=== PATIENT | female | born 1950 | race Caucasian/White ===

== ENCOUNTER 2018-10-15 12:22 | Inpatient (IN) | payer MEDICARE, MEDICAID | END 2018-10-18 15:00 | disposition home or self-care (01) | LOC: ER 12:22 → SUR 3N 15:12 | DX: M86.9 Osteomyelitis, unspecified (principal); E11.69 Type 2 diabetes mellitus with other specified complication; E11.40 Type 2 diabetes mellitus with diabetic neuropathy, unspecified; L03.039 Cellulitis of unspecified toe ==

== ENCOUNTER 2021-02-12 10:47 | Inpatient (IN) | payer BC, MEDICAID ==
[~2021-02-12] VITALS: Ht 157.5 cm; Wt 68.3 kg
[~2021-02-12 10:47] MED LIST: ACET-2119 PO; DIPH-915 PO; GLARGINE INSULIN SQ; IBUP-1984 PO; vancomycin/NS 1 GM ADD-VANTAGE 250 ML IV PRN
[2021-02-12] MEDS ORDERED: acetaminophen 325mg tablet PO STA (12:07)
[2021-02-12] MEDS ORDERED: morphine 4 MG/ML inj SYRINge IV ONE ×2 (12:10→13:05)
[2021-02-12] MEDS ORDERED: ondansetron/PF 4mg/2ml inj IV ONE (12:10)
[2021-02-12] MEDS ORDERED: piperacillin/tazo 3.375gm/50ml 50 ML IV ONE (12:10)
[2021-02-12] MEDS ORDERED: normal saline 1000ML IV soln IV ONE (12:10)
[2021-02-12] MEDS ORDERED: vancomycin/NS 1 GM ADD-VANTAGE 250 ML IV ONE (12:10)
--- NOTE | 2021-02-12 12:31 | NUR ---
PT CAME IN WITH COMPLAINTS OF ARM PAIN. UPON PHYSICAL ASSESSMENT A LARGE DRAINING WOUND WAS DISCOVERED ON LEFT FOOT. PT STATES SHE HAS BEEN DOING HER OWN WOUND CARE AND SHE HAS HAD IT FOR ABOUT 2 WEEKS.
--- NOTE | 2021-02-12 13:06 | NUR ---
VASCULAR AT BEDSIDE. PATIENT REPORTS 10/10 PAIN, PROVIDER NOTIFIED AND VERBAL ORDER OF MORPHINE 4MG IVP NOW.
[2021-02-12] MEDS ORDERED: morphine 4 MG/ML inj SYRINge IM STA (13:07)
[2021-02-12 13:09] LABS: BASOPHILS % (AUTO) 0.1 % (0-1); EOSINOPHILS # (AUTO) 0.5 X10'3 (0-0.9); EOSINOPHILS % (AUTO) 1.5 % (0-6); HEMATOCRIT 30.5 % (35.0-45.0); LYMPHOCYTES % (AUTO) 3.3 % (21-51); MEAN CORPUSCULAR HEMOGLOBIN 26.6 PG (27.0-31.0); MEAN CORPUSCULAR HGB CONC 32.8 g/dL (33.0-36.5); MEAN PLATELET VOLUME 7.1 FL (7.4-10.4); MONOCYTES # (AUTO) 0.3 X10'3 (0-0.9); MONOCYTES % (AUTO) 0.9 % (2-12); NEUTROPHILS # (AUTO) 29.3 X10'3 (1.8-7.7); NEUTROPHILS % (AUTO) 94.2 % (42-75); PLATELET COUNT 458 X10'3 (140-440); RED BLOOD COUNT 3.77 X10'6 (4.20-5.60)
[2021-02-12 13:17] LABS: ALANINE AMINOTRANSFERASE 35 U/L (12-78); ALBUMIN 1.6 G/DL (3.4-5.0); ALBUMIN/GLOBULIN RATIO 0.3 (1.1-1.5); ALKALINE PHOSPHATASE 193 IU/L (46-116); ANION GAP 21 (8-16); ASPARTATE AMINO TRANSFERASE 50 U/L (10-37); BILIRUBIN,TOTAL 1.3 MG/DL (0.1-1.0); BLOOD UREA NITROGEN 86 MG/DL (7-18); BUN/CREATININE RATIO 30.9 (6.6-38.0); CALCIUM 7.2 MG/DL (8.5-10.1); CHLORIDE 103 MMOL/L (99-107); CREATININE 2.78 MG/DL (0.40-0.90); GLUCOSE 89 MG/DL (70-104); POTASSIUM 4.7 MMOL/L (3.5-5.1); SODIUM 139 MMOL/L (135-145); TOTAL PROTEIN 7.3 G/DL (6.4-8.2); eGFR 17 ML/MIN
[2021-02-12 13:18] LABS: ETHANOL < 0.010 GM/DL (0.0-0.010)
[2021-02-12 13:19] LABS: TOTAL CARBON DIOXIDE 14.8 MMOL/L (24-32)
[2021-02-12 13:32] LABS: TOTAL CELLS COUNTED 100
[2021-02-12 13:34] LABS: ANISOCYTOSIS 2+; PLATELET ESTIMATE INCREASED; TARGET CELLS FEW
[2021-02-12 13:43] LABS: CLARITY,URINE CLEAR (Clear); GLUCOSE, URINE NEGATIVE (Neg); KETONES,URINE NEGATIVE (Neg); LEUKOCYTE ESTERASE ,URINE NEGATIVE (Neg); NITRITES, URINE NEGATIVE (Neg); OCCULT BLOOD,URINE NEGATIVE (Neg); PROTEIN,URINE TRACE mg/dl (Neg)
[2021-02-12 13:44] LABS: COLOR,URINE DARK YELLOW (Yellow); UA COLLECTION TYPE FOLEY CATH
[2021-02-12 13:51] LABS: BACTERIA,URINE NONE SEEN /HPF (Neg); MUCUS STRANDS FEW /LPF (Neg); RBC,URINE 0-2 /HPF (0-2); SQUAMOUS EPITHELIAL CELL,UR FEW /LPF (FEW); WBC,URINE 0-4 /HPF (0-4)
[2021-02-12 13:53] LABS: FINE GRANULAR CAST 0-3 /LPF (NEGATIVE); RENAL CELLS, URINE FEW /HPF
[2021-02-12 13:54] LABS: WBC CASTS 0-3 /LPF (NEGATIVE)
[2021-02-12] MEDS ORDERED: HYDR12.55 PO (14:06)
[2021-02-12] MEDS ORDERED: AMLO5TAB16 PO (14:06)
[2021-02-12] MEDS ORDERED: LISI10TA27 PO (14:06)
[2021-02-12] MEDS ORDERED: LANTUS SQ (14:06)
[2021-02-12] MEDS ORDERED: AMIT10TA6 PO (14:06)
[2021-02-12] MEDS ORDERED: METF-950 PO (14:06)
[2021-02-12] MEDS ORDERED: GABA300C PO (14:06)
[2021-02-12] MEDS ORDERED: ATOR10TA70 PO (14:06)
[2021-02-12] MEDS ORDERED: OMEP40CA21 PO (14:06)
[2021-02-12] MEDS ORDERED: mag hydrox/Alum hydrox/simeth 30ml oral suspension PO PRN (14:10)
[2021-02-12] MEDS ORDERED: HYDROcodone/acetaminophen 5mg/325mg tablet PO PRN (14:10)
[2021-02-12] MEDS ORDERED: acetaminophen 325mg tablet PO PRN ×2 (14:10)
[2021-02-12] MEDS ORDERED: magnesium hydroxide 30ml (MOM) UD suspension PO PRN (14:10)
[2021-02-12 14:12] LABS: URINE AMPHETAMINE SCREEN POSITIVE (Neg); URINE BARBITUATE SCREEN NEGATIVE (Neg); URINE BENZODIAZEPINES SCREEN NEGATIVE (Neg); URINE CANNABINOID SCREEN NEGATIVE (Neg); URINE COCAINE SCREEN NEGATIVE (Neg); URINE METHADONE SCREEN NEGATIVE (Neg); URINE OPIATE SCREEN NEGATIVE (Neg); URINE PHENCYCLIDINE SCREEN NEGATIVE (Neg)
[2021-02-12 15:00] VITALS: BP 101/48
[2021-02-12] MEDS: normal saline 1000ml 1,000 ML IV SCH (15:10)
[2021-02-12] MEDS: CefTRIAXone/D5W-Rocephin 1gm 50 ML IV SCH (15:10)
--- NOTE | 2021-02-12 15:20 | NUR ---
Patient in room ED 13. I have received report from MORIS Kevin and had the opportunity to ask questions. Awaiting patient arrival from ED to assume patient care.
[2021-02-12] MEDS: metroNIDAZOLE-Flagyl 500mg/NS 100 ML IV SCH (16:00)
[2021-02-12 17:59] VITALS: BP 101/48
[2021-02-12 18:00] VITALS: BP 87/48
--- NOTE | 2021-02-12 18:00 | NUR ---
Patient in room U 3016. I have received report from Penelope SUBRAMANIAN and had the opportunity to ask questions and assume patient care Addendum: 02/12/21 at 1847 by Padmini Mendez RN Amended: Links added.
--- NOTE | 2021-02-12 18:33 | NUR ---
Patient in room U 3017. I have received report from MORIS Washington and had the opportunity to ask questions and assume patient care. Addendum: 02/12/21 at 1834 by Penelope Hernandez RN Report not received, report given: Problems reprioritized. Patient report given, questions answered & plan of care reviewed with MORIS Washington.
--- NOTE | 2021-02-12 19:30 | NUR ---
Pt. awake and Alert to own name and only. Reoriented pt. to place and events. On assessment, Pt. is lethargic and drifts right back to sleep during conversation time. No c/o N/V at this time. Pt. has multiple wounds on bilateral upper extremities and a big left foot wound that is necrotic in appearance MEAT STUFFER and no drainage noted at this time. Left upper extremity with cellulitis weeping and a wound under the palm. Elevated the left upper extremity on a pillow for comfort. Bed in low position and call light within reach. Will continue monitoring. Addendum: 02/13/21 at 0214 by Padmini Mendez RN Amended: Links added.
[2021-02-12] MEDS: docusate sod 100mg capsule PO SCH (20:14)
[2021-02-12] MEDS: amitriptyline 10mg tablet PO SCH (20:14)
[2021-02-12] MEDS: gabapentin 300mg capsule PO SCH (20:15)
--- NOTE | 2021-02-12 21:00 | NUR ---
Offered pt. a turkey sandwich which pt. ate 25% of the sandwich. Addendum: 02/13/21 at 0220 by Padmini Mendez RN Amended: Links added.
[2021-02-12 22:00] VITALS: BP 99/42
[2021-02-13] VITALS (16 sets, daily range): BP systolic 83–116; BP diastolic 35–52
[2021-02-13] MEDS: metroNIDAZOLE-Flagyl 500mg/NS 100 ML IV SCH ×3 (00:33→16:46)
[2021-02-13] MEDS: normal saline 1000ml 1,000 ML IV SCH ×2 (00:44→10:10)
[2021-02-13] MEDS: HYDROcodone/acetaminophen 10/325mg tab PO PRN (03:40)
--- NOTE | 2021-02-13 06:00 | NUR ---
Problems reprioritized. Patient report given, questions answered & plan of care reviewed with Halina SUBRAMANIAN. Addendum: 02/13/21 at 0752 by Padmini Mendez RN Amended: Links added.
--- NOTE | 2021-02-13 06:33 | NUR ---
Patient in room PCU 3017. I have received report from trinity solano and had the opportunity to ask questions and assume patient care.
[2021-02-13] MEDS: pantoprazole 40mg Tablet.DR PO SCH (07:49)
[2021-02-13] MEDS: CefTRIAXone/D5W-Rocephin 1gm 50 ML IV SCH (07:50)
[2021-02-13] MEDS ORDERED: enoxaparin 40mg/0.4ml syringe SUBCUT SCH (08:00)
--- NOTE | 2021-02-13 08:00 | NUR ---
dr. alfaro notified of critical co2 of 11.9, orders taken
[2021-02-13 08:23] LABS: BASOPHILS % (AUTO) 0.1 % (0-1); EOSINOPHILS # (AUTO) 0.1 X10'3 (0-0.9); EOSINOPHILS % (AUTO) 0.2 % (0-6); HEMATOCRIT 31.6 % (35.0-45.0); HEMOGLOBIN 10.1 g/dl (12.0-16.0); LYMPHOCYTES # (AUTO) 0.8 X10'3 (1.1-4.8); LYMPHOCYTES % (AUTO) 2.9 % (21-51); MEAN CORPUSCULAR HEMOGLOBIN 26.9 PG (27.0-31.0); MEAN CORPUSCULAR VOLUME 84.2 FL (78-98); MONOCYTES # (AUTO) 0.3 X10'3 (0-0.9); MONOCYTES % (AUTO) 1.1 % (2-12); NEUTROPHILS # (AUTO) 27.8 X10'3 (1.8-7.7); NEUTROPHILS % (AUTO) 95.7 % (42-75); PLATELET COUNT 427 X10'3 (140-440); RED BLOOD COUNT 3.75 X10'6 (4.20-5.60); RED CELL DISTRIBUTION WIDTH 19.3 % (11.5-14.5)
[2021-02-13] MEDS: ondansetron/PF 4mg/2ml inj IV PRN (08:25)
[2021-02-13] MEDS: gabapentin 300mg capsule PO SCH (08:27)
[2021-02-13] MEDS: docusate sod 100mg capsule PO SCH ×2 (08:27→20:00)
[2021-02-13] MEDS: atorvastatin 10mg tablet PO SCH (08:27)
[2021-02-13 08:40] LABS: ALBUMIN 1.5 G/DL (3.4-5.0); ANION GAP 24 (8-16); BLOOD UREA NITROGEN 97 MG/DL (7-18); BUN/CREATININE RATIO 31.7 (6.6-38.0); CALCIUM 7.1 MG/DL (8.5-10.1); CHLORIDE 106 MMOL/L (99-107); CREATININE 3.06 MG/DL (0.40-0.90); GLUCOSE 97 MG/DL (70-104); POTASSIUM 4.1 MMOL/L (3.5-5.1); SODIUM 142 MMOL/L (135-145); VANCOMYCIN,TROUGH 16.1 UG/ML (6.0-14.0); eGFR 15 ML/MIN
[2021-02-13 08:41] LABS: TOTAL CARBON DIOXIDE 11.9 MMOL/L (24-32)
--- NOTE | 2021-02-13 08:43 | NUR ---
CRITICAL LAB VALUE TAKEN FROM LAB, REPORTED TO PRIMARY RN.
--- NOTE | 2021-02-13 08:49 | NUR ---
Page Sent promotional table spacer PAGER ID: [phone] MESSAGE: [id number] Monet. Critical CO2 11.9 Halina [phone]
[2021-02-13 09:08] LABS: ANISOCYTOSIS 2+; PLATELET ESTIMATE NORMAL; TOTAL CELLS COUNTED 100
[2021-02-13 09:09] LABS: BURR CELLS 1+
[2021-02-13 09:13] LABS: SCHISTOCYTES FEW
[2021-02-13] MEDS: sodium bicarbonate (8.4%) inj. 100 MEQ in dextrose 5%-water 1,000 ML IV SCH (11:36)
[2021-02-13] MEDS: nystatin 500,000 unit/5ML UD oral suspension PO SCH ×2 (13:00→21:00)
[2021-02-13] MEDS: nystatin 15 GM powder TP SCH ×2 (13:00→21:00)
[2021-02-13] MEDS ORDERED: heparin 10,000 units/1 ML INJ IV PRN (13:05)
[2021-02-13] MEDS ORDERED: heparin 10,000 units/1 ML INJ IV ONE (13:05)
--- NOTE | 2021-02-13 14:54 | NUR ---
Nabil Consult: Pt admit DX sepsis r/t gangrenous L foot, metabolic encephalopathy r/t sepsis, PVD, AMY, and T2DM per MD note. Tox screen positive for meth per EMR. Nabil 12 w/ L plantar foot and L hand unstageable pressure areas as well as partial thickness abrasions to L forearm and R knee per WOC note. Pt AOx2/confused per EMR not appropriate for high protein ed at this time. Pt refused first two carb controlled meals this admit though noted to have nausea per MD note; likely nausea and ALOC impacting PO hx. Noted pt hx T2DM last A1C 03.10 using Lantus and Metformin at home per EMR. RD d/w RN regarding new A1C this admit if MD agreeable. LBM 02/11 receiving routine colace. Pt would benefit from Raf smoothie ONS BID for wound healing needs once more appropriate and no longer refusing meals. Will continue to monitor for additional protein/kcal needs this admit. Rec: 1. continue carb controlled diet; encourage PO 2. Once stops refusing meals; Raf smoothie ONS BID for wound healing 3. MVI for wound healing 4. Updated A1C this admit per MD; last A1C 03.10 5. routine bowel care 6. scaled wt this admit; subsequent weekly wts Addendum: 02/13/21 at [address] Amended: Links added.
--- NOTE | 2021-02-13 16:00 | NUR ---
picc line rn @ bedside. put in 2 new pivs ,one in right upper arm,one in right forearm pt given heparin bolus prior to ct via gurney for lle ct w/o contrast , pt returned from ct with rfa iv out approx 1730 hepain gtt started with noc shift rn.
--- NOTE | 2021-02-13 18:30 | NUR ---
Patient in room PCU 3017B. I have received report from MORIS Meade and had the opportunity to ask questions and assume patient care.
--- NOTE | 2021-02-13 18:45 | NUR ---
Problems reprioritized. Patient report given, questions answered & plan of care reviewed with trinity farias.
[2021-02-13] MEDS: heparin 25,000 UNIT/250ml bag 250 ML IV SCH (18:54)
[2021-02-13] MEDS: VANCOMYCIN LEVEL IV SCH (19:17)
[2021-02-13] MEDS ORDERED: cloNIDine hcl/PF 100mcg/ml inj ONE (19:36)
[2021-02-13] MEDS ORDERED: famotidine/PF 10 mg/ml inj IV ONE (19:38)
--- NOTE | 2021-02-13 19:50 | NUR ---
Patient taken down to OR by RN
[2021-02-13] MEDS ORDERED: sevoflurane 250ml liquid IH ONE (20:31)
[2021-02-13] MEDS: amitriptyline 10mg tablet PO SCH (21:00)
[2021-02-13] MEDS: lactobacillus rhamnosus 10,000 MMU CELLS/CAPSULE PO SCH (21:18)
[2021-02-13] MEDS ORDERED: 0.9 % SODIUM CHLORIDE 10 ML VIAL ONE ×2 (21:20)
[2021-02-13] MEDS ORDERED: ePHEDrine 50MG/ML INJ. ONE (21:20)
[2021-02-13] MEDS ORDERED: ROPIVAcaine 0.5% (5mg/ml) 30ml vial ONE (21:20)
[2021-02-13] MEDS ORDERED: LIDOcaine 1%/PF 5ML 10 MG/ML VIAL ONE (21:20)
[2021-02-13] MEDS ORDERED: propofol inj 20 ML IV ONE (21:21)
[2021-02-13] MEDS ORDERED: dexamethasone sod phosphate 4mg/ml inj. ONE (21:21)
--- NOTE | 2021-02-13 21:45 | NUR ---
Received from OR via BED, accompanied by Anesthesiologist MINOO and report given by Anesthesiolgist. NE SOMNOLENT, AROUSES TO VERBAL STIMULI. DOES NOT FOLLOW VERBAL COMMANDS. NO SIGNS OR SX OF PAIN NOTED, VSS. BP WITH WIDE PULSE PRESSURE, SIMILAR TO VITALS DURING HOSPITAL STAY. 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 STUMP ELEVATED ON PILLOW, R HEEL FLOATED WELL. FC PATENT. BICARB AND HEPARIN GTTS PRESENT.
[2021-02-13] MEDS ORDERED: acetaminophen 1,000mg/100ml IV 100 ML IV PRN (21:50)
[2021-02-13] MEDS ORDERED: morphine 2 MG/ML inj. syringe IV PRN (21:50)
[2021-02-13] MEDS ORDERED: normal saline 1000ml 1,000 ML IV ONE (21:50)
[2021-02-13] MEDS ORDERED: ondansetron/PF 4mg/2ml inj IV PRN (21:50)
--- NOTE | 2021-02-13 22:38 | NUR ---
Received report from MORIS Brock from Recovery. Awaiting patient arrival to the floor.
--- NOTE | 2021-02-13 22:50 | NUR ---
Report called to receiving nurse. Transferred via BED Belongings IN PT ROOM. VITALS STABLE, NO CHANGE IN NEURO STATUS. NO PAIN NOTED. TRANSFERRED BACK TO PCU IN STABLE CONDITION. FLOOR RN TO FOLLOW UP ON HEPARIN GTT. Special Issues communicated to receiving nurse.
[2021-02-14] VITALS (12 sets, daily range): BP systolic 98–138; BP diastolic 34–67
[2021-02-14] MEDS: normal saline 1000ml 1,000 ML IV SCH ×2 (00:36→06:10)
[2021-02-14] MEDS: metroNIDAZOLE-Flagyl 500mg/NS 100 ML IV SCH ×4 (00:36→23:42)
[2021-02-14 01:40] LABS: BASOPHILS % (AUTO) 0 % (0-1); EOSINOPHILS % (AUTO) 0.1 % (0-6); HEMATOCRIT 24.6 % (35.0-45.0); HEMOGLOBIN 8.1 g/dl (12.0-16.0); LYMPHOCYTES # (AUTO) 0.4 X10'3 (1.1-4.8); LYMPHOCYTES % (AUTO) 1.7 % (21-51); MEAN CORPUSCULAR HEMOGLOBIN 26.9 PG (27.0-31.0); MEAN CORPUSCULAR HGB CONC 32.7 g/dL (33.0-36.5); MEAN CORPUSCULAR VOLUME 82.2 FL (78-98); MEAN PLATELET VOLUME 6.7 FL (7.4-10.4); MONOCYTES # (AUTO) 0.1 X10'3 (0-0.9); MONOCYTES % (AUTO) 0.5 % (2-12); NEUTROPHILS # (AUTO) 24.4 X10'3 (1.8-7.7); NEUTROPHILS % (AUTO) 97.7 % (42-75); PLATELET COUNT 313 X10'3 (140-440); RED BLOOD COUNT 2.99 X10'6 (4.20-5.60); RED CELL DISTRIBUTION WIDTH 18.5 % (11.5-14.5)
[2021-02-14 01:42] LABS: ALBUMIN 1.2 G/DL (3.4-5.0); ANION GAP 18 (8-16); BLOOD UREA NITROGEN 90 MG/DL (7-18); BUN/CREATININE RATIO 31.3 (6.6-38.0); CHLORIDE 109 MMOL/L (99-107); CREATININE 2.88 MG/DL (0.40-0.90); GLUCOSE 199 MG/DL (70-104); SODIUM 140 MMOL/L (135-145); VANCOMYCIN,TROUGH 8.4 UG/ML (6.0-14.0); eGFR 16 ML/MIN
[2021-02-14 01:59] LABS: TOTAL CARBON DIOXIDE 12.6 MMOL/L (24-32)
[2021-02-14 02:01] LABS: CALCIUM 5.5 MG/DL (8.5-10.1)
--- NOTE | 2021-02-14 02:10 | NUR ---
PTT 58 seconds. No rate change needed per protocol. Will continue to monitor
[2021-02-14] MEDS: VANCOMYCIN LEVEL IV SCH (03:00)
[2021-02-14] MEDS: sodium bicarbonate (8.4%) inj. 100 MEQ in dextrose 5%-water 1,000 ML IV SCH ×2 (03:23→16:59)
--- NOTE | 2021-02-14 06:13 | NUR ---
Problems reprioritized. Patient report given, questions answered & plan of care reviewed with Shima RN and MORIS Maynard.
--- NOTE | 2021-02-14 06:25 | NUR ---
Patient in room PCU 3017. I have received report from MORIS Miranda and had the opportunity to ask questions and assume patient care.
--- NOTE | 2021-02-14 06:39 | NUR ---
Patient in room PCU 3017. I have received report from MORIS Miranda and had the opportunity to ask questions and assume patient care.
[2021-02-14] MEDS ORDERED: vancomycin/NS 1 GM ADD-VANTAGE 250 ML IV ONE (07:40)
[2021-02-14] MEDS: CefTRIAXone/D5W-Rocephin 1gm 50 ML IV SCH (07:50)
[2021-02-14] MEDS: nystatin 15 GM powder TP SCH ×3 (07:59→21:06)
[2021-02-14] MEDS: docusate sod 100mg capsule PO SCH ×2 (08:00→20:00)
[2021-02-14] MEDS: atorvastatin 10mg tablet PO SCH (08:00)
[2021-02-14] MEDS: nystatin 500,000 unit/5ML UD oral suspension PO SCH ×3 (08:00→20:10)
[2021-02-14] MEDS: pantoprazole 40mg Tablet.DR PO SCH (08:00)
[2021-02-14] MEDS: lactobacillus rhamnosus 10,000 MMU CELLS/CAPSULE PO SCH ×2 (08:00→20:00)
[2021-02-14] MEDS: gabapentin 300mg capsule PO SCH (08:00)
[2021-02-14] MEDS: heparin 25,000 UNIT/250ml bag 250 ML IV SCH (09:47)
[2021-02-14] MEDS ORDERED: dextrose 50%-water 50ml dispensing syringe IV PRN ×2 (10:00)
[2021-02-14] MEDS ORDERED: glucagon, human recombinant 1mg kit SUBCUT PRN (10:00)
[2021-02-14] MEDS ORDERED: MESSAGE TO PHARMACY PO ONE (10:00)
[2021-02-14] MEDS ORDERED: dextrose ORAL solution 15 GM/59 ML bottle PO PRN ×2 (10:00)
[2021-02-14] MEDS ORDERED: acetaminophen 120MG suppository, rectal RC PRN (10:05)
[2021-02-14 10:56] LABS: HEMOGLOBIN A1C 9.2 % (4.5-6.2)
[2021-02-14] MEDS: insulin Lispro (HumaLOG) vial - multi-dose SQ SCH ×2 (13:25→19:25)
--- NOTE | 2021-02-14 15:20 | NUR ---
Paged Respiratory for new order for ABG Karen Triplett [id number] Pt needs ABG please. Thanks :)
--- NOTE | 2021-02-14 15:22 | NUR ---
Paged CT Re Karen Healy Rm [id number] Pt needs CT of L arm please. Thank you :)
[2021-02-14 15:45] LABS: ABG BASE EXCESS -7.7 mmol/L (-2.0-2.0); ABG HCO3 17.4 mmol/L (22.0-26.0); ABG OXYGEN SATURATION 90.5 % (94-97); ABG PCO2 (T) 36.5 mmHg (32.0-45.0); ABG PO2 (T) 73.5 mmHg (75.0-100.0); ALLEN'S TEST POSITIVE; FCOHb 0.3 % (0.0-3.9); FMetHb 0.3 % (0.0-1.5); PATIENT TEMPERATURE 38.7
--- NOTE | 2021-02-14 18:55 | NUR ---
[place] documentation: I have reviewed and agree with all interventions, assessments performed and documented by MORIS Myanard.
--- NOTE | 2021-02-14 18:55 | NUR ---
[place] Medication Administration: For this medication-pass time frame, all medication were reviewed, dispensed, administered and documented per hospital policy by MORIS Maynard.
--- NOTE | 2021-02-14 18:56 | NUR ---
Problems reprioritized. Patient report given, questions answered & plan of care reviewed with MORIS Poole. Pt sleeping comfortably at change of shift, no signs of distress noted at this time.
[2021-02-14] MEDS: amitriptyline 10mg tablet PO SCH (20:10)
[2021-02-14 20:34] LABS: TOTAL PROTEIN,URINE RANDOM 65.6 MG/DL
[2021-02-14] MEDS: insulin glargine (Lantus) pen - multi-dose SQ SCH (21:23)
[2021-02-14] MEDS: morphine 2 MG/ML inj. syringe IV PRN (21:28)
[2021-02-15] MEDS: sodium bicarbonate (8.4%) inj. 100 MEQ in dextrose 5%-water 1,000 ML IV SCH ×2 (00:30→10:22)
[2021-02-15 02:00] VITALS: BP 126/59
[2021-02-15] MEDS: VANCOMYCIN LEVEL IV SCH (03:40)
[2021-02-15] MEDS: morphine 2 MG/ML inj. syringe IV PRN ×2 (04:16→21:37)
--- NOTE | 2021-02-15 06:10 | NUR ---
Problems reprioritized. Patient report given, questions answered & plan of care reviewed with WILLARD. Addendum: 02/15/21 at 0610 by Blaise Prince RN Amended: Links added.
--- NOTE | 2021-02-15 06:21 | NUR ---
Patient in room PCU 3017. I have received report from MORIS Poole and had the opportunity to ask questions and assume patient care.
--- NOTE | 2021-02-15 06:22 | NUR ---
Patient in room PCU 3017. I have received report from MORIS Poole and had the opportunity to ask questions and assume patient care.
[2021-02-15] MEDS: HYDROcodone/acetaminophen 10/325mg tab PO PRN ×3 (06:43→23:21)
[2021-02-15 07:00] VITALS: BP 142/65
[2021-02-15] MEDS: metroNIDAZOLE-Flagyl 500mg/NS 100 ML IV SCH (08:22)
[2021-02-15] MEDS: ondansetron/PF 4mg/2ml inj IV PRN ×2 (08:22→21:43)
[2021-02-15] MEDS: CefTRIAXone/D5W-Rocephin 1gm 50 ML IV SCH (08:22)
[2021-02-15] MEDS: atorvastatin 10mg tablet PO SCH (08:23)
[2021-02-15] MEDS: lactobacillus rhamnosus 10,000 MMU CELLS/CAPSULE PO SCH ×2 (08:23→21:16)
[2021-02-15] MEDS: pantoprazole 40mg Tablet.DR PO SCH (08:23)
[2021-02-15] MEDS: docusate sod 100mg capsule PO SCH ×2 (08:23→21:17)
[2021-02-15] MEDS: gabapentin 300mg capsule PO SCH (08:23)
[2021-02-15] MEDS: nystatin 500,000 unit/5ML UD oral suspension PO SCH ×3 (08:23→21:18)
[2021-02-15] MEDS: nystatin 15 GM powder TP SCH ×3 (08:24→21:16)
--- NOTE | 2021-02-15 08:25 | NUR ---
Diabetes Consult: Hb A1C 9.2 Pt noted to be A&O x 1 and confused. Diabetes education not appropriate at this time. Pt on glycemic protocol w/ BG mostly controlled. Will continue to monitor. Addendum: 02/15/21 at [address] Amended: Links added.
[2021-02-15] MEDS: insulin Lispro (HumaLOG) vial - multi-dose SQ SCH ×2 (08:58→13:36)
--- NOTE | 2021-02-15 09:20 | NUR ---
[id number] MESSAGE: re 3018N Karen Healy, critical potassium 3.0 down from 4.0 yesterday. Would like to replace per protocol; need orders for replacement. Please adviseAleyda 2046 U
[2021-02-15 09:45] LABS: BASOPHILS % (AUTO) 0.1 % (0-1); EOSINOPHILS # (AUTO) 0.1 X10'3 (0-0.9); EOSINOPHILS % (AUTO) 0.4 % (0-6); HEMATOCRIT 27.2 % (35.0-45.0); HEMOGLOBIN 8.8 g/dl (12.0-16.0); LYMPHOCYTES % (AUTO) 5.6 % (21-51); MEAN CORPUSCULAR HEMOGLOBIN 25.9 PG (27.0-31.0); MEAN CORPUSCULAR HGB CONC 32.4 g/dL (33.0-36.5); MEAN PLATELET VOLUME 6.7 FL (7.4-10.4); MONOCYTES # (AUTO) 0.4 X10'3 (0-0.9); MONOCYTES % (AUTO) 2.2 % (2-12); NEUTROPHILS # (AUTO) 15.8 X10'3 (1.8-7.7); NEUTROPHILS % (AUTO) 91.7 % (42-75); PLATELET COUNT 310 X10'3 (140-440); RED CELL DISTRIBUTION WIDTH 18.2 % (11.5-14.5); WHITE BLOOD COUNT 17.3 X10'3 (4.5-11.0)
[2021-02-15 09:51] LABS: ALBUMIN 1.4 G/DL (3.4-5.0); ANION GAP 11 (8-16); BLOOD UREA NITROGEN 75 MG/DL (7-18); BUN/CREATININE RATIO 44.6 (6.6-38.0); CALCIUM 7.6 MG/DL (8.5-10.1); CHLORIDE 107 MMOL/L (99-107); CREATININE 1.68 MG/DL (0.40-0.90); GLUCOSE 251 MG/DL (70-104); PHOSPHORUS 5.1 MG/DL (2.3-4.5); SODIUM 143 MMOL/L (135-145); TOTAL CARBON DIOXIDE 25.4 MMOL/L (24-32); VANCOMYCIN,TROUGH 13.5 UG/ML (6.0-14.0); eGFR 30 ML/MIN
[2021-02-15 11:00] VITALS: BP 129/63
[2021-02-15] MEDS ORDERED: magnesium 4gm in 100ml NS 100 ML IV PRN (11:30)
[2021-02-15] MEDS ORDERED: magnesium Cl slow-release 64mg tablet PO PRN (11:30)
[2021-02-15] MEDS ORDERED: potassium Cl 20 mEq SR tablet PO PRN ×2 (11:30)
--- NOTE | 2021-02-15 11:42 | NUR ---
[id number] MESSAGE: re 3010P Karen Healy, critical potassium 3.0 down from 4.0 yesterday. Would like to replace per protocol; need orders for replacement. Please adviseAleyda 5978 U
[2021-02-15] MEDS ORDERED: POTASSIUM BICARB 20meq eff tab 20 MEQ TABLET.EFF PO PRN ×2 (12:15)
[2021-02-15] MEDS: vancomycin/NS 1 GM ADD-VANTAGE 250 ML IV SCH (15:18)
[2021-02-15] MEDS: potassium Cl 40MEQ/1/2NS 520ml 520 ML IV PRN ×2 (15:18→21:28)
[2021-02-15] MEDS: metroNIDAZOLE 500mg tablet PO SCH ×2 (16:34→21:17)
[2021-02-15 18:00] VITALS: BP 141/56
--- NOTE | 2021-02-15 18:30 | NUR ---
[place] Medication Administration: For this medication-pass time frame, all medication were reviewed, dispensed, administered and documented per hospital policy by MORIS Maynard.
--- NOTE | 2021-02-15 18:30 | NUR ---
[place] documentation: I have reviewed and agree with all interventions, assessments performed and documented by MORIS Maynard.
--- NOTE | 2021-02-15 18:32 | NUR ---
Problems reprioritized. Patient report given, questions answered & plan of care reviewed with MORIS Jiménez.
--- NOTE | 2021-02-15 18:35 | NUR ---
Patient in room PCU 3017. I have received report from SOCO SUBRAMANIAN and had the opportunity to ask questions and assume patient care.
[2021-02-15] MEDS: K and/or MAG REPLACEMENT MC SCH (20:00)
[2021-02-15] MEDS: insulin glargine (Lantus) pen - multi-dose SQ SCH (21:00)
[2021-02-15] MEDS: amitriptyline 10mg tablet PO SCH (21:16)
[2021-02-15 22:00] VITALS: BP 132/59
[2021-02-16 02:00] VITALS: BP 148/64
[2021-02-16] MEDS: morphine 2 MG/ML inj. syringe IV PRN ×3 (02:38→23:13)
[2021-02-16] MEDS: HYDROcodone/acetaminophen 10/325mg tab PO PRN (05:28)
[2021-02-16 06:00] VITALS: BP 141/63
--- NOTE | 2021-02-16 06:02 | NUR ---
Patient in room PCU 3017. I have received report from MORIS Moore and had the opportunity to ask questions and assume patient care.
[2021-02-16 06:13] LABS: BASOPHILS % (AUTO) 0.1 % (0-1); EOSINOPHILS # (AUTO) 0.1 X10'3 (0-0.9); EOSINOPHILS % (AUTO) 0.7 % (0-6); HEMATOCRIT 25.3 % (35.0-45.0); HEMOGLOBIN 8.5 g/dl (12.0-16.0); LYMPHOCYTES # (AUTO) 1.4 X10'3 (1.1-4.8); LYMPHOCYTES % (AUTO) 10.4 % (21-51); MEAN CORPUSCULAR HEMOGLOBIN 26.8 PG (27.0-31.0); MEAN CORPUSCULAR HGB CONC 33.6 g/dL (33.0-36.5); MEAN CORPUSCULAR VOLUME 79.7 FL (78-98); MEAN PLATELET VOLUME 6.5 FL (7.4-10.4); MONOCYTES # (AUTO) 0.4 X10'3 (0-0.9); MONOCYTES % (AUTO) 3.1 % (2-12); NEUTROPHILS # (AUTO) 11.2 X10'3 (1.8-7.7); NEUTROPHILS % (AUTO) 85.7 % (42-75); PLATELET COUNT 242 X10'3 (140-440); RED BLOOD COUNT 3.17 X10'6 (4.20-5.60); RED CELL DISTRIBUTION WIDTH 18.5 % (11.5-14.5); WHITE BLOOD COUNT 13.1 X10'3 (4.5-11.0)
--- NOTE | 2021-02-16 06:15 | NUR ---
Problems reprioritized. Patient report given, questions answered & plan of care reviewed with SOCO SUBRAMANIAN.
--- NOTE | 2021-02-16 06:16 | NUR ---
Patient in room PCU 3017. I have received report from Tino and had the opportunity to ask questions and assume patient care.
[2021-02-16 06:39] LABS: ALANINE AMINOTRANSFERASE 48 U/L (12-78); ALBUMIN 1.4 G/DL (3.4-5.0); ALBUMIN/GLOBULIN RATIO 0.3 (1.1-1.5); ALKALINE PHOSPHATASE 142 IU/L (46-116); ANION GAP 9 (8-16); ASPARTATE AMINO TRANSFERASE 125 U/L (10-37); BILIRUBIN,TOTAL 0.4 MG/DL (0.1-1.0); BLOOD UREA NITROGEN 50 MG/DL (7-18); BUN/CREATININE RATIO 42.7 (6.6-38.0); CALCIUM 8.1 MG/DL (8.5-10.1); CHLORIDE 115 MMOL/L (99-107); CREATINE KINASE 1215 U/L (26-192); CREATININE 1.17 MG/DL (0.40-0.90); GLUCOSE 141 MG/DL (70-104); POTASSIUM 4.3 MMOL/L (3.5-5.1); SODIUM 147 MMOL/L (135-145); TOTAL CARBON DIOXIDE 23.2 MMOL/L (24-32); TOTAL PROTEIN 6.8 G/DL (6.4-8.2); eGFR 46 ML/MIN
[2021-02-16 06:49] LABS: PLATELET ESTIMATE NORMAL; TOTAL CELLS COUNTED 100
[2021-02-16] MEDS: CefTRIAXone/D5W-Rocephin 1gm 50 ML IV SCH (07:51)
[2021-02-16] MEDS: metroNIDAZOLE 500mg tablet PO SCH ×3 (08:00→20:27)
[2021-02-16] MEDS: nystatin 500,000 unit/5ML UD oral suspension PO SCH ×3 (08:00→20:28)
[2021-02-16] MEDS: atorvastatin 10mg tablet PO SCH (08:00)
[2021-02-16] MEDS: K and/or MAG REPLACEMENT MC SCH ×2 (08:00→20:00)
[2021-02-16] MEDS: lactobacillus rhamnosus 10,000 MMU CELLS/CAPSULE PO SCH ×2 (08:00→20:00)
[2021-02-16] MEDS: gabapentin 300mg capsule PO SCH (08:00)
[2021-02-16] MEDS: pantoprazole 40mg Tablet.DR PO SCH (08:00)
[2021-02-16] MEDS: docusate sod 100mg capsule PO SCH ×2 (08:00→20:00)
--- NOTE | 2021-02-16 08:13 | NUR ---
[id number] MESSAGE: re 3017B Karen Healy, positive MRSA wound culture. increasing anxiety - requesting Ativan. Aleyda 1709
[2021-02-16] MEDS: nystatin 15 GM powder TP SCH ×3 (08:54→20:28)
[2021-02-16] MEDS: LORazepam 2 mg/ml vial IV PRN ×2 (09:28→20:26)
[2021-02-16] MEDS ORDERED: LORazepam 2 mg/ml vial IV ONE (10:15)
[2021-02-16 11:00] VITALS: BP 155/65
--- NOTE | 2021-02-16 11:06 | NUR ---
Reassessment: Pt s/p L BKA 02/13. Pt remains A/O x 1 and confused per EMR, DM education continues to not be appropriate at this time. Pt on CHO controlled diet though documented with 0% PO intake throughout LOS. Likely that pt would not be accepting of ONS at this time. Pt would benefit from TF to assist with meeting estimated nutrient needs given confusion, inadequate PO intake, and unstageable wound to palm of left hand likely making it difficult to eat, d/w RN. Will place TF recommendations below for IF pt to get NG tube placed and to begin TF. LBM 02/11. Pt with routine bowel care available however noted meds were held today d/t inability to swallow per EMR. Recommend BSS with ST to assess appropriateness for PO intake at this time. Will continue to follow closely. Recommendations: 1) Advance to regular diet as medically indicated in view of poor PO intake throughout LOS; pending BSS with ST 2) Consider TF to meet estimated nutrient needs given prolonged poor PO intake. IF TF: continuous Vital High Protein with goal rate of 70 mL/hr with additional 100 mL water flush Q4H, prealbumin q Saturday/, daily weights 3) Routine bowel care 4) Weekly scaled weights 5) DM education once stable/alert/oriented, A1c 9.2% Addendum: 02/16/21 at [address] Amended: Links added.
[2021-02-16] MEDS: vancomycin/NS 1 GM ADD-VANTAGE 250 ML IV SCH (12:04)
[2021-02-16] MEDS: insulin Lispro (HumaLOG) vial - multi-dose SQ SCH (13:09)
[2021-02-16] MEDS: haloperidol lactate 5mg/ml inj IM PRN (13:26)
[2021-02-16 15:00] VITALS: BP 159/63
--- NOTE | 2021-02-16 17:17 | NUR ---
Attempted to contact Brother Naren, friend Kayli and Son Miguel to get a [address] with contrast. Nobody has answered. Will keep trying, and let the NOC nurse know to try as well. PINO Rush and Dr Means are aware.
[2021-02-16 18:00] VITALS: BP 123/53
--- NOTE | 2021-02-16 18:10 | NUR ---
Problems reprioritized. Patient report given, questions answered & plan of care reviewed with MORIS Izquierdo.
--- NOTE | 2021-02-16 18:12 | NUR ---
Problems reprioritized. Patient report given, questions answered & plan of care reviewed with MORIS Izquierdo. Pt laying in bed, no signs of distress. Faxed down signed CT contrast screening form to CT.
--- NOTE | 2021-02-16 18:14 | NUR ---
[place] documentation: I have reviewed and agree with all interventions, assessments performed and documented by MORIS Maynard.
--- NOTE | 2021-02-16 18:15 | NUR ---
[place] Medication Administration: For this medication-pass time frame, all medication were reviewed, dispensed, administered and documented per hospital policy by MORIS Maynard.
[2021-02-16] MEDS ORDERED: iohexol 300mg/ml 100ml inj. ONE (18:25)
[2021-02-16] MEDS: amitriptyline 10mg tablet PO SCH (20:30)
[2021-02-16] MEDS: insulin glargine (Lantus) pen - multi-dose SQ SCH (21:00)
[2021-02-16 22:00] VITALS: BP 127/62
[2021-02-17] MEDS: haloperidol lactate 5mg/ml inj IM PRN ×2 (00:02→07:49)
[2021-02-17] MEDS: bisacodyl 10mg suppository rectal RC SCH ×2 (00:02→21:00)
[2021-02-17] MEDS: LORazepam 2 mg/ml vial IV PRN (03:59)
[2021-02-17] MEDS: morphine 2 MG/ML inj. syringe IV PRN ×3 (04:29→23:52)
[2021-02-17 06:00] VITALS: BP 169/77
--- NOTE | 2021-02-17 06:17 | NUR ---
Problems reprioritized. Patient report given, questions answered & plan of care reviewed with MORIS Nava.
[2021-02-17 06:22] LABS: BASOPHILS % (AUTO) 0.2 % (0-1); EOSINOPHILS % (AUTO) 0.2 % (0-6); HEMATOCRIT 26.1 % (35.0-45.0); HEMOGLOBIN 8.6 g/dl (12.0-16.0); LYMPHOCYTES # (AUTO) 1.1 X10'3 (1.1-4.8); LYMPHOCYTES % (AUTO) 8.4 % (21-51); MEAN CORPUSCULAR HEMOGLOBIN 26.9 PG (27.0-31.0); MEAN CORPUSCULAR HGB CONC 32.8 g/dL (33.0-36.5); MEAN PLATELET VOLUME 6.9 FL (7.4-10.4); MONOCYTES # (AUTO) 0.5 X10'3 (0-0.9); MONOCYTES % (AUTO) 3.8 % (2-12); NEUTROPHILS # (AUTO) 11.5 X10'3 (1.8-7.7); NEUTROPHILS % (AUTO) 87.4 % (42-75); PLATELET COUNT 220 X10'3 (140-440); RED BLOOD COUNT 3.19 X10'6 (4.20-5.60); RED CELL DISTRIBUTION WIDTH 18.2 % (11.5-14.5); WHITE BLOOD COUNT 13.2 X10'3 (4.5-11.0)
--- NOTE | 2021-02-17 06:37 | NUR ---
Patient in room PCU 3017. I have received report from MORIS Izquierdo and had the opportunity to ask questions and assume patient care.
[2021-02-17 07:22] LABS: ANISOCYTOSIS 2+; MICROCYTOSIS 1+; PLATELET ESTIMATE NORMAL; POIKILOCYTOSIS FEW; POLYCHROMASIA 1+; TARGET CELLS 1+
[2021-02-17] MEDS: CefTRIAXone/D5W-Rocephin 1gm 50 ML IV SCH (07:49)
[2021-02-17] MEDS: nystatin 15 GM powder TP SCH ×3 (07:53→22:46)
[2021-02-17] MEDS: gabapentin 300mg capsule PO SCH (08:00)
[2021-02-17] MEDS: metroNIDAZOLE 500mg tablet PO SCH (08:00)
[2021-02-17] MEDS: K and/or MAG REPLACEMENT MC SCH ×2 (08:00→20:00)
[2021-02-17] MEDS: lactobacillus rhamnosus 10,000 MMU CELLS/CAPSULE PO SCH ×2 (08:00→20:00)
[2021-02-17] MEDS: nystatin 500,000 unit/5ML UD oral suspension PO SCH ×3 (08:00→21:00)
[2021-02-17] MEDS: pantoprazole 40mg Tablet.DR PO SCH (08:00)
[2021-02-17 08:33] LABS: ALANINE AMINOTRANSFERASE 60 U/L (12-78); ALBUMIN 1.5 G/DL (3.4-5.0); ALBUMIN/GLOBULIN RATIO 0.3 (1.1-1.5); ALKALINE PHOSPHATASE 134 IU/L (46-116); ANION GAP 9 (8-16); ASPARTATE AMINO TRANSFERASE 140 U/L (10-37); BILIRUBIN,TOTAL 0.5 MG/DL (0.1-1.0); BLOOD UREA NITROGEN 30 MG/DL (7-18); CALCIUM 8.2 MG/DL (8.5-10.1); CHLORIDE 115 MMOL/L (99-107); CREATININE 0.91 MG/DL (0.40-0.90); GLUCOSE 155 MG/DL (70-104); POTASSIUM 3.4 MMOL/L (3.5-5.1); SODIUM 151 MMOL/L (135-145); TOTAL CARBON DIOXIDE 26.7 MMOL/L (24-32); eGFR 61 ML/MIN
[2021-02-17 08:36] LABS: CREATINE KINASE 1463 U/L (26-192)
[2021-02-17] MEDS: insulin Lispro (HumaLOG) vial - multi-dose SQ SCH ×3 (08:56→17:31)
[2021-02-17] MEDS ORDERED: ziprasidone IM 20mg inj **IM only IM ONE (10:05)
[2021-02-17] MEDS ORDERED: LORazepam 2 mg/ml vial IV PRN (10:05)
[2021-02-17 11:00] VITALS: BP 177/61
[2021-02-17] MEDS ORDERED: VANCOMYCIN LEVEL IV ONE (11:30)
[2021-02-17] MEDS ORDERED: ziprasidone IM 20mg inj **IM only IM PRN (12:55)
[2021-02-17] MEDS: vancomycin/NS 1 GM ADD-VANTAGE 250 ML IV SCH (13:01)
--- NOTE | 2021-02-17 14:27 | NUR ---
F/u: Pt s/p BSS 02/[address] recs NPO as PO unsafe d/t pt cognitive level. TORIN paged MD regarding recommendation for Corpak placement given pt with 0% PO intake throughout LOS (5 days insufficient PO intake). TORIN also placed a TC to RN regarding recommendation. TF recommendations remain below for IF pt to receive TF. LBM 02/16 documented as a smear, pt receiving routine bowel care. Will continue to follow closely. Recommendations: 1) Advance to regular diet as medically indicated in view of poor PO intake throughout LOS IF pt able to tolerate PO intake; currently NPO per ST recs; CHO controlled diet if pt averaging 65% PO intake 2) Consider TF to meet estimated nutrient needs given prolonged poor PO intake and pt now NPO following BSS with ST. IF TF: continuous Vital High Protein with goal rate of 70 mL/hr to begin at 30 mL/hr and advance by 20 mL Q8H as tolerated to goal rate 3) IF TF, additional 180 mL water flush Q4H (monitor serum Na and adjust as appropriate) with Raf BID to assist with wound healing. To administer, mix Raf packet with 120 mL water and flush tube with 30 mL water before and after administration of Raf 4) IF TF, prealbumin q Saturday/, daily weights 5) Routine bowel care 6) Weekly scaled weights 7) Protein and DM educations once stable/alert/oriented, A1c 9.2% Addendum: 02/17/21 at [address] Amended: Links added.
[2021-02-17 15:00] VITALS: BP 176/60
[2021-02-17] MEDS ORDERED: metroNIDAZOLE-Flagyl 500mg/NS 100 ML IV SCH (16:00)
--- NOTE | 2021-02-17 16:15 | NUR ---
1200 dose 1000mg vanco not administered D/T IV going bad at time of administration. Unable to undo administration D/T medication being DC'd. New IV unable to be initiated until 1610. Pharmacy notified and vanco being retimed accordingly.
[2021-02-17] MEDS ORDERED: iohexol 300mg/ml 100ml inj. ONE (16:52)
[2021-02-17] MEDS: vancomycin inj. 750 MG in normal saline 250ml IV soln 250 ML IV SCH (17:23)
[2021-02-17] MEDS: Potassium Cl inj 20 MEQ in dextrose 5%-water 990 ML IV SCH (17:53)
[2021-02-17 18:00] VITALS: BP 148/60
--- NOTE | 2021-02-17 19:06 | NUR ---
Patient in room PCU 3017. I have received report from Brandy SUBRAMANIAN and had the opportunity to ask questions and assume patient care.
--- NOTE | 2021-02-17 19:10 | NUR ---
Problems reprioritized. Patient report given, questions answered & plan of care reviewed with MORIS Arango.
[2021-02-17] MEDS: insulin glargine (Lantus) pen - multi-dose SQ SCH (21:00)
[2021-02-17] MEDS: amitriptyline 10mg tablet PO SCH (21:00)
[2021-02-17 22:00] VITALS: BP 139/59
[2021-02-17] MEDS: potassium Cl 40MEQ/1/2NS 520ml 520 ML IV PRN (23:59)
[2021-02-18] MEDS ORDERED: vancomycin inj. 750 MG in normal saline 250ml IV soln 250 ML IV SCH (01:00)
[2021-02-18 02:00] VITALS: BP 151/62
[2021-02-18] MEDS: Potassium Cl inj 20 MEQ in dextrose 5%-water 990 ML IV SCH ×2 (03:00→12:35)
[2021-02-18] MEDS: vancomycin inj. 750 MG in normal saline 250ml IV soln 250 ML IV SCH ×2 (04:04→16:53)
[2021-02-18] MEDS: morphine 2 MG/ML inj. syringe IV PRN ×3 (04:04→12:35)
[2021-02-18 06:14] LABS: BASOPHILS % (AUTO) 0.2 % (0-1); EOSINOPHILS % (AUTO) 0.2 % (0-6); HEMATOCRIT 26.6 % (35.0-45.0); HEMOGLOBIN 8.8 g/dl (12.0-16.0); MEAN CORPUSCULAR HEMOGLOBIN 26.7 PG (27.0-31.0); MEAN CORPUSCULAR HGB CONC 32.9 g/dL (33.0-36.5); MEAN CORPUSCULAR VOLUME 81.3 FL (78-98); MEAN PLATELET VOLUME 7.4 FL (7.4-10.4); MONOCYTES # (AUTO) 0.6 X10'3 (0-0.9); MONOCYTES % (AUTO) 4.8 % (2-12); NEUTROPHILS # (AUTO) 11.2 X10'3 (1.8-7.7); NEUTROPHILS % (AUTO) 86.8 % (42-75); PLATELET COUNT 302 X10'3 (140-440); RED BLOOD COUNT 3.28 X10'6 (4.20-5.60); RED CELL DISTRIBUTION WIDTH 18.6 % (11.5-14.5); WHITE BLOOD COUNT 12.9 X10'3 (4.5-11.0)
--- NOTE | 2021-02-18 06:20 | NUR ---
Patient in room PCU 3017. I have received report from Conchita SUBRAMANIAN and had the opportunity to ask questions and assume patient care.
[2021-02-18 06:48] LABS: ALANINE AMINOTRANSFERASE 57 U/L (12-78); ALBUMIN 1.6 G/DL (3.4-5.0); ALBUMIN/GLOBULIN RATIO 0.3 (1.1-1.5); ALKALINE PHOSPHATASE 113 IU/L (46-116); ANION GAP 9 (8-16); ASPARTATE AMINO TRANSFERASE 98 U/L (10-37); BILIRUBIN,TOTAL 0.5 MG/DL (0.1-1.0); BLOOD UREA NITROGEN 17 MG/DL (7-18); CALCIUM 7.7 MG/DL (8.5-10.1); CHLORIDE 115 MMOL/L (99-107); CREATININE 0.81 MG/DL (0.40-0.90); GLUCOSE 196 MG/DL (70-104); POTASSIUM 3.4 MMOL/L (3.5-5.1); SODIUM 153 MMOL/L (135-145); TOTAL CARBON DIOXIDE 28.7 MMOL/L (24-32); TOTAL PROTEIN 6.8 G/DL (6.4-8.2); eGFR 70 ML/MIN
[2021-02-18 06:50] LABS: CREATINE KINASE 1056 U/L (26-192)
[2021-02-18 07:12] LABS: ANISOCYTOSIS 2+; MICROCYTOSIS 1+; PLATELET ESTIMATE NORMAL; POLYCHROMASIA 2+; TARGET CELLS 1+
[2021-02-18] MEDS: CefTRIAXone/D5W-Rocephin 1gm 50 ML IV SCH (07:27)
[2021-02-18 07:42] VITALS: BP 171/70
[2021-02-18] MEDS: K and/or MAG REPLACEMENT MC SCH ×2 (08:00→20:00)
[2021-02-18] MEDS: nystatin 15 GM powder TP SCH ×3 (08:00→21:00)
[2021-02-18] MEDS: pantoprazole 40mg Tablet.DR PO SCH (08:00)
[2021-02-18] MEDS: nystatin 500,000 unit/5ML UD oral suspension PO SCH ×3 (08:00→21:00)
[2021-02-18] MEDS: lactobacillus rhamnosus 10,000 MMU CELLS/CAPSULE PO SCH ×2 (08:00→20:02)
[2021-02-18] MEDS: gabapentin 300mg capsule PO SCH (08:00)
--- NOTE | 2021-02-18 08:57 | NUR ---
Problems reprioritized. Patient report given, questions answered & plan of care reviewed with Shana SUBRAMANIAN.
--- NOTE | 2021-02-18 09:00 | NUR ---
Pt is very sleepy and opens her eyes but does not respond to any of the questions pt appears very sedated, slurring words. Very hard to assess pt since she is unable to eat, swallow or be awake enough to assess LOC.
[2021-02-18] MEDS: insulin Lispro (HumaLOG) vial - multi-dose SQ SCH ×2 (09:34→20:01)
[2021-02-18 11:00] VITALS: BP 154/56
[2021-02-18 15:00] VITALS: BP 154/69
--- NOTE | 2021-02-18 18:30 | NUR ---
Problems reprioritized. Patient report given, questions answered & plan of care reviewed with Whitney SUBRAMANIAN.
[2021-02-18 19:00] VITALS: BP 160/73
[2021-02-18] MEDS ORDERED: ringers solution, lacted 1,000 ML IV ONE (19:05)
[2021-02-18] MEDS: insulin glargine (Lantus) pen - multi-dose SQ SCH (21:00)
[2021-02-18] MEDS: amitriptyline 10mg tablet PO SCH (21:00)
[2021-02-18] MEDS: bisacodyl 10mg suppository rectal RC SCH (21:00)
[2021-02-18 23:00] VITALS: BP 144/69
[2021-02-19] VITALS (10 sets, daily range): BP systolic 95–146; BP diastolic 54–74
[2021-02-19] MEDS: morphine 2 MG/ML inj. syringe IV PRN ×2 (01:05→11:16)
[2021-02-19] MEDS ORDERED: VANCOMYCIN LEVEL IV ONE (03:30)
--- NOTE | 2021-02-19 06:48 | NUR ---
Patient in room PCU 3017. I have received report from Whitney SUBRAMANIAN and had the opportunity to ask questions and assume patient care.
[2021-02-19] MEDS ORDERED: BUPIVAcaine 0.5% inj/PF 30 ML ONE (06:51)
[2021-02-19 06:53] LABS: BASOPHILS % (AUTO) 0.2 % (0-1); EOSINOPHILS # (AUTO) 0.1 X10'3 (0-0.9); EOSINOPHILS % (AUTO) 0.6 % (0-6); HEMOGLOBIN 8.9 g/dl (12.0-16.0); LYMPHOCYTES # (AUTO) 1.5 X10'3 (1.1-4.8); LYMPHOCYTES % (AUTO) 11.7 % (21-51); MEAN CORPUSCULAR HEMOGLOBIN 26.6 PG (27.0-31.0); MEAN CORPUSCULAR HGB CONC 33.1 g/dL (33.0-36.5); MEAN CORPUSCULAR VOLUME 80.3 FL (78-98); MEAN PLATELET VOLUME 7.6 FL (7.4-10.4); MONOCYTES # (AUTO) 0.5 X10'3 (0-0.9); MONOCYTES % (AUTO) 3.7 % (2-12); NEUTROPHILS # (AUTO) 10.4 X10'3 (1.8-7.7); NEUTROPHILS % (AUTO) 83.8 % (42-75); PLATELET COUNT 367 X10'3 (140-440); RED BLOOD COUNT 3.36 X10'6 (4.20-5.60); RED CELL DISTRIBUTION WIDTH 18.5 % (11.5-14.5); WHITE BLOOD COUNT 12.4 X10'3 (4.5-11.0)
[2021-02-19 06:58] LABS: ALANINE AMINOTRANSFERASE 45 U/L (12-78); ALBUMIN 1.6 G/DL (3.4-5.0); ALBUMIN/GLOBULIN RATIO 0.3 (1.1-1.5); ALKALINE PHOSPHATASE 123 IU/L (46-116); ANION GAP 10 (8-16); ASPARTATE AMINO TRANSFERASE 57 U/L (10-37); BILIRUBIN,TOTAL 0.4 MG/DL (0.1-1.0); BLOOD UREA NITROGEN 12 MG/DL (7-18); BUN/CREATININE RATIO 14.8 (6.6-38.0); CALCIUM 7.3 MG/DL (8.5-10.1); CHLORIDE 111 MMOL/L (99-107); CREATININE 0.81 MG/DL (0.40-0.90); GLUCOSE 179 MG/DL (70-104); POTASSIUM 3.5 MMOL/L (3.5-5.1); SODIUM 148 MMOL/L (135-145); TOTAL CARBON DIOXIDE 27.4 MMOL/L (24-32); TOTAL PROTEIN 6.9 G/DL (6.4-8.2); eGFR 70 ML/MIN
[2021-02-19 06:59] LABS: CREATINE KINASE 558 U/L (26-192)
[2021-02-19] MEDS: gabapentin 300mg capsule PO SCH (07:28)
[2021-02-19] MEDS: lactobacillus rhamnosus 10,000 MMU CELLS/CAPSULE PO SCH ×2 (07:28→20:00)
[2021-02-19] MEDS: CefTRIAXone/D5W-Rocephin 1gm 50 ML IV SCH (07:29)
[2021-02-19] MEDS: pantoprazole 40mg Tablet.DR PO SCH (07:32)
[2021-02-19] MEDS ORDERED: fentaNYL/PF 50MCG/1 ML 2ML syringe ONE ×2 (07:44→08:32)
[2021-02-19] MEDS ORDERED: midazolam 1 mg/ML 2ml injection ONE (07:45)
[2021-02-19] MEDS ORDERED: LIDOcaine 2% (20mg/ml) 5ml vial ONE (07:46)
[2021-02-19] MEDS ORDERED: propofol inj 20 ML IV ONE (07:46)
[2021-02-19] MEDS ORDERED: ringers solution, lacted 1,000 ML IV SCH (07:50)
[2021-02-19] MEDS ORDERED: labetalol 20mg/4ml (5mg/ml) syringe IV PRN (07:50)
[2021-02-19] MEDS ORDERED: hydrALAZINE 20mg/ml inj. IV PRN (07:50)
[2021-02-19] MEDS ORDERED: morphine 2 MG/ML inj. syringe IV PRN (07:50)
[2021-02-19] MEDS ORDERED: morphine 4 MG/ML inj SYRINge IV PRN (07:50)
[2021-02-19] MEDS ORDERED: fentaNYL/PF 50MCG/1 ML 2ML syringe IV PRN (07:50)
[2021-02-19] MEDS ORDERED: ondansetron/PF 4mg/2ml inj IV PRN (07:50)
[2021-02-19] MEDS: nystatin 500,000 unit/5ML UD oral suspension PO SCH ×3 (08:00→21:43)
[2021-02-19] MEDS: nystatin 15 GM powder TP SCH ×3 (08:00→21:43)
[2021-02-19] MEDS: K and/or MAG REPLACEMENT MC SCH ×2 (08:00→20:00)
[2021-02-19] MEDS ORDERED: ondansetron/PF 4mg/2ml inj ONE (08:31)
[2021-02-19] MEDS ORDERED: albumin (Human) 5% 250ml 250 ML IV ONE (08:32)
[2021-02-19] MEDS: Potassium Cl inj 20 MEQ in dextrose 5%-water 990 ML IV SCH ×3 (09:00→20:30)
[2021-02-19] MEDS: vancomycin inj. 750 MG in normal saline 250ml IV soln 250 ML IV SCH ×2 (09:00→16:27)
--- NOTE | 2021-02-19 09:15 | NUR ---
Received from OR via BED, accompanied by Anesthesiologist and report given by Anesthesiologist. PATIENT WAKING UP, NO S/S OF PAIN, V/S WNL, SCD ON, 22G TO LUE, RIGHT CHEST . . F/C DRAINING CLEAR YELLOW URINE. WV DRESSING TO LEFT FORARM WITH DRESSING TO HAND AND ELBOW WELL AND RIGHT ELBOW ALSO. DRESSING CDI. WV AT 125 CONTINOUYS SUCTION WITH MINIMAL OUTPUT AND NO LEAKS DETECTED.
--- NOTE | 2021-02-19 09:32 | NUR ---
Patient in room PCU 3017. I have received report from DARWIN SUBRAMANIAN IN PACU RECOVERY and had the opportunity to ask questions and assume patient care.
[2021-02-19] MEDS: fentaNYL/PF 50MCG/1 ML 2ML syringe IV PRN ×2 (09:47→09:52)
--- NOTE | 2021-02-19 09:55 | NUR ---
PATIENT AWAKE BUT DIORENTS EASILY, DENIES PAIN, V/S WNL, SCD ON, 22G TO LUE, RIGHT CHEST . . F/C DRAINING CLEAR YELLOW URINE. WV DRESSING TO LEFT FORARM WITH DRESSING TO HAND AND ELBOW WELL AND RIGHT ELBOW ALSO. DRESSING CDI. WV AT 125 CONTINOUYS SUCTION WITH MINIMAL OUTPUT AND NO LEAKS DETECTED. TAKEN TO 3017 W/ ALL KAYLEENS AND REPORT GIVEN TO RN WHO HAS TAKEN OVER PATIENT CARE.
[2021-02-19] MEDS: insulin Lispro (HumaLOG) vial - multi-dose SQ SCH (13:43)
[2021-02-19] MEDS: HYDROcodone/acetaminophen 10/325mg tab PO PRN (16:27)
--- NOTE | 2021-02-19 18:00 | NUR ---
Patient in room PCU 3017. I have received report from Shana SUBRAMANIAN and had the opportunity to ask questions and assume patient care.
--- NOTE | 2021-02-19 19:01 | NUR ---
Problems reprioritized. Patient report given, questions answered & plan of care reviewed with Marie SUBRAMANIAN.
[2021-02-19] MEDS: bisacodyl 10mg suppository rectal RC SCH (21:00)
[2021-02-19] MEDS: insulin glargine (Lantus) pen - multi-dose SQ SCH (21:00)
[2021-02-19] MEDS: amitriptyline 10mg tablet PO SCH (21:43)
--- NOTE | 2021-02-19 22:43 | NUR ---
Poor Appetite Patient has stated that "I dont feel like eating", some pudding was given with crushed medications. No Humalog was given due to poor appetite. Declined Keysha anaya. Will continue to monitor.
[2021-02-20 02:00] VITALS: BP 118/61
[2021-02-20] MEDS: vancomycin inj. 750 MG in normal saline 250ml IV soln 250 ML IV SCH ×3 (03:09→16:43)
[2021-02-20] MEDS: Potassium Cl inj 20 MEQ in dextrose 5%-water 990 ML IV SCH ×2 (05:00→14:29)
[2021-02-20 06:00] VITALS: BP 120/56
--- NOTE | 2021-02-20 06:30 | NUR ---
Problems reprioritized. Patient report given, questions answered & plan of care reviewed with Shy SUBRAMANIAN.
--- NOTE | 2021-02-20 07:00 | NUR ---
Patient in room PCU 3017. I have received report from Marie SUBRAMANIAN and had the opportunity to ask questions and assume patient care.
[2021-02-20 07:28] LABS: BASOPHILS % (AUTO) 0.2 % (0-1); EOSINOPHILS # (AUTO) 0.1 X10'3 (0-0.9); EOSINOPHILS % (AUTO) 0.9 % (0-6); HEMATOCRIT 22.8 % (35.0-45.0); HEMOGLOBIN 7.3 g/dl (12.0-16.0); LYMPHOCYTES # (AUTO) 1.4 X10'3 (1.1-4.8); LYMPHOCYTES % (AUTO) 12.7 % (21-51); MEAN CORPUSCULAR HEMOGLOBIN 26.7 PG (27.0-31.0); MEAN CORPUSCULAR HGB CONC 32.2 g/dL (33.0-36.5); MEAN CORPUSCULAR VOLUME 83.1 FL (78-98); MEAN PLATELET VOLUME 7.7 FL (7.4-10.4); MONOCYTES # (AUTO) 0.5 X10'3 (0-0.9); MONOCYTES % (AUTO) 4.8 % (2-12); NEUTROPHILS # (AUTO) 9.1 X10'3 (1.8-7.7); NEUTROPHILS % (AUTO) 81.4 % (42-75); PLATELET COUNT 382 X10'3 (140-440); RED BLOOD COUNT 2.74 X10'6 (4.20-5.60); RED CELL DISTRIBUTION WIDTH 18.8 % (11.5-14.5); WHITE BLOOD COUNT 11.2 X10'3 (4.5-11.0)
[2021-02-20 07:52] LABS: ALANINE AMINOTRANSFERASE 29 U/L (12-78); ALBUMIN 1.6 G/DL (3.4-5.0); ALBUMIN/GLOBULIN RATIO 0.4 (1.1-1.5); ALKALINE PHOSPHATASE 92 IU/L (46-116); ANION GAP 9 (8-16); ASPARTATE AMINO TRANSFERASE 34 U/L (10-37); BILIRUBIN,TOTAL 0.4 MG/DL (0.1-1.0); BLOOD UREA NITROGEN 11 MG/DL (7-18); BUN/CREATININE RATIO 13.3 (6.6-38.0); CALCIUM 6.5 MG/DL (8.5-10.1); CHLORIDE 107 MMOL/L (99-107); CREATINE KINASE 267 U/L (26-192); CREATININE 0.83 MG/DL (0.40-0.90); GLUCOSE 207 MG/DL (70-104); POTASSIUM 3.7 MMOL/L (3.5-5.1); SODIUM 141 MMOL/L (135-145); TOTAL CARBON DIOXIDE 25.3 MMOL/L (24-32); TOTAL PROTEIN 6.1 G/DL (6.4-8.2); eGFR 68 ML/MIN
[2021-02-20] MEDS: nystatin 15 GM powder TP SCH ×3 (08:00→21:10)
[2021-02-20] MEDS: CefTRIAXone/D5W-Rocephin 1gm 50 ML IV SCH (08:00)
[2021-02-20] MEDS: K and/or MAG REPLACEMENT MC SCH ×2 (08:00→20:00)
--- NOTE | 2021-02-20 09:11 | NUR ---
Patient pulled out her PIV, paged PICC nurse for assistance in placing new one.
[2021-02-20] MEDS: insulin Lispro (HumaLOG) vial - multi-dose SQ SCH ×2 (09:28→19:54)
[2021-02-20] MEDS: pantoprazole 40mg Tablet.DR PO SCH (09:32)
[2021-02-20] MEDS: nystatin 500,000 unit/5ML UD oral suspension PO SCH ×3 (09:32→21:09)
[2021-02-20] MEDS: gabapentin 300mg capsule PO SCH (09:32)
[2021-02-20] MEDS: HYDROcodone/acetaminophen 10/325mg tab PO PRN ×2 (09:32→12:25)
[2021-02-20] MEDS: lactobacillus rhamnosus 10,000 MMU CELLS/CAPSULE PO SCH ×2 (09:32→20:00)
[2021-02-20 09:37] LABS: ANISOCYTOSIS 2+; HYPOCHROMASIA 1+; PLATELET ESTIMATE NORMAL
[2021-02-20 09:46] LABS: STOMATOCYTES 2+
[2021-02-20 09:47] LABS: LARGE PLATELETS FEW; POIKILOCYTOSIS 2+
[2021-02-20 11:00] VITALS: BP 141/52
--- NOTE | 2021-02-20 13:36 | NUR ---
PAGER ID: [phone] MESSAGE: Patient Karen Healy room 7514K, may I advance her to a carb controlled diet? Alos, her hand is itchy and has a rash that looks similar to scabies? Can you take a look? Thanks Shy ext [phone]
[2021-02-20] MEDS: morphine 2 MG/ML inj. syringe IV PRN ×2 (14:30→19:28)
[2021-02-20 15:00] VITALS: BP 115/40
[2021-02-20] MEDS ORDERED: ondansetron 4mg rapidly disintigrating tab PO PRN (16:10)
[2021-02-20 18:00] VITALS: BP 123/56
--- NOTE | 2021-02-20 18:00 | NUR ---
Patient in room PCU 3017. I have received report from Shy SUBRAMANIAN and had the opportunity to ask questions and assume patient care.
--- NOTE | 2021-02-20 18:23 | NUR ---
Problems reprioritized. Patient report given, questions answered & plan of care reviewed with Marie SUBRAMANIAN.
[2021-02-20] MEDS: insulin glargine (Lantus) pen - multi-dose SQ SCH (21:00)
[2021-02-20] MEDS: bisacodyl 10mg suppository rectal RC SCH (21:00)
[2021-02-20] MEDS: amitriptyline 10mg tablet PO SCH (21:09)
[2021-02-20 22:00] VITALS: BP 110/52
[2021-02-21] MEDS: Potassium Cl inj 20 MEQ in dextrose 5%-water 990 ML IV SCH ×3 (01:19→12:50)
[2021-02-21 02:00] VITALS: BP 126/97
[2021-02-21] MEDS: morphine 2 MG/ML inj. syringe IV PRN (03:53)
[2021-02-21] MEDS: diphenhydrAMINE 25mg capsule PO PRN (03:53)
[2021-02-21 06:00] VITALS: BP 123/90
--- NOTE | 2021-02-21 06:48 | NUR ---
Problems reprioritized. Patient report given, questions answered & plan of care reviewed with Ginny SUBRAMANIAN.
[2021-02-21 07:11] LABS: BASOPHILS % (AUTO) 0.3 % (0-1); EOSINOPHILS # (AUTO) 0.1 X10'3 (0-0.9); EOSINOPHILS % (AUTO) 0.8 % (0-6); LYMPHOCYTES # (AUTO) 1.7 X10'3 (1.1-4.8); MEAN CORPUSCULAR HEMOGLOBIN 26.6 PG (27.0-31.0); MEAN CORPUSCULAR HGB CONC 32.7 g/dL (33.0-36.5); MEAN CORPUSCULAR VOLUME 81.5 FL (78-98); MEAN PLATELET VOLUME 7.8 FL (7.4-10.4); MONOCYTES # (AUTO) 0.6 X10'3 (0-0.9); MONOCYTES % (AUTO) 4.7 % (2-12); NEUTROPHILS # (AUTO) 10.7 X10'3 (1.8-7.7); NEUTROPHILS % (AUTO) 81.2 % (42-75); PLATELET COUNT 395 X10'3 (140-440); RED BLOOD COUNT 2.62 X10'6 (4.20-5.60); RED CELL DISTRIBUTION WIDTH 19.1 % (11.5-14.5); WHITE BLOOD COUNT 13.2 X10'3 (4.5-11.0)
[2021-02-21 07:17] LABS: HEMATOCRIT 21.3 % (35.0-45.0)
--- NOTE | 2021-02-21 07:22 | NUR ---
rebecca Price PAGER ID: [phone] MESSAGE: room 3010H Karen Healy, critical lab values, HGB 7.0, HCT 21.3
[2021-02-21 07:46] LABS: ALANINE AMINOTRANSFERASE 26 U/L (12-78); ALBUMIN 1.5 G/DL (3.4-5.0); ALBUMIN/GLOBULIN RATIO 0.3 (1.1-1.5); ALKALINE PHOSPHATASE 102 IU/L (46-116); ANION GAP 10 (8-16); ASPARTATE AMINO TRANSFERASE 34 U/L (10-37); BILIRUBIN,TOTAL 0.4 MG/DL (0.1-1.0); BLOOD UREA NITROGEN 8 MG/DL (7-18); BUN/CREATININE RATIO 10.8 (6.6-38.0); CHLORIDE 103 MMOL/L (99-107); CREATINE KINASE 260 U/L (26-192); CREATININE 0.74 MG/DL (0.40-0.90); GLUCOSE 168 MG/DL (70-104); POTASSIUM 4.2 MMOL/L (3.5-5.1); SODIUM 136 MMOL/L (135-145); TOTAL CARBON DIOXIDE 23.2 MMOL/L (24-32); TOTAL PROTEIN 6.1 G/DL (6.4-8.2); eGFR 78 ML/MIN
[2021-02-21] MEDS: K and/or MAG REPLACEMENT MC SCH ×2 (08:00→20:00)
[2021-02-21] MEDS: nystatin 15 GM powder TP SCH ×3 (08:00→21:00)
[2021-02-21] MEDS: insulin Lispro (HumaLOG) vial - multi-dose SQ SCH ×2 (09:30→13:39)
[2021-02-21] MEDS: nystatin 500,000 unit/5ML UD oral suspension PO SCH ×3 (09:31→21:00)
[2021-02-21] MEDS: pantoprazole 40mg Tablet.DR PO SCH (09:31)
[2021-02-21] MEDS: CefTRIAXone/D5W-Rocephin 1gm 50 ML IV SCH (09:31)
[2021-02-21] MEDS: lactobacillus rhamnosus 10,000 MMU CELLS/CAPSULE PO SCH ×2 (09:31→20:00)
[2021-02-21] MEDS: gabapentin 300mg capsule PO SCH (09:31)
[2021-02-21 11:00] VITALS: BP 120/50
--- NOTE | 2021-02-21 14:16 | NUR ---
Reassessment: Per EMR pt s/p incision and drainage of left forearm, amputation of left index finger, and wound VAC placement to left forearm 02/19. PO diet was advanced to full liquids 02/18 and pt s/p f/u BSS 02/[address] recs to continue full liquid diet though patient's diet was advanced to CHO controlled 02/20. Pt documented with 25-50% still not meeting estimated nutrient needs. Recommend f/u BSS with ST to determine appropriateness for current diet order. Pt would likely benefit from EN to assist with meeting estimated nutrient needs given prolonged inadequate PO intake with increased protein needs. LBM 02/20. Will continue to follow closely. Recommendations: 1) Advance to regular diet as medically indicated in view of poor PO intake throughout LOS IF pt able to tolerate PO intake; CHO controlled diet if pt averaging 65% PO intake 2) Consider TF to meet estimated nutrient needs given prolonged poor PO intake and pt now NPO following BSS with ST. IF TF: continuous Vital High Protein with goal rate of 70 mL/hr to begin at 30 mL/hr and advance by 20 mL Q8H as tolerated to goal rate 3) IF TF, additional 180 mL water flush Q4H (monitor serum Na and adjust as appropriate) with Raf BID to assist with wound healing. To administer, mix Raf packet with 120 mL water and flush tube with 30 mL water before and after administration of Raf 4) IF TF, prealbumin q Saturday/, daily weights 5) Routine bowel care 6) Weekly scaled weights 7) Protein and DM educations once stable/alert/oriented, A1c 9.2% Addendum: 02/21/21 at [address] Amended: Links added.
[2021-02-21 15:00] VITALS: BP 170/73
[2021-02-21] MEDS ORDERED: acetaminophen 650mg rectal suppository RC PRN (15:20)
--- NOTE | 2021-02-21 15:42 | NUR ---
F/u: Written protein and DM educations with Raf coupons and RD contact information placed in patient's chart. Addendum: 02/21/21 at [address] Amended: Links added.
[2021-02-21] MEDS: vancomycin inj. 750 MG in normal saline 250ml IV soln 250 ML IV SCH (16:03)
[2021-02-21] MEDS ORDERED: ringers solution, lacted 1,000 ML IV ONE (16:30)
[2021-02-21 20:51] VITALS: BP 138/62
[2021-02-21] MEDS: bisacodyl 10mg suppository rectal RC SCH (21:00)
[2021-02-21] MEDS: insulin glargine (Lantus) pen - multi-dose SQ SCH (21:00)
[2021-02-21] MEDS: amitriptyline 10mg tablet PO SCH (21:00)
[2021-02-21 21:52] LABS: ABG BASE EXCESS 1.1 mmol/L (-2.0-2.0); ABG HCO3 23.2 mmol/L (22.0-26.0); ABG PCO2 (T) 28.3 mmHg (32.0-45.0); ABG PO2 (T) 77.6 mmHg (75.0-100.0); ALLEN'S TEST POSITIVE; FCOHb 0.1 % (0.0-3.9); FLOW 2 L/min; FMetHb 0.3 % (0.0-1.5); FO2Hb 94.6 % (94-97); PATIENT TEMPERATURE 38.3; TOTAL HEMOGLOBIN 7.5 G/dl (12.0-16.0)
[2021-02-21] MEDS ORDERED: LIDOcaine 2% 10ml TOPICAL JELLY (Urojet) TP ONE (22:00)
[2021-02-21] MEDS: acetaminophen 1,000mg/100ml IV 100 ML IV SCH (22:44)
--- NOTE | 2021-02-21 22:45 | NUR ---
ACETOMINOFEN IV ADMINISTERED, AFTER TYLENOL RC WAS ADMINISTERED AT AROUND 2100. PATIENT IS STILL NON RESPONSIVE. WILL CONTINUE TO MONITOR.
[2021-02-21 22:54] LABS: BASOPHILS # (AUTO) 0.1 X10'3 (0-0.2); BASOPHILS % (AUTO) 0.4 % (0-1); EOSINOPHILS % (AUTO) 0.2 % (0-6); HEMATOCRIT 23.3 % (35.0-45.0); HEMOGLOBIN 7.6 g/dl (12.0-16.0); LYMPHOCYTES # (AUTO) 2.1 X10'3 (1.1-4.8); LYMPHOCYTES % (AUTO) 14.7 % (21-51); MEAN CORPUSCULAR HEMOGLOBIN 27.2 PG (27.0-31.0); MEAN CORPUSCULAR HGB CONC 32.4 g/dL (33.0-36.5); MEAN CORPUSCULAR VOLUME 83.9 FL (78-98); MEAN PLATELET VOLUME 7.7 FL (7.4-10.4); MONOCYTES # (AUTO) 0.9 X10'3 (0-0.9); MONOCYTES % (AUTO) 6.1 % (2-12); NEUTROPHILS # (AUTO) 11.2 X10'3 (1.8-7.7); NEUTROPHILS % (AUTO) 78.6 % (42-75); PLATELET COUNT 441 X10'3 (140-440); RED BLOOD COUNT 2.78 X10'6 (4.20-5.60); RED CELL DISTRIBUTION WIDTH 19.4 % (11.5-14.5); WHITE BLOOD COUNT 14.3 X10'3 (4.5-11.0)
[2021-02-21 23:05] LABS: D-DIMER 4.33 MG/L FEU (0-0.50)
[2021-02-21 23:21] LABS: ALBUMIN 1.6 G/DL (3.4-5.0); ANION GAP 11 (8-16); BILIRUBIN,TOTAL 0.5 MG/DL (0.1-1.0); BLOOD UREA NITROGEN 6 MG/DL (7-18); BUN/CREATININE RATIO 5.9 (6.6-38.0); CALCIUM 7.3 MG/DL (8.5-10.1); CHLORIDE 97 MMOL/L (99-107); CREATININE 1.01 MG/DL (0.40-0.90); GLUCOSE 127 MG/DL (70-104); PHOSPHORUS 2.7 MG/DL (2.3-4.5); POTASSIUM 3.9 MMOL/L (3.5-5.1); SODIUM 132 MMOL/L (135-145); TOTAL CARBON DIOXIDE 23.8 MMOL/L (24-32); TOTAL PROTEIN 6.8 G/DL (6.4-8.2); TROPONIN I < 0.04 NG/ML (0.0-0.05); eGFR 54 ML/MIN
[2021-02-21 23:22] LABS: ALANINE AMINOTRANSFERASE 23 U/L (12-78); ALBUMIN/GLOBULIN RATIO 0.3 (1.1-1.5); ALKALINE PHOSPHATASE 115 IU/L (46-116); ASPARTATE AMINO TRANSFERASE 35 U/L (10-37)
[2021-02-21 23:27] LABS: MAGNESIUM 0.8 MG/DL (1.5-2.4)
[2021-02-22] VITALS (10 sets, daily range): BP systolic 114–147; BP diastolic 42–66
[2021-02-22] MEDS ORDERED: magnesium Cl slow-release 64mg tablet PO PRN (00:10)
[2021-02-22] MEDS ORDERED: potassium Cl 20 mEq SR tablet PO PRN ×2 (00:10)
[2021-02-22] MEDS ORDERED: potassium Cl 40MEQ/1/2NS 520ml 520 ML IV PRN (00:10)
[2021-02-22] MEDS ORDERED: magnesium 2GM in 50ml NS 50 ML IV ONE (00:20)
[2021-02-22] MEDS: magnesium 4gm in 100ml NS 100 ML IV PRN ×2 (00:32→09:22)
--- NOTE | 2021-02-22 02:29 | NUR ---
RAPID RESPONSE patient was found unresponsive, breathing heavily at 30 breaths per minute, and warm to touch. Axillary temperature was 103.3 deg F, rectal temperature wasn't obtained due to thermometer not working. Tylenol 650mg was given rectally at 2130 and ice packs were made and put into armpits and groin area as well as a cold rags over head. After 30 min of no signs of relief, MD Kumar was called about the situation and that the patient has had amputations and procedures done by Krysten and is currently on Vancomycin and Rocephin; his reply was , "Call Rapid response". Rapid response was called. Labs were drawn, CT and Xray was done, MD Kumar at bedside okayed Tylenol IV for treatment as well. Whitney SUBRAMANIAN called MD Bashir about the situation and he replied that it was the hospitalist's decision to make. MD Kumar also stated that no blood will be transfused tonight. By 0000, Patient's temperature was down to 100 deg F and was making slight movements, grimacing, and yawning but the eyes would still wander or be fixed. As of this hour, Patient's temperature is up again at 101 deg F orally. Will continue to monitor.
[2021-02-22] MEDS: vancomycin inj. 750 MG in normal saline 250ml IV soln 250 ML IV SCH ×2 (03:10→17:30)
--- NOTE | 2021-02-22 06:13 | NUR ---
Patient in room PCU 3017. I have received report from MORIS Olson and had the opportunity to ask questions and assume patient care.
[2021-02-22] MEDS ORDERED: midazolam 1 mg/ML 2ml injection ONE (07:31)
[2021-02-22] MEDS ORDERED: fentaNYL /PF 50mcg/ml 5ml ampule ONE (07:31)
[2021-02-22] MEDS ORDERED: sevoflurane 250ml liquid IH ONE (07:35)
[2021-02-22] MEDS ORDERED: propofol 10mg/ml 20ml vial IV ONE (07:35)
[2021-02-22] MEDS: nystatin 15 GM powder TP SCH ×3 (08:00→20:34)
[2021-02-22] MEDS: nystatin 500,000 unit/5ML UD oral suspension PO SCH ×3 (08:00→20:12)
[2021-02-22] MEDS: pantoprazole 40mg Tablet.DR PO SCH (08:00)
[2021-02-22] MEDS: gabapentin 300mg capsule PO SCH (08:00)
[2021-02-22] MEDS: K and/or MAG REPLACEMENT MC SCH ×4 (08:00→20:00)
[2021-02-22] MEDS ORDERED: ROPIVAcaine 0.5% (5mg/ml) 30ml vial ONE (08:14)
--- NOTE | 2021-02-22 08:55 | NUR ---
ADMITTED TO PACU FROM OR ACCOMPANIED BY ANESTHESIA. INTIAL PHYSICAL ASSESSMENT DONE AND RECORDED. REPORT RECEIVED FROM ANESTHESIA.
--- NOTE | 2021-02-22 09:43 | NUR ---
F/u: Pt s/p BSS today with ST recs NPO as pt unable to swallow safely with impaired cognition. Pt now day 10 with insufficient nutrition. TC to RN to discuss recommendation for tube feeds to assist with meeting estimated nutrient needs. TORIN fernandez MD with recommendation for TF as well. Noted pt in OR today for I&D with left arm amputation. Will continue to follow closely. Addendum: 02/22/21 at [address] Amended: Links added.
[2021-02-22 09:46] LABS: BASOPHILS # (AUTO) 0.1 X10'3 (0-0.2); BASOPHILS % (AUTO) 0.5 % (0-1); EOSINOPHILS % (AUTO) 0.3 % (0-6); HEMATOCRIT 30.7 % (35.0-45.0); LYMPHOCYTES # (AUTO) 1.9 X10'3 (1.1-4.8); LYMPHOCYTES % (AUTO) 14.9 % (21-51); MEAN CORPUSCULAR HEMOGLOBIN 27.6 PG (27.0-31.0); MEAN CORPUSCULAR HGB CONC 32.6 g/dL (33.0-36.5); MEAN CORPUSCULAR VOLUME 84.6 FL (78-98); MEAN PLATELET VOLUME 7.6 FL (7.4-10.4); MONOCYTES # (AUTO) 0.9 X10'3 (0-0.9); MONOCYTES % (AUTO) 7.2 % (2-12); NEUTROPHILS # (AUTO) 9.8 X10'3 (1.8-7.7); NEUTROPHILS % (AUTO) 77.1 % (42-75); PLATELET COUNT 443 X10'3 (140-440); RED BLOOD COUNT 3.63 X10'6 (4.20-5.60); RED CELL DISTRIBUTION WIDTH 18.7 % (11.5-14.5); WHITE BLOOD COUNT 12.7 X10'3 (4.5-11.0)
[2021-02-22 09:57] LABS: PARTIAL THROMBOPLASTIN TIME 33 SECONDS (22-32)
--- NOTE | 2021-02-22 10:05 | NUR ---
PACU DISCHARGE CRITERIA MET, REPORT GIVEN TO FLOOR. DENIES PAIN OR DISCOMFORT. PT IS STABLE AND ADEQUATELY RECOVERED FROM ANESTHESIA. PT HAS STABLE AIRWAY PATENCY, RESPIRATORY FUNCTION TO INCLUDE RESPIRATORY RATE AND O2 SAT. HEART RATE, BLOOD PRESSURE STABLE AND HYDRATION ADEQUATE. MENTAL STATUS IS APPROPRIATE. PAIN AND NAUSEA CONTROLLED. REFER TO PACU SPREADSHEET FOR VITAL SIGNS.
[2021-02-22 10:11] LABS: ALANINE AMINOTRANSFERASE 23 U/L (12-78); ALBUMIN 1.6 G/DL (3.4-5.0); ALBUMIN/GLOBULIN RATIO 0.3 (1.1-1.5); ALKALINE PHOSPHATASE 103 IU/L (46-116); ANION GAP 9 (8-16); ASPARTATE AMINO TRANSFERASE 41 U/L (10-37); BILIRUBIN,TOTAL 0.7 MG/DL (0.1-1.0); BLOOD UREA NITROGEN 7 MG/DL (7-18); BUN/CREATININE RATIO 7.3 (6.6-38.0); CHLORIDE 99 MMOL/L (99-107); CREATINE KINASE 220 U/L (26-192); CREATININE 0.96 MG/DL (0.40-0.90); GLUCOSE 189 MG/DL (70-104); POTASSIUM 4.9 MMOL/L (3.5-5.1); SODIUM 130 MMOL/L (135-145); TOTAL CARBON DIOXIDE 22.3 MMOL/L (24-32); TOTAL PROTEIN 6.5 G/DL (6.4-8.2); eGFR 58 ML/MIN
[2021-02-22] MEDS: Potassium Cl inj 20 MEQ in dextrose 5%-water 990 ML IV SCH ×2 (15:29→17:00)
[2021-02-22] MEDS: insulin Lispro (HumaLOG) vial - multi-dose SQ SCH ×2 (15:32→20:09)
[2021-02-22] MEDS: lactobacillus rhamnosus 10,000 MMU CELLS/CAPSULE PO SCH ×2 (16:15→20:00)
--- NOTE | 2021-02-22 18:30 | NUR ---
Patient in room PCU 3019H. I have received report from MORIS Gross and had the opportunity to ask questions and assume patient care.
[2021-02-22] MEDS: amitriptyline 10mg tablet PO SCH (20:12)
[2021-02-22] MEDS: bisacodyl 10mg suppository rectal RC SCH (20:13)
[2021-02-22] MEDS: acetaminophen 1,000mg/100ml IV 100 ML IV SCH (20:33)
[2021-02-22] MEDS: haloperidol lactate 5mg/ml inj IM PRN (21:50)
[2021-02-22] MEDS: insulin glargine (Lantus) pen - multi-dose SQ SCH (21:50)
--- NOTE | 2021-02-22 21:50 | NUR ---
Attempted to do accu check on patient, but she swung her arm and punched in the chest and kicked my hip twice. Patient said "Quit bothering me, go away." Tried to orient her and explain what is going on and why she needs an accu check, but patient kept saying "go away" and swinging her arm. Unable to check and unable to administer Lantus. PRN IM Haldol given for agitation per MD order. Will continue to monitor.
--- NOTE | 2021-02-22 22:00 | NUR ---
Patient refused vital signs
--- NOTE | 2021-02-22 22:49 | NUR ---
Patient resting comfortably on even and unlabored respirations. In no apparent distress. Will continue to monitor.
[2021-02-23 02:00] VITALS: BP 139/45
[2021-02-23] MEDS: Potassium Cl inj 20 MEQ in dextrose 5%-water 990 ML IV SCH ×2 (02:54→09:04)
[2021-02-23] MEDS: vancomycin inj. 750 MG in normal saline 250ml IV soln 250 ML IV SCH ×2 (03:04→16:59)
[2021-02-23] MEDS: ringers solution, lacted 1,000 ML IV SCH ×5 (03:14→23:23)
[2021-02-23] MEDS: haloperidol lactate 5mg/ml inj IM PRN (05:41)
[2021-02-23 06:00] VITALS: BP 129/45
--- NOTE | 2021-02-23 06:28 | NUR ---
Problems reprioritized. Patient report given, questions answered & plan of care reviewed with MORIS Gross.
[2021-02-23] MEDS: K and/or MAG REPLACEMENT MC SCH ×4 (08:00→20:00)
[2021-02-23] MEDS: nystatin 500,000 unit/5ML UD oral suspension PO SCH ×3 (08:50→20:18)
[2021-02-23] MEDS: nystatin 15 GM powder TP SCH ×3 (08:50→20:45)
[2021-02-23] MEDS: pantoprazole 40mg Tablet.DR PO SCH (08:50)
[2021-02-23] MEDS: lactobacillus rhamnosus 10,000 MMU CELLS/CAPSULE PO SCH ×2 (08:50→20:18)
[2021-02-23] MEDS: gabapentin 300mg capsule PO SCH (08:50)
[2021-02-23] MEDS: morphine 2 MG/ML inj. syringe IV PRN ×2 (08:51→14:57)
[2021-02-23 09:51] LABS: BASOPHILS % (AUTO) 0.3 % (0-1); EOSINOPHILS # (AUTO) 0.1 X10'3 (0-0.9); EOSINOPHILS % (AUTO) 0.6 % (0-6); HEMATOCRIT 32.6 % (35.0-45.0); HEMOGLOBIN 10.7 g/dl (12.0-16.0); LYMPHOCYTES # (AUTO) 1.2 X10'3 (1.1-4.8); LYMPHOCYTES % (AUTO) 13.5 % (21-51); MEAN CORPUSCULAR HEMOGLOBIN 28.1 PG (27.0-31.0); MEAN CORPUSCULAR HGB CONC 32.9 g/dL (33.0-36.5); MEAN CORPUSCULAR VOLUME 85.4 FL (78-98); MEAN PLATELET VOLUME 8.1 FL (7.4-10.4); MONOCYTES # (AUTO) 0.7 X10'3 (0-0.9); MONOCYTES % (AUTO) 7.3 % (2-12); NEUTROPHILS % (AUTO) 78.3 % (42-75); PLATELET COUNT 453 X10'3 (140-440); RED BLOOD COUNT 3.81 X10'6 (4.20-5.60); RED CELL DISTRIBUTION WIDTH 18.6 % (11.5-14.5)
[2021-02-23 10:08] LABS: ALANINE AMINOTRANSFERASE 29 U/L (12-78); ALBUMIN 1.7 G/DL (3.4-5.0); ALBUMIN/GLOBULIN RATIO 0.3 (1.1-1.5); ALKALINE PHOSPHATASE 102 IU/L (46-116); ANION GAP 11 (8-16); ASPARTATE AMINO TRANSFERASE 58 U/L (10-37); BILIRUBIN,TOTAL 0.5 MG/DL (0.1-1.0); BLOOD UREA NITROGEN 10 MG/DL (7-18); BUN/CREATININE RATIO 12.5 (6.6-38.0); CALCIUM 7.9 MG/DL (8.5-10.1); CHLORIDE 107 MMOL/L (99-107); GLUCOSE 135 MG/DL (70-104); POTASSIUM 3.7 MMOL/L (3.5-5.1); SODIUM 138 MMOL/L (135-145); TOTAL CARBON DIOXIDE 20.1 MMOL/L (24-32); TOTAL PROTEIN 7.2 G/DL (6.4-8.2); eGFR 71 ML/MIN
[2021-02-23] MEDS: insulin Lispro (HumaLOG) vial - multi-dose SQ SCH ×2 (10:34→15:01)
[2021-02-23 11:00] VITALS: BP 121/49
[2021-02-23] MEDS ORDERED: HYDROcodone/acetaminophen 5mg/325mg tablet PO PRN (11:30)
[2021-02-23] MEDS: HYDROcodone/acetaminophen 10/325mg tab PO PRN ×2 (11:49→20:19)
[2021-02-23 15:00] VITALS: BP 113/48
[2021-02-23 18:00] VITALS: BP 121/49
[2021-02-23] MEDS: diphenhydrAMINE 25mg capsule PO PRN (20:18)
[2021-02-23] MEDS: LORazepam 0.5 MG tablet PO PRN (20:18)
[2021-02-23] MEDS: amitriptyline 10mg tablet PO SCH (20:18)
[2021-02-23] MEDS: insulin glargine (Lantus) pen - multi-dose SQ SCH (21:00)
[2021-02-23] MEDS: bisacodyl 10mg suppository rectal RC SCH (21:00)
[2021-02-23 22:00] VITALS: BP 103/48
[2021-02-24 02:00] VITALS: BP 135/63
[2021-02-24] MEDS: Potassium Cl inj 20 MEQ in dextrose 5%-water 990 ML IV SCH (02:24)
[2021-02-24] MEDS: ringers solution, lacted 1,000 ML IV SCH ×4 (03:20→23:20)
[2021-02-24] MEDS ORDERED: VANCOMYCIN LEVEL IV ONE (03:30)
[2021-02-24] MEDS: Potassium Cl inj 20 MEQ in dextrose 5%-water 1,000 ML IV SCH ×3 (03:40→22:51)
[2021-02-24] MEDS: morphine 2 MG/ML inj. syringe IV PRN (04:43)
[2021-02-24 05:00] LABS: BASOPHILS # (AUTO) 0.1 X10'3 (0-0.2); BASOPHILS % (AUTO) 0.7 % (0-1); EOSINOPHILS # (AUTO) 0.1 X10'3 (0-0.9); HEMATOCRIT 27.9 % (35.0-45.0); HEMOGLOBIN 9.1 g/dl (12.0-16.0); LYMPHOCYTES # (AUTO) 1.2 X10'3 (1.1-4.8); LYMPHOCYTES % (AUTO) 15.1 % (21-51); MEAN CORPUSCULAR HEMOGLOBIN 27.7 PG (27.0-31.0); MEAN CORPUSCULAR HGB CONC 32.6 g/dL (33.0-36.5); MEAN CORPUSCULAR VOLUME 85.2 FL (78-98); MEAN PLATELET VOLUME 7.9 FL (7.4-10.4); MONOCYTES # (AUTO) 0.7 X10'3 (0-0.9); NEUTROPHILS % (AUTO) 74.2 % (42-75); PLATELET COUNT 432 X10'3 (140-440); RED BLOOD COUNT 3.28 X10'6 (4.20-5.60); RED CELL DISTRIBUTION WIDTH 18.9 % (11.5-14.5)
[2021-02-24] MEDS: vancomycin inj. 750 MG in normal saline 250ml IV soln 250 ML IV SCH (05:07)
[2021-02-24 05:20] LABS: ALANINE AMINOTRANSFERASE 27 U/L (12-78); ALBUMIN 1.5 G/DL (3.4-5.0); ALBUMIN/GLOBULIN RATIO 0.3 (1.1-1.5); ALKALINE PHOSPHATASE 110 IU/L (46-116); ANION GAP 11 (8-16); ASPARTATE AMINO TRANSFERASE 44 U/L (10-37); BILIRUBIN,TOTAL 0.3 MG/DL (0.1-1.0); BLOOD UREA NITROGEN 8 MG/DL (7-18); BUN/CREATININE RATIO 10.7 (6.6-38.0); CALCIUM 7.5 MG/DL (8.5-10.1); CHLORIDE 108 MMOL/L (99-107); CREATININE 0.75 MG/DL (0.40-0.90); GLUCOSE 120 MG/DL (70-104); SODIUM 140 MMOL/L (135-145); TOTAL CARBON DIOXIDE 21.3 MMOL/L (24-32); TOTAL PROTEIN 5.9 G/DL (6.4-8.2); eGFR 77 ML/MIN
[2021-02-24 05:32] LABS: VANCOMYCIN,TROUGH 24.7 UG/ML (6.0-14.0)
--- NOTE | 2021-02-24 05:43 | NUR ---
Vanco trough: 24.7-stopped vanco gtt
[2021-02-24 06:00] VITALS: BP 91/57
--- NOTE | 2021-02-24 06:51 | NUR ---
Problems reprioritized. Patient report given, questions answered & plan of care reviewed with MORIS Sanchez.
--- NOTE | 2021-02-24 06:54 | NUR ---
Patient in room PCU 3017. I have received report from Felecia SUBRAMANIAN and had the opportunity to ask questions and assume patient care.
[2021-02-24 06:57] LABS: PLATELET ESTIMATE NORMAL
[2021-02-24 06:59] LABS: ANISOCYTOSIS 2+; HYPOCHROMASIA 1+; POLYCHROMASIA 1+
[2021-02-24] MEDS: K and/or MAG REPLACEMENT MC SCH ×4 (08:00→20:00)
[2021-02-24] MEDS: pantoprazole 40mg Tablet.DR PO SCH (08:01)
[2021-02-24] MEDS: HYDROcodone/acetaminophen 10/325mg tab PO PRN ×3 (08:01→21:06)
[2021-02-24] MEDS: lactobacillus rhamnosus 10,000 MMU CELLS/CAPSULE PO SCH ×2 (08:01→19:35)
[2021-02-24] MEDS: gabapentin 300mg capsule PO SCH (08:01)
[2021-02-24] MEDS: nystatin 15 GM powder TP SCH ×3 (08:02→21:47)
[2021-02-24] MEDS: nystatin 500,000 unit/5ML UD oral suspension PO SCH ×3 (08:02→21:06)
[2021-02-24 11:00] VITALS: BP 118/63
[2021-02-24] MEDS: insulin Lispro (HumaLOG) vial - multi-dose SQ SCH ×2 (13:03→19:34)
[2021-02-24] MEDS: vancomycin/NS 1 GM ADD-VANTAGE 250 ML IV SCH (13:08)
[2021-02-24 15:00] VITALS: BP 115/66
--- NOTE | 2021-02-24 15:08 | NUR ---
Reassessment: Pt s/p f/u BSS 02/[address] pureed food with thin liquids. Pt documented with 50% PO intake x 2 meals following diet advancement however overall 0-25% PO intake not meeting estimated nutrient needs. Pt now day 12 with insufficient PO intake. Given prolonged poor PO intake and documented general weakness pt currently meats criteria for malnutrition. Pt would benefit from EN as pt clearly unable to meet estimated nutrient intake with PO intake alone. Patient's poor nutrition status has been d/w CNO. TF recommendations below remain in place for if pt to get EN access. Noted pt documented to be independent at meals though pt is A/O x 2 and confused per physical assessment. Pt would benefit from assistance with meals d/t possibly difficulty feeding self given ALOC. LBM 02/23. Will continue to follow closely. Recommendations: 1) Continue pureed food with thin liquids per ST recs; Advance to regular diet as medically indicated in view of poor PO intake throughout LOS; CHO controlled diet if average PO intake greater than 65% 2) Encourage PO intake and assist with meals given pt A/O x 2 and confused, left arm amputation, and poor PO intake 3) TF to meet estimated nutrient needs given prolonged poor PO intake. IF TF: continuous Vital High Protein with goal rate of 70 mL/hr to begin at 30 mL/hr and advance by 20 mL Q8H as tolerated to goal rate 4) IF TF, additional 180 mL water flush Q4H (monitor serum Na and adjust as appropriate) with Raf BID to assist with wound healing. To administer, mix Raf packet with 120 mL water and flush tube with 30 mL water before and after administration of Raf 5) IF TF, prealbumin q Saturday/, daily weights 6) Routine bowel care 7) Weekly scaled weights 8) Protein and DM educations once stable/alert/oriented, A1c 9.2%; Written materials placed in patient's chart with Raf barron and RD contact information Addendum: 02/24/21 at [address] Amended: Links added.
[2021-02-24 18:00] VITALS: BP 122/62
--- NOTE | 2021-02-24 18:17 | NUR ---
Problems reprioritized. Patient report given, questions answered & plan of care reviewed with Emely SUBRAMANIAN. Patient stable at transfer of care.
--- NOTE | 2021-02-24 18:20 | NUR ---
Patient in room PCU 3017. I have received report from Reyna SUBRAMANIAN and had the opportunity to ask questions and assume patient care.
[2021-02-24] MEDS: diphenhydrAMINE 25mg capsule PO PRN (19:35)
[2021-02-24] MEDS: LORazepam 0.5 MG tablet PO PRN (19:35)
[2021-02-24] MEDS: bisacodyl 10mg suppository rectal RC SCH (21:00)
[2021-02-24] MEDS: insulin glargine (Lantus) pen - multi-dose SQ SCH (21:00)
[2021-02-24] MEDS: amitriptyline 10mg tablet PO SCH (21:05)
[2021-02-24] MEDS ORDERED: nicotine 7mg patch - 24hr TD ONE (21:15)
[2021-02-25 02:00] VITALS: BP 111/63
[2021-02-25] MEDS: HYDROcodone/acetaminophen 10/325mg tab PO PRN ×4 (03:51→23:56)
[2021-02-25] MEDS: ringers solution, lacted 1,000 ML IV SCH ×3 (06:00→19:20)
[2021-02-25 06:23] LABS: BASOPHILS % (AUTO) 0.6 % (0-1); EOSINOPHILS # (AUTO) 0.1 X10'3 (0-0.9); EOSINOPHILS % (AUTO) 0.9 % (0-6); HEMATOCRIT 28.3 % (35.0-45.0); HEMOGLOBIN 9.5 g/dl (12.0-16.0); LYMPHOCYTES # (AUTO) 1.6 X10'3 (1.1-4.8); LYMPHOCYTES % (AUTO) 21.7 % (21-51); MEAN CORPUSCULAR HEMOGLOBIN 28.2 PG (27.0-31.0); MEAN CORPUSCULAR HGB CONC 33.5 g/dL (33.0-36.5); MEAN CORPUSCULAR VOLUME 84.2 FL (78-98); MEAN PLATELET VOLUME 7.9 FL (7.4-10.4); MONOCYTES # (AUTO) 0.6 X10'3 (0-0.9); MONOCYTES % (AUTO) 8.2 % (2-12); NEUTROPHILS # (AUTO) 5.2 X10'3 (1.8-7.7); NEUTROPHILS % (AUTO) 68.6 % (42-75); PLATELET COUNT 390 X10'3 (140-440); RED BLOOD COUNT 3.36 X10'6 (4.20-5.60); RED CELL DISTRIBUTION WIDTH 18.7 % (11.5-14.5); WHITE BLOOD COUNT 7.6 X10'3 (4.5-11.0)
--- NOTE | 2021-02-25 06:27 | NUR ---
Problems reprioritized. Patient report given, questions answered & plan of care reviewed with Kelsey SUBRAMANIAN.
[2021-02-25 06:34] LABS: ALBUMIN 1.5 G/DL (3.4-5.0); ANION GAP 10 (8-16); BILIRUBIN,TOTAL 0.3 MG/DL (0.1-1.0); BLOOD UREA NITROGEN 4 MG/DL (7-18); BUN/CREATININE RATIO 5.4 (6.6-38.0); CALCIUM 7.7 MG/DL (8.5-10.1); CHLORIDE 107 MMOL/L (99-107); CREATININE 0.74 MG/DL (0.40-0.90); GLUCOSE 131 MG/DL (70-104); POTASSIUM 4.1 MMOL/L (3.5-5.1); SODIUM 139 MMOL/L (135-145); TOTAL CARBON DIOXIDE 22.1 MMOL/L (24-32); TOTAL PROTEIN 2.6 G/DL (6.4-8.2); eGFR 78 ML/MIN
[2021-02-25 06:35] LABS: ALANINE AMINOTRANSFERASE 29 U/L (12-78); ALBUMIN/GLOBULIN RATIO 1.4 (1.1-1.5); ALKALINE PHOSPHATASE 115 IU/L (46-116); ASPARTATE AMINO TRANSFERASE 30 U/L (10-37)
[2021-02-25] MEDS: K and/or MAG REPLACEMENT MC SCH ×4 (07:07→20:00)
[2021-02-25 07:11] LABS: ANISOCYTOSIS 2+; MICROCYTOSIS 1+; PLATELET ESTIMATE NORMAL
[2021-02-25] MEDS: nystatin 500,000 unit/5ML UD oral suspension PO SCH ×3 (07:24→23:54)
[2021-02-25] MEDS: pantoprazole 40mg Tablet.DR PO SCH (07:24)
[2021-02-25] MEDS: Potassium Cl inj 20 MEQ in dextrose 5%-water 1,000 ML IV SCH ×2 (07:24→19:24)
[2021-02-25] MEDS: gabapentin 300mg capsule PO SCH (07:24)
[2021-02-25] MEDS: lactobacillus rhamnosus 10,000 MMU CELLS/CAPSULE PO SCH ×2 (07:24→23:45)
[2021-02-25] MEDS: nystatin 15 GM powder TP SCH ×2 (07:25→13:16)
[2021-02-25 07:35] VITALS: BP 138/60
--- NOTE | 2021-02-25 08:28 | NUR ---
NO MORNING INSULIN GIVEN, BS 123 PT REFUSED BREAKFAST
[2021-02-25 11:00] VITALS: BP 144/51
[2021-02-25] MEDS: vancomycin/NS 1 GM ADD-VANTAGE 250 ML IV SCH (13:16)
[2021-02-25] MEDS: insulin Lispro (HumaLOG) vial - multi-dose SQ SCH (13:33)
[2021-02-25] MEDS: LORazepam 0.5 MG tablet PO PRN ×2 (14:21→23:46)
[2021-02-25 15:00] VITALS: BP 136/67
[2021-02-25] MEDS: haloperidol lactate 5mg/ml inj IM PRN (16:14)
[2021-02-25 18:00] VITALS: BP 170/85
--- NOTE | 2021-02-25 18:43 | NUR ---
Patient in room PCU 3017. I have received report from Kelsey SUBRAMANIAN and had the opportunity to ask questions and assume patient care.
[2021-02-25] MEDS: insulin glargine (Lantus) pen - multi-dose SQ SCH (21:00)
[2021-02-25 22:00] VITALS: BP 155/72
[2021-02-25] MEDS: amitriptyline 10mg tablet PO SCH (23:45)
[2021-02-25] MEDS: heparin, porcine 5000 units/ml vial SQ SCH (23:47)
[2021-02-25] MEDS: bisacodyl 10mg suppository rectal RC SCH (23:53)
[2021-02-26 02:00] VITALS: BP 156/65
[2021-02-26] MEDS: ringers solution, lacted 1,000 ML IV SCH ×4 (02:00→22:00)
[2021-02-26] MEDS: Potassium Cl inj 20 MEQ in dextrose 5%-water 1,000 ML IV SCH (04:59)
[2021-02-26] MEDS: LORazepam 0.5 MG tablet PO PRN (05:14)
[2021-02-26] MEDS: HYDROcodone/acetaminophen 10/325mg tab PO PRN ×3 (05:16→19:33)
[2021-02-26 07:00] VITALS: BP 140/60
[2021-02-26] MEDS: K and/or MAG REPLACEMENT MC SCH ×4 (08:00→20:00)
--- NOTE | 2021-02-26 09:01 | NUR ---
Problems reprioritized. Patient report given, questions answered & plan of care reviewed with Komal SUBRAMANIAN.
[2021-02-26] MEDS: lactobacillus rhamnosus 10,000 MMU CELLS/CAPSULE PO SCH ×2 (09:49→19:36)
[2021-02-26] MEDS: gabapentin 300mg capsule PO SCH (09:49)
[2021-02-26] MEDS: pantoprazole 40mg Tablet.DR PO SCH (09:49)
[2021-02-26] MEDS: heparin, porcine 5000 units/ml vial SQ SCH ×2 (09:49→19:36)
[2021-02-26] MEDS: nystatin 15 GM powder TP SCH ×4 (09:51→21:00)
[2021-02-26 10:22] LABS: BASOPHILS % (AUTO) 0.4 % (0-1); EOSINOPHILS % (AUTO) 0.4 % (0-6); HEMATOCRIT 30.1 % (35.0-45.0); HEMOGLOBIN 9.9 g/dl (12.0-16.0); LYMPHOCYTES # (AUTO) 1.3 X10'3 (1.1-4.8); MEAN CORPUSCULAR HEMOGLOBIN 27.7 PG (27.0-31.0); MEAN CORPUSCULAR HGB CONC 32.8 g/dL (33.0-36.5); MEAN CORPUSCULAR VOLUME 84.6 FL (78-98); MEAN PLATELET VOLUME 7.7 FL (7.4-10.4); MONOCYTES # (AUTO) 0.7 X10'3 (0-0.9); MONOCYTES % (AUTO) 8.9 % (2-12); NEUTROPHILS # (AUTO) 5.8 X10'3 (1.8-7.7); NEUTROPHILS % (AUTO) 74.3 % (42-75); PLATELET COUNT 415 X10'3 (140-440); RED BLOOD COUNT 3.56 X10'6 (4.20-5.60); RED CELL DISTRIBUTION WIDTH 19.2 % (11.5-14.5); WHITE BLOOD COUNT 7.9 X10'3 (4.5-11.0)
[2021-02-26 10:38] LABS: ALBUMIN 1.5 G/DL (3.4-5.0); ANION GAP 10 (8-16); BILIRUBIN,TOTAL 0.4 MG/DL (0.1-1.0); BLOOD UREA NITROGEN 6 MG/DL (7-18); BUN/CREATININE RATIO 7.3 (6.6-38.0); CALCIUM 7.8 MG/DL (8.5-10.1); CHLORIDE 106 MMOL/L (99-107); CREATININE 0.82 MG/DL (0.40-0.90); GLUCOSE 167 MG/DL (70-104); POTASSIUM 3.9 MMOL/L (3.5-5.1); SODIUM 140 MMOL/L (135-145); TOTAL CARBON DIOXIDE 23.7 MMOL/L (24-32); TOTAL PROTEIN 6.3 G/DL (6.4-8.2); eGFR 69 ML/MIN
[2021-02-26 10:39] LABS: ALANINE AMINOTRANSFERASE 21 U/L (12-78); ALBUMIN/GLOBULIN RATIO 0.3 (1.1-1.5); ALKALINE PHOSPHATASE 121 IU/L (46-116); ASPARTATE AMINO TRANSFERASE 27 U/L (10-37)
[2021-02-26 11:00] VITALS: BP 142/50
[2021-02-26 11:33] LABS: PLATELET ESTIMATE NORMAL
[2021-02-26 11:34] LABS: ANISOCYTOSIS 2+; STOMATOCYTES 1+
[2021-02-26] MEDS: nystatin 500,000 unit/5ML UD oral suspension PO SCH ×2 (13:55→21:00)
[2021-02-26] MEDS: insulin Lispro (HumaLOG) vial - multi-dose SQ SCH ×2 (13:58→19:30)
[2021-02-26] MEDS: vancomycin/NS 1 GM ADD-VANTAGE 250 ML IV SCH (15:21)
--- NOTE | 2021-02-26 18:26 | NUR ---
Problems reprioritized. Patient report given, questions answered & plan of care reviewed with Whitney SUBRAMANIAN.
[2021-02-26 19:00] VITALS: BP 146/64
[2021-02-26] MEDS: amitriptyline 10mg tablet PO SCH (21:00)
[2021-02-26] MEDS: insulin glargine (Lantus) pen - multi-dose SQ SCH (21:00)
[2021-02-26] MEDS: bisacodyl 10mg suppository rectal RC SCH (21:00)
[2021-02-26 23:00] VITALS: BP 124/56
[2021-02-27 03:00] VITALS: BP 139/62
[2021-02-27] MEDS: ringers solution, lacted 1,000 ML IV SCH ×3 (04:40→18:00)
--- NOTE | 2021-02-27 05:01 | NUR ---
pt refused blood sugar assessment
[2021-02-27] MEDS: HYDROcodone/acetaminophen 10/325mg tab PO PRN ×3 (05:17→17:41)
[2021-02-27] MEDS: nystatin 500,000 unit/5ML UD oral suspension PO SCH ×3 (08:00→21:00)
[2021-02-27] MEDS: K and/or MAG REPLACEMENT MC SCH ×4 (08:00→20:00)
[2021-02-27] MEDS: nystatin 15 GM powder TP SCH ×3 (08:00→21:00)
[2021-02-27 08:53] LABS: BASOPHILS # (AUTO) 0.1 X10'3 (0-0.2); BASOPHILS % (AUTO) 0.7 % (0-1); EOSINOPHILS # (AUTO) 0.1 X10'3 (0-0.9); EOSINOPHILS % (AUTO) 0.7 % (0-6); HEMATOCRIT 31.1 % (35.0-45.0); HEMOGLOBIN 10.5 g/dl (12.0-16.0); LYMPHOCYTES # (AUTO) 1.7 X10'3 (1.1-4.8); LYMPHOCYTES % (AUTO) 18.2 % (21-51); MEAN CORPUSCULAR HEMOGLOBIN 28.2 PG (27.0-31.0); MEAN CORPUSCULAR HGB CONC 33.6 g/dL (33.0-36.5); MEAN PLATELET VOLUME 7.9 FL (7.4-10.4); MONOCYTES # (AUTO) 0.8 X10'3 (0-0.9); MONOCYTES % (AUTO) 8.7 % (2-12); NEUTROPHILS # (AUTO) 6.9 X10'3 (1.8-7.7); NEUTROPHILS % (AUTO) 71.7 % (42-75); PLATELET COUNT 424 X10'3 (140-440); RED CELL DISTRIBUTION WIDTH 18.8 % (11.5-14.5); WHITE BLOOD COUNT 9.6 X10'3 (4.5-11.0)
[2021-02-27 09:05] LABS: ALANINE AMINOTRANSFERASE 20 U/L (12-78); ALBUMIN 1.8 G/DL (3.4-5.0); ALBUMIN/GLOBULIN RATIO 0.4 (1.1-1.5); ALKALINE PHOSPHATASE 148 IU/L (46-116); ANION GAP 11 (8-16); ASPARTATE AMINO TRANSFERASE 25 U/L (10-37); BILIRUBIN,TOTAL 0.4 MG/DL (0.1-1.0); BLOOD UREA NITROGEN 7 MG/DL (7-18); BUN/CREATININE RATIO 8.4 (6.6-38.0); CALCIUM 7.8 MG/DL (8.5-10.1); CHLORIDE 103 MMOL/L (99-107); CREATININE 0.83 MG/DL (0.40-0.90); GLUCOSE 138 MG/DL (70-104); POTASSIUM 3.8 MMOL/L (3.5-5.1); SODIUM 137 MMOL/L (135-145); TOTAL CARBON DIOXIDE 23.4 MMOL/L (24-32); TOTAL PROTEIN 6.6 G/DL (6.4-8.2); eGFR 68 ML/MIN
[2021-02-27] MEDS: heparin, porcine 5000 units/ml vial SQ SCH ×2 (09:45→19:07)
[2021-02-27] MEDS: gabapentin 300mg capsule PO SCH (09:46)
[2021-02-27] MEDS: pantoprazole 40mg Tablet.DR PO SCH (09:46)
[2021-02-27] MEDS: lactobacillus rhamnosus 10,000 MMU CELLS/CAPSULE PO SCH ×2 (09:46→19:04)
[2021-02-27 09:50] LABS: ANISOCYTOSIS 2+; PLATELET ESTIMATE NORMAL
[2021-02-27] MEDS: Potassium Cl inj 20 MEQ in dextrose 5%-water 1,000 ML IV SCH ×4 (09:56→22:34)
[2021-02-27] MEDS ORDERED: VANCOMYCIN LEVEL IV ONE (12:30)
[2021-02-27] MEDS: VANCOmycin 1250MG/NS 250ml Bag 250 ML IV SCH (13:27)
--- NOTE | 2021-02-27 14:50 | NUR ---
F/u 02/27: Pt advanced to MM5/CCHO/thin diet per OIL BOILER recs this AM PO 50% prior pureed dinner last night w/ 90% breakfast and lunch today per RN. Pt more A/O per RN today. Pt seen by RD for written/verbal high protein ed w/ RD contact information provided. Pt is agreeable to raf shake TIDWM for wound healing needs post-op; MD notified. Receiving KCl/D5 at 100ml/hr providing additional 408 kcals/day though pt has only eaten 50% of four meals in the past 15 days. LBM 02/27. Will continue to monitor for additional protein/kcal needs this admit. Recommendations: 1) Continue carb controlled/MM5/thin diet per OIL BOILER recs 2) Encourage PO intake and assist with meals given left arm amputation and prior poor PO intake 3) Raf shake TIDWM for wound healing; pending MD verification in EMR 4) IF PO begins to regress given prior 15 days poor PO hx consider EN to meet needs. IF TF: continuous Vital High Protein with goal rate of 70 mL/hr 5) Routine bowel care 6) Weekly scaled weights Addendum: 02/27/21 at [address] Amended: Links added.
[2021-02-27 18:00] VITALS: BP 148/68
--- NOTE | 2021-02-27 18:15 | NUR ---
Patient in room PCU 3017. I have received report from Lukas SUBRAMANIAN and had the opportunity to ask questions and assume patient care.
[2021-02-27] MEDS: diphenhydrAMINE 25mg capsule PO PRN (18:35)
[2021-02-27] MEDS: LORazepam 0.5 MG tablet PO PRN (18:35)
[2021-02-27] MEDS: morphine 2 MG/ML inj. syringe IV PRN (19:04)
--- NOTE | 2021-02-27 19:30 | NUR ---
Pt very agitated. Throwing pillows, cups, blankets, yelling profanities, refusing medications. Gave pt Benadryl and PO ativan at 1830. Pt still agitated. Will administer IM Haldol.
[2021-02-27] MEDS: haloperidol lactate 5mg/ml inj IM PRN (19:45)
[2021-02-27] MEDS: insulin glargine (Lantus) pen - multi-dose SQ SCH (21:00)
[2021-02-27] MEDS: amitriptyline 10mg tablet PO SCH (21:00)
[2021-02-27] MEDS: bisacodyl 10mg suppository rectal RC SCH (21:00)
--- NOTE | 2021-02-27 21:00 | NUR ---
pt declined blood glucose assessment
[2021-02-28] MEDS: VANCOmycin 1250MG/NS 250ml Bag 250 ML IV SCH ×2 (00:18→14:27)
[2021-02-28] MEDS: ringers solution, lacted 1,000 ML IV SCH (00:40)
[2021-02-28] MEDS: morphine 2 MG/ML inj. syringe IV PRN (04:16)
[2021-02-28] MEDS: LORazepam 0.5 MG tablet PO PRN ×3 (04:38→14:27)
[2021-02-28] MEDS: diphenhydrAMINE 25mg capsule PO PRN (04:38)
[2021-02-28] MEDS: Potassium Cl inj 20 MEQ in dextrose 5%-water 1,000 ML IV SCH ×2 (04:38→17:17)
[2021-02-28 06:00] VITALS: BP 132/57
--- NOTE | 2021-02-28 07:02 | NUR ---
Patient in room PCU 3017. I have received report from Solomon SUBRAMANIAN and had the opportunity to ask questions and assume patient care.
[2021-02-28] MEDS: pantoprazole 40mg Tablet.DR PO SCH (07:56)
[2021-02-28] MEDS: gabapentin 300mg capsule PO SCH (07:56)
[2021-02-28] MEDS: nystatin 500,000 unit/5ML UD oral suspension PO SCH ×3 (07:56→20:09)
[2021-02-28] MEDS: heparin, porcine 5000 units/ml vial SQ SCH ×2 (07:56→20:10)
[2021-02-28] MEDS: lactobacillus rhamnosus 10,000 MMU CELLS/CAPSULE PO SCH ×2 (07:56→20:11)
[2021-02-28] MEDS: nystatin 15 GM powder TP SCH ×3 (08:00→20:09)
[2021-02-28] MEDS: K and/or MAG REPLACEMENT MC SCH ×4 (08:00→20:00)
[2021-02-28 09:19] LABS: BASOPHILS # (AUTO) 0.1 X10'3 (0-0.2); BASOPHILS % (AUTO) 0.8 % (0-1); EOSINOPHILS # (AUTO) 0.1 X10'3 (0-0.9); EOSINOPHILS % (AUTO) 1.4 % (0-6); HEMATOCRIT 28.9 % (35.0-45.0); HEMOGLOBIN 9.8 g/dl (12.0-16.0); LYMPHOCYTES # (AUTO) 1.6 X10'3 (1.1-4.8); LYMPHOCYTES % (AUTO) 21.2 % (21-51); MEAN CORPUSCULAR HEMOGLOBIN 28.4 PG (27.0-31.0); MEAN CORPUSCULAR VOLUME 83.7 FL (78-98); MEAN PLATELET VOLUME 7.7 FL (7.4-10.4); MONOCYTES # (AUTO) 0.7 X10'3 (0-0.9); MONOCYTES % (AUTO) 9.6 % (2-12); PLATELET COUNT 410 X10'3 (140-440); RED BLOOD COUNT 3.45 X10'6 (4.20-5.60); WHITE BLOOD COUNT 7.4 X10'3 (4.5-11.0)
[2021-02-28 09:29] LABS: ALANINE AMINOTRANSFERASE 18 U/L (12-78); ALBUMIN 1.7 G/DL (3.4-5.0); ALBUMIN/GLOBULIN RATIO 0.4 (1.1-1.5); ALKALINE PHOSPHATASE 133 IU/L (46-116); ANION GAP 10 (8-16); ASPARTATE AMINO TRANSFERASE 21 U/L (10-37); BILIRUBIN,TOTAL 0.3 MG/DL (0.1-1.0); BLOOD UREA NITROGEN 6 MG/DL (7-18); BUN/CREATININE RATIO 6.1 (6.6-38.0); CALCIUM 7.5 MG/DL (8.5-10.1); CHLORIDE 103 MMOL/L (99-107); CREATININE 0.98 MG/DL (0.40-0.90); GLUCOSE 167 MG/DL (70-104); POTASSIUM 4.4 MMOL/L (3.5-5.1); SODIUM 136 MMOL/L (135-145); TOTAL CARBON DIOXIDE 23.2 MMOL/L (24-32); TOTAL PROTEIN 6.2 G/DL (6.4-8.2); eGFR 56 ML/MIN
[2021-02-28] MEDS: insulin Lispro (HumaLOG) vial - multi-dose SQ SCH ×2 (10:02→20:19)
[2021-02-28 10:04] LABS: ANISOCYTOSIS 2+; PLATELET ESTIMATE NORMAL
[2021-02-28] MEDS: HYDROcodone/acetaminophen 10/325mg tab PO PRN ×3 (10:05→20:11)
[2021-02-28 11:00] VITALS: BP 138/54
[2021-02-28 15:00] VITALS: BP 112/51
--- NOTE | 2021-02-28 15:21 | NUR ---
I received approval from Enio, head of wound care, for an air bed for pt due to coccyx wound. Ireceived a telephone order from Dr. Barnes for the air bed.
[2021-02-28 18:00] VITALS: BP 105/49
--- NOTE | 2021-02-28 18:40 | NUR ---
Patient in room PCU 3017. I have received report from Shy SUBRAMANIAN at bedside and had the opportunity to ask questions and assume patient care.
--- NOTE | 2021-02-28 18:50 | NUR ---
Problems reprioritized. Patient report given, questions answered & plan of care reviewed with Christie SUBRAMANIAN.
[2021-02-28] MEDS ORDERED: oxyCODONE SR 10mg (sust. release) tab PO SCH (20:00)
[2021-02-28] MEDS: bisacodyl 10mg suppository rectal RC SCH (20:11)
[2021-02-28] MEDS: amitriptyline 10mg tablet PO SCH (20:11)
[2021-02-28] MEDS: insulin glargine (Lantus) pen - multi-dose SQ SCH (21:00)
[2021-02-28 22:00] VITALS: BP 98/49
[2021-03-01] MEDS: diphenhydrAMINE 25mg capsule PO PRN ×2 (01:07→20:25)
[2021-03-01 02:00] VITALS: BP 136/70
[2021-03-01] MEDS: LORazepam 0.5 MG tablet PO PRN ×4 (02:27→18:47)
[2021-03-01] MEDS: Potassium Cl inj 20 MEQ in dextrose 5%-water 1,000 ML IV SCH ×2 (03:21→13:30)
[2021-03-01 06:00] VITALS: BP 117/62
--- NOTE | 2021-03-01 06:11 | NUR ---
Patient in room PCU 3017. I have received report from Christie and had the opportunity to ask questions and assume patient care.
--- NOTE | 2021-03-01 06:32 | NUR ---
Problems reprioritized. Patient report given, questions answered & plan of care reviewed with Luis SUBRAMANIAN at bedside.
[2021-03-01] MEDS: nystatin 500,000 unit/5ML UD oral suspension PO SCH ×3 (07:31→20:26)
[2021-03-01] MEDS: HYDROcodone/acetaminophen 10/325mg tab PO PRN ×3 (07:31→18:47)
[2021-03-01] MEDS: gabapentin 300mg capsule PO SCH ×3 (07:32→20:25)
[2021-03-01] MEDS: nystatin 15 GM powder TP SCH ×3 (07:32→20:23)
[2021-03-01] MEDS: lactobacillus rhamnosus 10,000 MMU CELLS/CAPSULE PO SCH ×2 (07:32→20:24)
[2021-03-01] MEDS: pantoprazole 40mg Tablet.DR PO SCH (07:32)
[2021-03-01] MEDS: heparin, porcine 5000 units/ml vial SQ SCH ×2 (08:00→20:24)
[2021-03-01] MEDS: K and/or MAG REPLACEMENT MC SCH ×4 (08:00→20:00)
[2021-03-01 09:07] LABS: BASOPHILS # (AUTO) 0.1 X10'3 (0-0.2); BASOPHILS % (AUTO) 0.9 % (0-1); EOSINOPHILS # (AUTO) 0.1 X10'3 (0-0.9); EOSINOPHILS % (AUTO) 1.9 % (0-6); HEMATOCRIT 31.8 % (35.0-45.0); HEMOGLOBIN 10.4 g/dl (12.0-16.0); LYMPHOCYTES # (AUTO) 1.5 X10'3 (1.1-4.8); LYMPHOCYTES % (AUTO) 19.7 % (21-51); MEAN CORPUSCULAR HEMOGLOBIN 27.5 PG (27.0-31.0); MEAN CORPUSCULAR HGB CONC 32.6 g/dL (33.0-36.5); MEAN CORPUSCULAR VOLUME 84.3 FL (78-98); MEAN PLATELET VOLUME 7.5 FL (7.4-10.4); MONOCYTES # (AUTO) 0.8 X10'3 (0-0.9); MONOCYTES % (AUTO) 10.6 % (2-12); NEUTROPHILS # (AUTO) 5.1 X10'3 (1.8-7.7); NEUTROPHILS % (AUTO) 66.9 % (42-75); PLATELET COUNT 461 X10'3 (140-440); RED BLOOD COUNT 3.78 X10'6 (4.20-5.60); RED CELL DISTRIBUTION WIDTH 18.6 % (11.5-14.5); WHITE BLOOD COUNT 7.7 X10'3 (4.5-11.0)
[2021-03-01 09:35] LABS: ALANINE AMINOTRANSFERASE 23 U/L (12-78); ALBUMIN 1.9 G/DL (3.4-5.0); ALBUMIN/GLOBULIN RATIO 0.4 (1.1-1.5); ALKALINE PHOSPHATASE 151 IU/L (46-116); ANION GAP 8 (8-16); ASPARTATE AMINO TRANSFERASE 26 U/L (10-37); BILIRUBIN,TOTAL 0.3 MG/DL (0.1-1.0); BLOOD UREA NITROGEN 6 MG/DL (7-18); BUN/CREATININE RATIO 6.3 (6.6-38.0); CALCIUM 8.2 MG/DL (8.5-10.1); CHLORIDE 101 MMOL/L (99-107); CREATININE 0.96 MG/DL (0.40-0.90); GLUCOSE 157 MG/DL (70-104); POTASSIUM 4.6 MMOL/L (3.5-5.1); SODIUM 135 MMOL/L (135-145); eGFR 58 ML/MIN
--- NOTE | 2021-03-01 10:43 | NUR ---
Pt agitated that she is not receiving enough high sugar foods. Pt given 2 jellos this morning and is asking for yogurt at this time. Pt given 1 yogurt after being educated about blood sugar control. Pt verbalized understanding and is ok with the risks.
[2021-03-01 11:00] VITALS: BP 105/53
[2021-03-01] MEDS: VANCOmycin 1250MG/NS 250ml Bag 250 ML IV SCH (13:30)
[2021-03-01] MEDS: insulin Lispro (HumaLOG) vial - multi-dose SQ SCH (14:51)
[2021-03-01 15:00] VITALS: BP 112/61
[2021-03-01 18:00] VITALS: BP 117/60
--- NOTE | 2021-03-01 18:20 | NUR ---
Patient in room PCU 3017. I have received report from Luis SUBRAMANIAN at bedside and had the opportunity to ask questions and assume patient care.
--- NOTE | 2021-03-01 19:38 | NUR ---
Problems reprioritized. Patient report given, questions answered & plan of care reviewed with applied biology professor nurse.
[2021-03-01] MEDS: haloperidol lactate 5mg/ml inj IM PRN (20:23)
[2021-03-01] MEDS: amitriptyline 10mg tablet PO SCH (20:24)
[2021-03-01] MEDS: bisacodyl 10mg suppository rectal RC SCH (20:26)
[2021-03-01] MEDS: insulin glargine (Lantus) pen - multi-dose SQ SCH (21:00)
[2021-03-01 22:00] VITALS: BP 109/69
--- NOTE | 2021-03-01 23:38 | NUR ---
Patient refused 3 units of Humalog to cover for dinner.
[2021-03-02] MEDS: Potassium Cl inj 20 MEQ in dextrose 5%-water 1,000 ML IV SCH ×3 (00:23→22:53)
[2021-03-02 02:00] VITALS: BP 116/55
[2021-03-02 06:00] VITALS: BP 113/50
--- NOTE | 2021-03-02 06:20 | NUR ---
Problems reprioritized. Patient report given, questions answered & plan of care reviewed with Luis SUBRAMANIAN at bedside.
--- NOTE | 2021-03-02 06:46 | NUR ---
Patient in room PCU 3017. I have received report from Christie and had the opportunity to ask questions and assume patient care.
[2021-03-02] MEDS: heparin, porcine 5000 units/ml vial SQ SCH ×2 (07:53→19:09)
[2021-03-02] MEDS: LORazepam 0.5 MG tablet PO PRN ×2 (07:54→19:10)
[2021-03-02] MEDS: gabapentin 300mg capsule PO SCH ×2 (07:54→19:10)
[2021-03-02] MEDS: pantoprazole 40mg Tablet.DR PO SCH (07:54)
[2021-03-02] MEDS: HYDROcodone/acetaminophen 10/325mg tab PO PRN ×3 (07:54→22:54)
[2021-03-02] MEDS: lactobacillus rhamnosus 10,000 MMU CELLS/CAPSULE PO SCH ×2 (07:54→19:10)
[2021-03-02] MEDS: nystatin 15 GM powder TP SCH ×3 (07:54→22:53)
[2021-03-02] MEDS: nystatin 500,000 unit/5ML UD oral suspension PO SCH ×3 (07:56→22:52)
[2021-03-02] MEDS: K and/or MAG REPLACEMENT MC SCH ×4 (08:00→18:56)
[2021-03-02] MEDS: insulin Lispro (HumaLOG) vial - multi-dose SQ SCH ×3 (09:39→19:12)
[2021-03-02 11:00] VITALS: BP 108/55
--- NOTE | 2021-03-02 11:55 | NUR ---
F/u 03/02: Pt eating moderately well on MM5/CCHO diet, avg 64% x 8 meals though not meeting protein needs. Raf shake TID unverified in EMR, discussed w/ RN that pt can benefit from receiving Raf shakes, states they will notify MD of order. Pt has been requesting ice cream for desserts, will honor preferences. Receiving KCl/D5 at 100ml/hr providing additional 408 kcals/day. LBM 02/27. Will continue to monitor for additional protein/kcal needs this admit. Recommendations: 1) Continue carb controlled/MM5/thin diet per TALEND DEVELOPER recs, ice cream w/ dinners 2) Encourage PO intake and assist with meals given left arm amputation and prior poor PO intake 3) Raf mendenhall TIDWM for wound healing; pending MD verification in EMR 4) IF PO begins to regress given prior 15 days poor PO hx consider EN to meet needs. IF TF: continuous Vital High Protein with goal rate of 70 mL/hr 5) Routine bowel care 6) Weekly scaled weights Addendum: 03/02/21 at [address] Amended: Links added.
[2021-03-02] MEDS ORDERED: VANCOMYCIN LEVEL IV ONE (12:30)
[2021-03-02] MEDS: VANCOmycin 1250MG/NS 250ml Bag 250 ML IV SCH (13:00)
[2021-03-02 15:00] VITALS: BP 104/56
[2021-03-02 18:00] VITALS: BP 101/62
--- NOTE | 2021-03-02 18:26 | NUR ---
Problems reprioritized. Patient report given, questions answered & plan of care reviewed with Yuli.
--- NOTE | 2021-03-02 18:40 | NUR ---
Patient in room PCU 3017. I have received report from Luis SUBRAMANIAN and had the opportunity to ask questions and assume patient care.
[2021-03-02] MEDS: bisacodyl 10mg suppository rectal RC SCH (21:00)
[2021-03-02 22:00] VITALS: BP 107/73
[2021-03-02] MEDS: diphenhydrAMINE 25mg capsule PO PRN (22:52)
[2021-03-02] MEDS: amitriptyline 10mg tablet PO SCH (22:53)
[2021-03-02] MEDS: insulin glargine (Lantus) pen - multi-dose SQ SCH (22:58)
[2021-03-03 02:00] VITALS: BP 120/61
[2021-03-03] MEDS: HYDROcodone/acetaminophen 10/325mg tab PO PRN ×3 (04:30→23:33)
--- NOTE | 2021-03-03 06:22 | NUR ---
Problems reprioritized. Patient report given, questions answered & plan of care reviewed with Ellyn SUBRAMANIAN.
--- NOTE | 2021-03-03 06:49 | NUR ---
Patient in room PCU 3017. I have received report from Felecia SUBRAMANIAN and had the opportunity to ask questions and assume patient care. Pt alert to voice, linens changed and pt repositioned in the bed. safety education completed, deep breathing encouraged. SRx2, BLL, CL within reach, side table within reach. no s/sx acute distress.
[2021-03-03 07:00] VITALS: BP 109/47
[2021-03-03 07:22] LABS: BASOPHILS % (AUTO) 0.6 % (0-1); EOSINOPHILS # (AUTO) 0.2 X10'3 (0-0.9); EOSINOPHILS % (AUTO) 3.8 % (0-6); HEMATOCRIT 29.8 % (35.0-45.0); HEMOGLOBIN 10.1 g/dl (12.0-16.0); LYMPHOCYTES # (AUTO) 1.1 X10'3 (1.1-4.8); MEAN CORPUSCULAR HGB CONC 33.8 g/dL (33.0-36.5); MEAN CORPUSCULAR VOLUME 82.8 FL (78-98); MEAN PLATELET VOLUME 7.2 FL (7.4-10.4); MONOCYTES # (AUTO) 0.5 X10'3 (0-0.9); MONOCYTES % (AUTO) 8.8 % (2-12); NEUTROPHILS % (AUTO) 67.8 % (42-75); PLATELET COUNT 408 X10'3 (140-440); RED CELL DISTRIBUTION WIDTH 18.3 % (11.5-14.5); WHITE BLOOD COUNT 5.9 X10'3 (4.5-11.0)
[2021-03-03 07:53] LABS: ALANINE AMINOTRANSFERASE 24 U/L (12-78); ALBUMIN 1.8 G/DL (3.4-5.0); ALBUMIN/GLOBULIN RATIO 0.4 (1.1-1.5); ALKALINE PHOSPHATASE 137 IU/L (46-116); ANION GAP 9 (8-16); ASPARTATE AMINO TRANSFERASE 28 U/L (10-37); BILIRUBIN,TOTAL 0.3 MG/DL (0.1-1.0); BLOOD UREA NITROGEN 9 MG/DL (7-18); BUN/CREATININE RATIO 9.2 (6.6-38.0); CALCIUM 8.2 MG/DL (8.5-10.1); CHLORIDE 102 MMOL/L (99-107); CREATININE 0.98 MG/DL (0.40-0.90); GLUCOSE 112 MG/DL (70-104); POTASSIUM 4.7 MMOL/L (3.5-5.1); SODIUM 135 MMOL/L (135-145); TOTAL CARBON DIOXIDE 23.7 MMOL/L (24-32); TOTAL PROTEIN 6.5 G/DL (6.4-8.2); eGFR 56 ML/MIN
[2021-03-03] MEDS: K and/or MAG REPLACEMENT MC SCH ×4 (08:00→20:00)
[2021-03-03] MEDS: Potassium Cl inj 20 MEQ in dextrose 5%-water 1,000 ML IV SCH ×2 (09:05→20:16)
[2021-03-03] MEDS: lactobacillus rhamnosus 10,000 MMU CELLS/CAPSULE PO SCH ×2 (09:06→19:25)
[2021-03-03] MEDS: gabapentin 300mg capsule PO SCH ×2 (09:06→19:25)
[2021-03-03] MEDS: nystatin 500,000 unit/5ML UD oral suspension PO SCH ×3 (09:06→20:18)
[2021-03-03] MEDS: heparin, porcine 5000 units/ml vial SQ SCH ×2 (09:07→19:27)
[2021-03-03] MEDS: nystatin 15 GM powder TP SCH ×3 (09:07→22:47)
[2021-03-03] MEDS: pantoprazole 40mg Tablet.DR PO SCH (09:07)
[2021-03-03] MEDS: insulin Lispro (HumaLOG) vial - multi-dose SQ SCH ×3 (09:11→19:30)
[2021-03-03 11:00] VITALS: BP 111/43
[2021-03-03] MEDS: JUVEN Shake w/Arg/Glut/Ca2+Bmb (Juven 19.3gm) pkt 240ml PO SCH ×2 (13:00→19:00)
[2021-03-03] MEDS: hydrOXYzine 25 MG tablet PO PRN (13:03)
[2021-03-03] MEDS: VANCOmycin 1250MG/NS 250ml Bag 250 ML IV SCH (13:04)
[2021-03-03] MEDS: LORazepam 0.5 MG tablet PO PRN (14:13)
[2021-03-03 15:00] VITALS: BP 119/45
--- NOTE | 2021-03-03 18:10 | NUR ---
Problems reprioritized. Patient report given, questions answered & plan of care reviewed with Lissy RN. pt high fowlers in bed eating dinner. no s/sx acute distress. safety measures maintained.
[2021-03-03 19:00] VITALS: BP 108/72
[2021-03-03] MEDS: diphenhydrAMINE 25mg capsule PO PRN (19:26)
[2021-03-03] MEDS: amitriptyline 10mg tablet PO SCH (20:16)
[2021-03-03] MEDS: morphine 2 MG/ML inj. syringe IV PRN (20:16)
[2021-03-03] MEDS: bisacodyl 10mg suppository rectal RC SCH (20:17)
[2021-03-03] MEDS: insulin glargine (Lantus) pen - multi-dose SQ SCH (22:33)
[2021-03-03 23:30] VITALS: BP 117/57
[2021-03-04] MEDS: diphenhydrAMINE 25mg capsule PO PRN ×3 (01:24→22:31)
[2021-03-04 04:00] VITALS: BP 97/48
[2021-03-04] MEDS: Potassium Cl inj 20 MEQ in dextrose 5%-water 1,000 ML IV SCH ×3 (06:21→22:30)
[2021-03-04 06:54] VITALS: BP 113/42
[2021-03-04 07:07] LABS: BASOPHILS % (AUTO) 0.5 % (0-1); EOSINOPHILS # (AUTO) 0.2 X10'3 (0-0.9); EOSINOPHILS % (AUTO) 3.3 % (0-6); HEMATOCRIT 31.5 % (35.0-45.0); HEMOGLOBIN 10.3 g/dl (12.0-16.0); LYMPHOCYTES # (AUTO) 1.9 X10'3 (1.1-4.8); LYMPHOCYTES % (AUTO) 28.3 % (21-51); MEAN CORPUSCULAR HEMOGLOBIN 27.4 PG (27.0-31.0); MEAN CORPUSCULAR HGB CONC 32.6 g/dL (33.0-36.5); MEAN CORPUSCULAR VOLUME 84.2 FL (78-98); MEAN PLATELET VOLUME 7.1 FL (7.4-10.4); MONOCYTES # (AUTO) 0.8 X10'3 (0-0.9); NEUTROPHILS # (AUTO) 3.8 X10'3 (1.8-7.7); NEUTROPHILS % (AUTO) 55.9 % (42-75); PLATELET COUNT 420 X10'3 (140-440); RED BLOOD COUNT 3.74 X10'6 (4.20-5.60); RED CELL DISTRIBUTION WIDTH 18.2 % (11.5-14.5); WHITE BLOOD COUNT 6.8 X10'3 (4.5-11.0)
[2021-03-04 07:29] LABS: ALANINE AMINOTRANSFERASE 29 U/L (12-78); ALBUMIN 1.9 G/DL (3.4-5.0); ALBUMIN/GLOBULIN RATIO 0.4 (1.1-1.5); ALKALINE PHOSPHATASE 138 IU/L (46-116); ANION GAP 8 (8-16); ASPARTATE AMINO TRANSFERASE 42 U/L (10-37); BILIRUBIN,TOTAL 0.2 MG/DL (0.1-1.0); BLOOD UREA NITROGEN 12 MG/DL (7-18); BUN/CREATININE RATIO 11.2 (6.6-38.0); CALCIUM 8.1 MG/DL (8.5-10.1); CHLORIDE 101 MMOL/L (99-107); CREATININE 1.07 MG/DL (0.40-0.90); GLUCOSE 119 MG/DL (70-104); POTASSIUM 4.7 MMOL/L (3.5-5.1); SODIUM 134 MMOL/L (135-145); TOTAL CARBON DIOXIDE 25.1 MMOL/L (24-32); TOTAL PROTEIN 6.5 G/DL (6.4-8.2); eGFR 51 ML/MIN
[2021-03-04] MEDS: K and/or MAG REPLACEMENT MC SCH ×4 (08:00→20:00)
[2021-03-04] MEDS: JUVEN Shake w/Arg/Glut/Ca2+Bmb (Juven 19.3gm) pkt 240ml PO SCH ×3 (08:00→18:00)
[2021-03-04] MEDS: lactobacillus rhamnosus 10,000 MMU CELLS/CAPSULE PO SCH ×2 (08:03→22:31)
[2021-03-04] MEDS: gabapentin 300mg capsule PO SCH ×2 (08:03→22:31)
[2021-03-04] MEDS: pantoprazole 40mg Tablet.DR PO SCH (08:03)
[2021-03-04] MEDS: heparin, porcine 5000 units/ml vial SQ SCH ×2 (08:04→22:32)
[2021-03-04] MEDS: nystatin 15 GM powder TP SCH ×3 (08:04→22:31)
[2021-03-04] MEDS: nystatin 500,000 unit/5ML UD oral suspension PO SCH ×3 (08:25→22:39)
[2021-03-04 11:00] VITALS: BP 126/47
[2021-03-04] MEDS: haloperidol lactate 5mg/ml inj IM PRN (14:17)
--- NOTE | 2021-03-04 14:23 | NUR ---
pt was extemely agitated, yelling, swearing and threatening staff. Primary nurse Pat was unable to attend directly to pt at that time and asked for asssitance in giving pt haldol IM. med was given and pt was receptive to taking the medication oddly enough.
[2021-03-04 15:00] VITALS: BP 141/54
--- NOTE | 2021-03-04 18:03 | NUR ---
CALL PLACED TO PHARMACY TO RETIME VANCO AND REVIEW LAB VALUES .VANCO STILL NOT AVAILABLE. Addendum: 03/04/21 at 1813 by Guerline Evans RN Amended: Links added.
--- NOTE | 2021-03-04 18:50 | NUR ---
Patient in room U 3017. I have received report from MORIS Cunha and had the opportunity to ask questions and assume patient care. Addendum: 03/04/21 at 1919 by Amy Basilio RN Amended: Links added.
[2021-03-04] MEDS: VANCOmycin 1250MG/NS 250ml Bag 250 ML IV SCH (19:05)
--- NOTE | 2021-03-04 19:15 | NUR ---
Refusing any care at this time, calm quiet, ate very little dinner left at bedside. 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 Pt refuses to have any dressing or stocking on left or arm Addendum: 03/04/21 at 1916 by Amy Basilio RN Amended: Links added.
--- NOTE | 2021-03-04 20:00 | NUR ---
Refuses all medications or interventions at this time. Addendum: 03/05/21 at 0129 by Amy Basilio RN Amended: Links added.
[2021-03-04] MEDS: amitriptyline 10mg tablet PO SCH (22:31)
[2021-03-04] MEDS: bisacodyl 10mg suppository rectal RC SCH (22:32)
[2021-03-04] MEDS: insulin glargine (Lantus) pen - multi-dose SQ SCH (22:37)
[2021-03-04 23:00] VITALS: BP 107/53
[2021-03-04] MEDS: LORazepam 0.5 MG tablet PO PRN (23:08)
[2021-03-04] MEDS: HYDROcodone/acetaminophen 10/325mg tab PO PRN (23:09)
--- NOTE | 2021-03-05 02:00 | NUR ---
Refused vs Addendum: 03/05/21 at 0246 by Amy Basilio RN Amended: Links added.
[2021-03-05] MEDS: Potassium Cl inj 20 MEQ in dextrose 5%-water 1,000 ML IV SCH ×2 (02:11→22:50)
[2021-03-05] MEDS: HYDROcodone/acetaminophen 10/325mg tab PO PRN ×4 (05:00→22:28)
[2021-03-05] MEDS: LORazepam 0.5 MG tablet PO PRN (05:00)
--- NOTE | 2021-03-05 06:11 | NUR ---
Problems reprioritized. Patient report given, questions answered & plan of care reviewed with MORIS Villegas. Addendum: 03/05/21 at 0611 by Amy Basilio RN Amended: Links added.
--- NOTE | 2021-03-05 06:21 | NUR ---
Patient in room PCU 3017. I have received report from Debra SUBRAMANIAN and had the opportunity to ask questions and assume patient care.
[2021-03-05 07:00] VITALS: BP 102/52
[2021-03-05 07:00] LABS: BASOPHILS # (AUTO) 0.1 X10'3 (0-0.2); BASOPHILS % (AUTO) 0.8 % (0-1); EOSINOPHILS # (AUTO) 0.2 X10'3 (0-0.9); EOSINOPHILS % (AUTO) 3.8 % (0-6); HEMATOCRIT 31.6 % (35.0-45.0); HEMOGLOBIN 10.4 g/dl (12.0-16.0); LYMPHOCYTES # (AUTO) 1.8 X10'3 (1.1-4.8); LYMPHOCYTES % (AUTO) 28.1 % (21-51); MEAN CORPUSCULAR HEMOGLOBIN 27.4 PG (27.0-31.0); MEAN PLATELET VOLUME 6.8 FL (7.4-10.4); MONOCYTES # (AUTO) 0.7 X10'3 (0-0.9); MONOCYTES % (AUTO) 10.3 % (2-12); NEUTROPHILS # (AUTO) 3.6 X10'3 (1.8-7.7); PLATELET COUNT 414 X10'3 (140-440); RED CELL DISTRIBUTION WIDTH 17.9 % (11.5-14.5); WHITE BLOOD COUNT 6.4 X10'3 (4.5-11.0)
[2021-03-05 07:06] LABS: ALANINE AMINOTRANSFERASE 29 U/L (12-78); ALBUMIN 1.9 G/DL (3.4-5.0); ALBUMIN/GLOBULIN RATIO 0.4 (1.1-1.5); ALKALINE PHOSPHATASE 142 IU/L (46-116); ANION GAP 7 (8-16); ASPARTATE AMINO TRANSFERASE 35 U/L (10-37); BILIRUBIN,TOTAL 0.2 MG/DL (0.1-1.0); BLOOD UREA NITROGEN 12 MG/DL (7-18); CALCIUM 8.1 MG/DL (8.5-10.1); CHLORIDE 101 MMOL/L (99-107); CREATININE 0.92 MG/DL (0.40-0.90); GLUCOSE 137 MG/DL (70-104); POTASSIUM 4.7 MMOL/L (3.5-5.1); SODIUM 133 MMOL/L (135-145); TOTAL CARBON DIOXIDE 25.5 MMOL/L (24-32); TOTAL PROTEIN 6.8 G/DL (6.4-8.2); eGFR 61 ML/MIN
[2021-03-05] MEDS: K and/or MAG REPLACEMENT MC SCH ×4 (08:00→20:00)
[2021-03-05] MEDS: JUVEN Shake w/Arg/Glut/Ca2+Bmb (Juven 19.3gm) pkt 240ml PO SCH ×3 (08:00→18:00)
[2021-03-05] MEDS: lactobacillus rhamnosus 10,000 MMU CELLS/CAPSULE PO SCH ×2 (08:18→22:24)
[2021-03-05] MEDS: nystatin 15 GM powder TP SCH ×3 (08:19→21:00)
[2021-03-05] MEDS: pantoprazole 40mg Tablet.DR PO SCH (08:19)
[2021-03-05] MEDS: gabapentin 300mg capsule PO SCH ×2 (08:19→22:24)
[2021-03-05] MEDS: heparin, porcine 5000 units/ml vial SQ SCH ×2 (08:19→22:25)
[2021-03-05] MEDS: nystatin 500,000 unit/5ML UD oral suspension PO SCH ×3 (08:19→22:25)
[2021-03-05] MEDS: insulin Lispro (HumaLOG) vial - multi-dose SQ SCH ×3 (08:27→19:12)
[2021-03-05 11:00] VITALS: BP 103/49
--- NOTE | 2021-03-05 11:23 | NUR ---
F/u 03/05: Pt eating moderately well on MM5/CCHO diet, avg 61% x 8 meals though not meeting protein needs. Raf shake TID verified in EMR, though pt documented to not be receiving it. Discussed w/ dietary to send Shakes per rx. Receiving KCl/D5 at 100ml/hr providing additional 408 kcals/day. Pt noted to be refusing care at times. LBM 03/03. Will continue to monitor for additional protein/kcal needs this admit. Recommendations: 1) Continue carb controlled/MM5/thin diet per CALENDERER recs, ice cream w/ dinners 2) Encourage PO intake and assist with meals given left arm amputation and prior poor PO intake 3) Raf shake TIDWM for wound healing 4) IF PO begins to regress given prior 15 days poor PO hx consider EN to meet needs. IF TF: continuous Vital High Protein with goal rate of 70 mL/hr 5) Routine bowel care 6) Weekly scaled weights Addendum: 03/05/21 at [address] Amended: Links added.
[2021-03-05] MEDS: VANCOmycin 1250MG/NS 250ml Bag 250 ML IV SCH (13:49)
[2021-03-05 15:00] VITALS: BP 93/54
--- NOTE | 2021-03-05 18:42 | NUR ---
Problems reprioritized. Patient report given, questions answered & plan of care reviewed with Jumana SUBRAMANIAN.
[2021-03-05] MEDS: diphenhydrAMINE 25mg capsule PO PRN (18:50)
[2021-03-05] MEDS: bisacodyl 10mg suppository rectal RC SCH (21:00)
[2021-03-05] MEDS: haloperidol lactate 5mg/ml inj IM PRN (21:54)
[2021-03-05] MEDS: amitriptyline 10mg tablet PO SCH (22:25)
[2021-03-05] MEDS: insulin glargine (Lantus) pen - multi-dose SQ SCH (22:55)
[2021-03-05 23:00] VITALS: BP 102/50
[2021-03-06 03:00] VITALS: BP 97/53
--- NOTE | 2021-03-06 06:30 | NUR ---
Patient in room PCU 3017. I have received report from Jumana SUBRAMANIAN and had the opportunity to ask questions and assume patient care. Patient up to chair while techs clean bed. Patient in no acute distress.
[2021-03-06 06:48] LABS: BASOPHILS # (AUTO) 0.1 X10'3 (0-0.2); EOSINOPHILS # (AUTO) 0.3 X10'3 (0-0.9); EOSINOPHILS % (AUTO) 3.8 % (0-6); HEMATOCRIT 34.9 % (35.0-45.0); HEMOGLOBIN 11.4 g/dl (12.0-16.0); LYMPHOCYTES # (AUTO) 2.3 X10'3 (1.1-4.8); LYMPHOCYTES % (AUTO) 29.1 % (21-51); MEAN CORPUSCULAR HEMOGLOBIN 26.9 PG (27.0-31.0); MEAN CORPUSCULAR HGB CONC 32.7 g/dL (33.0-36.5); MEAN CORPUSCULAR VOLUME 82.3 FL (78-98); MEAN PLATELET VOLUME 6.9 FL (7.4-10.4); MONOCYTES # (AUTO) 0.7 X10'3 (0-0.9); MONOCYTES % (AUTO) 8.4 % (2-12); NEUTROPHILS # (AUTO) 4.5 X10'3 (1.8-7.7); NEUTROPHILS % (AUTO) 57.7 % (42-75); PLATELET COUNT 442 X10'3 (140-440); RED BLOOD COUNT 4.25 X10'6 (4.20-5.60); RED CELL DISTRIBUTION WIDTH 18.8 % (11.5-14.5); WHITE BLOOD COUNT 7.8 X10'3 (4.5-11.0)
[2021-03-06 07:00] VITALS: BP 145/73
[2021-03-06 07:16] LABS: ALANINE AMINOTRANSFERASE 33 U/L (12-78); ALBUMIN 2.1 G/DL (3.4-5.0); ALBUMIN/GLOBULIN RATIO 0.4 (1.1-1.5); ALKALINE PHOSPHATASE 156 IU/L (46-116); ANION GAP 9 (8-16); ASPARTATE AMINO TRANSFERASE 35 U/L (10-37); BILIRUBIN,TOTAL 0.3 MG/DL (0.1-1.0); BLOOD UREA NITROGEN 15 MG/DL (7-18); BUN/CREATININE RATIO 14.3 (6.6-38.0); CALCIUM 8.4 MG/DL (8.5-10.1); CHLORIDE 101 MMOL/L (99-107); CREATININE 1.05 MG/DL (0.40-0.90); GLUCOSE 136 MG/DL (70-104); POTASSIUM 4.8 MMOL/L (3.5-5.1); SODIUM 134 MMOL/L (135-145); TOTAL CARBON DIOXIDE 24.3 MMOL/L (24-32); TOTAL PROTEIN 7.2 G/DL (6.4-8.2); eGFR 52 ML/MIN
[2021-03-06] MEDS: Potassium Cl inj 20 MEQ in dextrose 5%-water 1,000 ML IV SCH ×3 (07:48→21:14)
[2021-03-06] MEDS: K and/or MAG REPLACEMENT MC SCH ×4 (07:49→20:00)
[2021-03-06] MEDS: lactobacillus rhamnosus 10,000 MMU CELLS/CAPSULE PO SCH ×2 (07:50→20:00)
[2021-03-06] MEDS: heparin, porcine 5000 units/ml vial SQ SCH ×2 (07:50→20:00)
[2021-03-06] MEDS: nystatin 500,000 unit/5ML UD oral suspension PO SCH ×3 (07:50→21:00)
[2021-03-06] MEDS: HYDROcodone/acetaminophen 10/325mg tab PO PRN ×3 (07:51→23:38)
[2021-03-06] MEDS: diphenhydrAMINE 25mg capsule PO PRN ×3 (07:51→21:14)
[2021-03-06] MEDS: pantoprazole 40mg Tablet.DR PO SCH (07:51)
[2021-03-06] MEDS: JUVEN Shake w/Arg/Glut/Ca2+Bmb (Juven 19.3gm) pkt 240ml PO SCH ×3 (07:52→18:00)
[2021-03-06] MEDS: nystatin 15 GM powder TP SCH ×3 (07:52→21:00)
[2021-03-06] MEDS: gabapentin 300mg capsule PO SCH ×2 (07:52→21:14)
[2021-03-06] MEDS: insulin Lispro (HumaLOG) vial - multi-dose SQ SCH (08:48)
--- NOTE | 2021-03-06 10:41 | NUR ---
Page Sent promotional table spacer PAGER ID: [phone] MESSAGE: [phone] Monet. Patient called family and she says they are coming to get her . She is leaving AMA. Amira 1909
--- NOTE | 2021-03-06 10:43 | NUR ---
PAGED OUT TO COMPUTER INFORMATION SCIENCE PROFESSOR.
--- NOTE | 2021-03-06 11:08 | NUR ---
Patient broke down after the doctor told her he was not discharging her today. Despite efforts of myself, lithopone charger, and case management making multiple attempts to dissuade patient from leaving [place] she called her family member and asked them to come and get her. I explained to her all of my concerns about her not being able to take care of herself , wound dehiscence, new infection , and the real possibility of her dying because she left the hospital before she is ready. She is not able to transfer, she can't clean, or dress herself, she is incontinent several occasions a day, can barely feed herself and always makes a mess. She is not ready to DC to home. From the state she came in and had to have multiple limbs removed, I don't have any confidence in her support system. It was explained to her when she leaves AMA she is leaving with out any medications including pain relievers and antibiotics. She was advised to keep her wounds clean and dressed to prevent complications. She is constantly undressing her wounds her stating the gauze is too tight. Wound pictures have been taken. Wound care education was given and I'm sure reinforcement is needed. All of patient's belongings are packed and she is ready to go. Line will be pulled before she leaves. Will continue to monitor and reinforce education until patient is picked up.
--- NOTE | 2021-03-06 11:27 | NUR ---
Patient refused 1100 vitals.
--- NOTE | 2021-03-06 11:28 | NUR ---
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 MD aware. Patient advised against leaving . Patient thrashed around in bed a lot this morning . Im not sure if this is from trauma of her moving around a lot or start of infection. It is not warm to touch and patient does not have fever.
--- NOTE | 2021-03-06 12:40 | NUR ---
Patient has decided she is not going to leave AMA. Her plan is to "stay until Saturday and see what happens." Doctor has been notified. I will hook her back up to fluids and place her back on tele if she allows it.
--- NOTE | 2021-03-06 12:40 | NUR ---
Page Sent promotional table spacer PAGER ID: [phone] MESSAGE: [id number] Monet. FYI Patient has decided to kee us with her presence until Saturday. Amira [phone]
[2021-03-06] MEDS: VANCOmycin 1250MG/NS 250ml Bag 250 ML IV SCH (13:01)
[2021-03-06] MEDS: morphine 2 MG/ML inj. syringe IV PRN ×2 (14:28→21:10)
--- NOTE | 2021-03-06 14:44 | NUR ---
Patient not treated with insulin after lunch because tray was gone and ticket not saved. i have no idea what she ate or how many carbs. 1200 blood glucose did not warrant treated per protocol.
[2021-03-06 15:00] VITALS: BP 115/52
[2021-03-06] MEDS: LORazepam 0.5 MG tablet PO PRN ×2 (15:14→23:38)
--- NOTE | 2021-03-06 15:26 | NUR ---
Patient unwrapped stumps x2 again and will not let me rewrap them. Patient very agitated today .
[2021-03-06 18:00] VITALS: BP 147/83
--- NOTE | 2021-03-06 18:35 | NUR ---
Patient in room PCU 3017. I have received report from MORIS Collier and had the opportunity to ask questions and assume patient care.
--- NOTE | 2021-03-06 18:40 | NUR ---
Problems reprioritized. Patient report given, questions answered & plan of care reviewed with Eric SUBRAMANIAN. Patient highly agitated but in no acute distress.
--- NOTE | 2021-03-06 18:45 | NUR ---
Went in to find patient in her wheelchair, crying, screaming, had broke IV line and pulled IV. IV fluids running onto the floor. Patient making comments such as "the people are rude to me, no one wants to help me, no one will come get me, no one cares what happends to me", etc. Changed linens on bed and assisted patient back to bed. Pt is painful. Administered pain medications and haldol as ordered. No dinner tray in room. Patient crying hysterically and unable to understand answer when asked about dinner.
[2021-03-06] MEDS: haloperidol lactate 5mg/ml inj IM PRN (19:01)
[2021-03-06] MEDS: bisacodyl 10mg suppository rectal RC SCH (21:00)
[2021-03-06] MEDS: hydrOXYzine 25 MG tablet PO PRN (21:14)
[2021-03-06] MEDS: amitriptyline 10mg tablet PO SCH (21:15)
[2021-03-06] MEDS: insulin glargine (Lantus) pen - multi-dose SQ SCH (21:21)
[2021-03-06 23:53] VITALS: BP 128/67
[2021-03-07 02:30] VITALS: BP 132/51
[2021-03-07 06:00] VITALS: BP 127/59
--- NOTE | 2021-03-07 06:32 | NUR ---
Problems reprioritized. Patient report given, questions answered & plan of care reviewed with MORIS Richardson.
--- NOTE | 2021-03-07 06:49 | NUR ---
Patient in room PCU 3015P. I have received report from MORIS Richards and had the opportunity to ask questions and assume patient care.
[2021-03-07] MEDS: JUVEN Shake w/Arg/Glut/Ca2+Bmb (Juven 19.3gm) pkt 240ml PO SCH ×3 (08:00→18:58)
[2021-03-07] MEDS: K and/or MAG REPLACEMENT MC SCH ×4 (08:00→18:59)
[2021-03-07 09:30] LABS: BASOPHILS # (AUTO) 0.1 X10'3 (0-0.2); BASOPHILS % (AUTO) 0.8 % (0-1); EOSINOPHILS # (AUTO) 0.3 X10'3 (0-0.9); EOSINOPHILS % (AUTO) 3.1 % (0-6); HEMATOCRIT 32.5 % (35.0-45.0); HEMOGLOBIN 10.5 g/dl (12.0-16.0); LYMPHOCYTES # (AUTO) 2.1 X10'3 (1.1-4.8); LYMPHOCYTES % (AUTO) 22.5 % (21-51); MEAN CORPUSCULAR HGB CONC 32.4 g/dL (33.0-36.5); MEAN CORPUSCULAR VOLUME 83.3 FL (78-98); MEAN PLATELET VOLUME 6.6 FL (7.4-10.4); MONOCYTES # (AUTO) 0.7 X10'3 (0-0.9); MONOCYTES % (AUTO) 7.6 % (2-12); NEUTROPHILS # (AUTO) 6.1 X10'3 (1.8-7.7); PLATELET COUNT 401 X10'3 (140-440); RED CELL DISTRIBUTION WIDTH 18.4 % (11.5-14.5); WHITE BLOOD COUNT 9.2 X10'3 (4.5-11.0)
[2021-03-07] MEDS: heparin, porcine 5000 units/ml vial SQ SCH ×2 (09:36→19:00)
[2021-03-07] MEDS: Potassium Cl inj 20 MEQ in dextrose 5%-water 1,000 ML IV SCH ×2 (09:36→22:28)
[2021-03-07] MEDS: lactobacillus rhamnosus 10,000 MMU CELLS/CAPSULE PO SCH ×2 (09:39→19:00)
[2021-03-07] MEDS: gabapentin 300mg capsule PO SCH ×3 (09:40→19:58)
[2021-03-07] MEDS: nystatin 500,000 unit/5ML UD oral suspension PO SCH ×3 (09:41→19:00)
[2021-03-07] MEDS: nystatin 15 GM powder TP SCH ×3 (09:42→19:01)
[2021-03-07] MEDS: pantoprazole 40mg Tablet.DR PO SCH (09:42)
[2021-03-07 09:43] LABS: ALANINE AMINOTRANSFERASE 35 U/L (12-78); ALBUMIN/GLOBULIN RATIO 0.4 (1.1-1.5); ALKALINE PHOSPHATASE 128 IU/L (46-116); ANION GAP 9 (8-16); ASPARTATE AMINO TRANSFERASE 28 U/L (10-37); BILIRUBIN,TOTAL 0.2 MG/DL (0.1-1.0); BLOOD UREA NITROGEN 23 MG/DL (7-18); BUN/CREATININE RATIO 21.5 (6.6-38.0); CALCIUM 8.3 MG/DL (8.5-10.1); CHLORIDE 99 MMOL/L (99-107); CREATININE 1.07 MG/DL (0.40-0.90); GLUCOSE 174 MG/DL (70-104); POTASSIUM 4.6 MMOL/L (3.5-5.1); SODIUM 133 MMOL/L (135-145); TOTAL CARBON DIOXIDE 24.9 MMOL/L (24-32); eGFR 51 ML/MIN
[2021-03-07 11:00] VITALS: BP 107/55
[2021-03-07] MEDS: HYDROcodone/acetaminophen 10/325mg tab PO PRN ×2 (11:37→19:13)
[2021-03-07] MEDS ORDERED: VANCOMYCIN LEVEL IV ONE (12:30)
[2021-03-07] MEDS: VANCOmycin 1250MG/NS 250ml Bag 250 ML IV SCH (13:30)
[2021-03-07 15:00] VITALS: BP 111/56
[2021-03-07 18:00] VITALS: BP 133/58
--- NOTE | 2021-03-07 18:00 | NUR ---
Patient in room PCU 3017. I have received report from Debra SUBRAMANIAN and had the opportunity to ask questions and assume patient care.
--- NOTE | 2021-03-07 18:40 | NUR ---
Problems reprioritized. Patient report given, questions answered & plan of care reviewed with MORIS CAIN.
[2021-03-07] MEDS: bisacodyl 10mg suppository rectal RC SCH (19:00)
[2021-03-07] MEDS: amitriptyline 10mg tablet PO SCH (19:00)
--- NOTE | 2021-03-07 19:24 | NUR ---
UNABLE TO COVER DINNER BLOOD GLUCOSE WAS NOT CHECKED FOR LUNCH OR DINNER AND NO DINNER TICKET AVAILABLE. PATIENT STATED THAT SHE EATS ICECREAM BUT DOESN'T HAVE A GOOD MEMORY TO WHEN SHE ATE IT LAST. WILL CHECK BLOOD SUGAR AT HS TO CATCH UP AND ADMINISTER LANTUS.
[2021-03-07] MEDS: diphenhydrAMINE 25mg capsule PO PRN (19:59)
[2021-03-07] MEDS: insulin glargine (Lantus) pen - multi-dose SQ SCH (21:33)
[2021-03-07] MEDS: haloperidol lactate 5mg/ml inj IM PRN (21:34)
[2021-03-07] MEDS: morphine 2 MG/ML inj. syringe IV PRN (21:35)
[2021-03-08 02:00] VITALS: BP 110/84
[2021-03-08] MEDS: morphine 2 MG/ML inj. syringe IV PRN ×2 (03:18→16:05)
[2021-03-08 06:00] VITALS: BP 117/81
[2021-03-08 06:18] LABS: BASOPHILS # (AUTO) 0.1 X10'3 (0-0.2); EOSINOPHILS # (AUTO) 0.2 X10'3 (0-0.9); EOSINOPHILS % (AUTO) 2.7 % (0-6); HEMATOCRIT 34.3 % (35.0-45.0); HEMOGLOBIN 11.1 g/dl (12.0-16.0); LYMPHOCYTES # (AUTO) 2.2 X10'3 (1.1-4.8); LYMPHOCYTES % (AUTO) 23.5 % (21-51); MEAN CORPUSCULAR HEMOGLOBIN 26.9 PG (27.0-31.0); MEAN CORPUSCULAR HGB CONC 32.4 g/dL (33.0-36.5); MEAN PLATELET VOLUME 6.7 FL (7.4-10.4); MONOCYTES # (AUTO) 0.7 X10'3 (0-0.9); MONOCYTES % (AUTO) 7.6 % (2-12); NEUTROPHILS # (AUTO) 6.1 X10'3 (1.8-7.7); NEUTROPHILS % (AUTO) 65.2 % (42-75); PLATELET COUNT 409 X10'3 (140-440); RED BLOOD COUNT 4.13 X10'6 (4.20-5.60); RED CELL DISTRIBUTION WIDTH 18.2 % (11.5-14.5); WHITE BLOOD COUNT 9.4 X10'3 (4.5-11.0)
[2021-03-08 06:30] LABS: ALANINE AMINOTRANSFERASE 31 U/L (12-78); ALBUMIN 2.1 G/DL (3.4-5.0); ALBUMIN/GLOBULIN RATIO 0.4 (1.1-1.5); ALKALINE PHOSPHATASE 132 IU/L (46-116); ANION GAP 10 (8-16); ASPARTATE AMINO TRANSFERASE 27 U/L (10-37); BILIRUBIN,TOTAL 0.2 MG/DL (0.1-1.0); BLOOD UREA NITROGEN 24 MG/DL (7-18); BUN/CREATININE RATIO 25.3 (6.6-38.0); CALCIUM 8.6 MG/DL (8.5-10.1); CHLORIDE 97 MMOL/L (99-107); CREATININE 0.95 MG/DL (0.40-0.90); GLUCOSE 165 MG/DL (70-104); SODIUM 131 MMOL/L (135-145); TOTAL CARBON DIOXIDE 23.8 MMOL/L (24-32); TOTAL PROTEIN 7.3 G/DL (6.4-8.2); eGFR 58 ML/MIN
[2021-03-08] MEDS: diphenhydrAMINE 25mg capsule PO PRN (07:01)
[2021-03-08] MEDS: HYDROcodone/acetaminophen 10/325mg tab PO PRN ×2 (07:03→12:14)
--- NOTE | 2021-03-08 07:24 | NUR ---
Problems reprioritized. Patient report given, questions answered & plan of care reviewed with Deepika SUBRAMANIAN.
[2021-03-08] MEDS: gabapentin 300mg capsule PO SCH ×2 (07:55→19:57)
[2021-03-08] MEDS: lactobacillus rhamnosus 10,000 MMU CELLS/CAPSULE PO SCH ×2 (07:55→19:57)
[2021-03-08] MEDS: pantoprazole 40mg Tablet.DR PO SCH (07:55)
[2021-03-08] MEDS: heparin, porcine 5000 units/ml vial SQ SCH ×2 (07:56→19:57)
[2021-03-08] MEDS: nystatin 15 GM powder TP SCH ×3 (07:57→21:23)
[2021-03-08] MEDS: JUVEN Shake w/Arg/Glut/Ca2+Bmb (Juven 19.3gm) pkt 240ml PO SCH ×2 (07:58→13:00)
[2021-03-08] MEDS: K and/or MAG REPLACEMENT MC SCH ×4 (08:00→20:00)
--- NOTE | 2021-03-08 09:02 | NUR ---
F/u 03/08: Pt w/ significant improvement in PO intake, eating mostly 100% of meals on CCHO/MM5 diet and 100% of Raf shakes since last RD assessment. Receiving KCl/D5 at 100ml/hr providing additional 408 kcals/day. LBM 03/07. Intake adequate, current diet tolerated. No new nutritional interventions implemented at this time. Will continue to monitor PO trends. Recommendations: 1) Continue carb controlled/MM5/thin diet per TECHNOLOGIES DIVISION CHAIR recs, ice cream w/ dinners 2) Encourage PO intake and assist with meals given left arm amputation and prior poor PO intake 3) Raf shake TIDWM for wound healing 4) Routine bowel care 5) Weekly scaled weights Addendum: 03/08/21 at [address] Amended: Links added.
[2021-03-08] MEDS: insulin Lispro (HumaLOG) vial - multi-dose SQ SCH ×2 (10:20→19:58)
[2021-03-08] MEDS: nystatin 500,000 unit/5ML UD oral suspension PO SCH ×3 (10:21→21:23)
[2021-03-08 11:00] VITALS: BP 126/64
[2021-03-08] MEDS ORDERED: VANCOMYCIN LEVEL IV ONE (12:30)
--- NOTE | 2021-03-08 12:52 | NUR ---
Page to Dr. Barnes [id number] Karen [place]- Continue D5W 20meq at 100ml/hr. K 5.0 and Na131? Deepika [phone]
--- NOTE | 2021-03-08 13:11 | NUR ---
Page to Dr. Barnes [id number] [place]- Critical vancomycin trough of 22.3. Deepika [phone]
[2021-03-08] MEDS: VANCOmycin 1250MG/NS 250ml Bag 250 ML IV SCH (13:53)
[2021-03-08] MEDS: Potassium Cl inj 20 MEQ in dextrose 5%-water 1,000 ML IV SCH (14:08)
[2021-03-08 15:00] VITALS: BP 91/63
--- NOTE | 2021-03-08 18:00 | NUR ---
Patient in room PCU 3017. I have received report from angy petersen and had the opportunity to ask questions and assume patient care.
[2021-03-08] MEDS: haloperidol lactate 5mg/ml inj IM PRN (20:03)
[2021-03-08] MEDS: bisacodyl 10mg suppository rectal RC SCH (21:00)
[2021-03-08] MEDS: amitriptyline 10mg tablet PO SCH (21:23)
[2021-03-08] MEDS: insulin glargine (Lantus) pen - multi-dose SQ SCH (21:26)
[2021-03-09] MEDS: HYDROcodone/acetaminophen 10/325mg tab PO PRN ×2 (01:52→15:28)
[2021-03-09] MEDS: hydrOXYzine 25 MG tablet PO PRN ×2 (01:52→10:14)
[2021-03-09 02:35] VITALS: BP 113/70
[2021-03-09 06:00] VITALS: BP 140/66
[2021-03-09 06:11] LABS: BASOPHILS # (AUTO) 0.1 X10'3 (0-0.2); BASOPHILS % (AUTO) 0.9 % (0-1); EOSINOPHILS # (AUTO) 0.2 X10'3 (0-0.9); EOSINOPHILS % (AUTO) 1.8 % (0-6); HEMATOCRIT 33.1 % (35.0-45.0); HEMOGLOBIN 10.8 g/dl (12.0-16.0); LYMPHOCYTES # (AUTO) 1.9 X10'3 (1.1-4.8); LYMPHOCYTES % (AUTO) 18.8 % (21-51); MEAN CORPUSCULAR HEMOGLOBIN 27.1 PG (27.0-31.0); MEAN CORPUSCULAR HGB CONC 32.7 g/dL (33.0-36.5); MEAN CORPUSCULAR VOLUME 82.9 FL (78-98); MEAN PLATELET VOLUME 6.7 FL (7.4-10.4); MONOCYTES # (AUTO) 0.8 X10'3 (0-0.9); MONOCYTES % (AUTO) 7.3 % (2-12); NEUTROPHILS # (AUTO) 7.3 X10'3 (1.8-7.7); NEUTROPHILS % (AUTO) 71.2 % (42-75); PLATELET COUNT 406 X10'3 (140-440); RED CELL DISTRIBUTION WIDTH 18.5 % (11.5-14.5); WHITE BLOOD COUNT 10.2 X10'3 (4.5-11.0)
--- NOTE | 2021-03-09 06:15 | NUR ---
Patient in room PCU 3017. I have received report from MORIS Mrea and had the opportunity to ask questions and assume patient care.
[2021-03-09 06:44] LABS: ALANINE AMINOTRANSFERASE 30 U/L (12-78); ALBUMIN 2.1 G/DL (3.4-5.0); ALBUMIN/GLOBULIN RATIO 0.4 (1.1-1.5); ALKALINE PHOSPHATASE 153 IU/L (46-116); ANION GAP 9 (8-16); ASPARTATE AMINO TRANSFERASE 33 U/L (10-37); BILIRUBIN,TOTAL 0.3 MG/DL (0.1-1.0); BLOOD UREA NITROGEN 26 MG/DL (7-18); BUN/CREATININE RATIO 25.2 (6.6-38.0); CALCIUM 8.5 MG/DL (8.5-10.1); CHLORIDE 100 MMOL/L (99-107); CREATININE 1.03 MG/DL (0.40-0.90); GLUCOSE 111 MG/DL (70-104); POTASSIUM 4.5 MMOL/L (3.5-5.1); SODIUM 135 MMOL/L (135-145); TOTAL CARBON DIOXIDE 25.7 MMOL/L (24-32); TOTAL PROTEIN 7.2 G/DL (6.4-8.2); eGFR 53 ML/MIN
[2021-03-09] MEDS: K and/or MAG REPLACEMENT MC SCH ×2 (08:00)
[2021-03-09] MEDS: JUVEN Shake w/Arg/Glut/Ca2+Bmb (Juven 19.3gm) pkt 240ml PO SCH ×3 (08:00→17:47)
[2021-03-09] MEDS: pantoprazole 40mg Tablet.DR PO SCH (10:13)
[2021-03-09] MEDS: haloperidol lactate 5mg/ml inj IM PRN (10:13)
[2021-03-09] MEDS: nystatin 15 GM powder TP SCH ×2 (10:14→13:00)
[2021-03-09] MEDS: heparin, porcine 5000 units/ml vial SQ SCH (10:14)
[2021-03-09] MEDS: lactobacillus rhamnosus 10,000 MMU CELLS/CAPSULE PO SCH (10:14)
[2021-03-09] MEDS: nystatin 500,000 unit/5ML UD oral suspension PO SCH ×2 (10:14→13:15)
[2021-03-09] MEDS: gabapentin 300mg capsule PO SCH (10:14)
[2021-03-09 11:00] VITALS: BP 114/60
--- NOTE | 2021-03-09 11:02 | NUR ---
Paged Dr Pena PAGER ID: [phone] MESSAGE: Room 3017A, Karen Cho. Can we change diet to soft (chop all 6)? Thanks, Maryann [phone]
--- NOTE | 2021-03-09 12:58 | NUR ---
Patient was told that she might be going home per MD Pena. Pt is now very ademant about getting ahold of her family to go home. She is yelling out loud when her cell phone is not doing what she wants it to do. Tried to help her but she threw her phone multiple times and would not let me help her. Advised I will go get her Geodon for agitation. She wants it but does NOT want her Vanco IV. She advised that she is done with IV medications.
[2021-03-09] MEDS ORDERED: vancomycin/NS 1 GM ADD-VANTAGE 250 ML IV SCH (13:00)
[2021-03-09] MEDS ORDERED: CEPH250T PO (14:04)
[2021-03-09] MEDS ORDERED: ACET-1008 PO (14:05)
[2021-03-09 15:00] VITALS: BP 124/42
--- NOTE | 2021-03-09 16:02 | NUR ---
Patient pulled off tele and PIV Addendum: 03/09/21 at 1755 by Maryann Woo RN Pt is being d/c'd today. Ok to leave out
--- NOTE | 2021-03-09 17:08 | NUR ---
Called Angela Jorge [phone] to call in new rx keflex
--- NOTE | 2021-03-09 17:34 | NUR ---
Called [phone], spoke with Rocio, she confirmed with Gurinder re: time of warp picker.
--- NOTE | 2021-03-09 18:41 | NUR ---
Ok to D/C with home health per MD orders Pt wanted just to sign the D/C ppwk, educated on the importance of making her Dr appts and to follow up. She verbalized understanding. PIV and tele was already removed previously - pt tolerated well. All WC pictures and MRSA nasal swab completed. New RX called into [facility]. All personal belongings were sent with patient. Nursing staff wheeled out patient in her own w/c to private vehicle where was waiting.
[2021-03-12] MEDS ORDERED: VANCOMYCIN LEVEL IV ONE (12:30)
== END 2021-03-09 18:30 | disposition home health service (06) | DRG 853 ==
LOC: ER 10:47 → UNDOADMIN 14:10 → ED HOLD 14:10 → PCU 3S 15:34 → PACU 02-13 20:08 → PCU 3S 02-13 22:45 → PACU 02-13 22:45
PROVIDERS: ADMIT Internal Medicine; ATTEND Internal Medicine
PROC: 0Y6J0Z3 Detachment at Left Lower Leg, Low, Open Approach (ICD-10-PCS; principal; 2021-02-13 20:31)
PROC: 0X6P0Z1 Detachment at Left Index Finger, High, Open Approach (ICD-10-PCS; 2021-02-19)
PROC: 0JDH0ZZ Extraction of Left Lower Arm Subcutaneous Tissue and Fascia, Open Approach (ICD-10-PCS; 2021-02-19)
PROC: 0X6 Anatomical Regions, Upper Extremities, Detachment (ICD-10-PCS; 2021-02-22)
PROC: 30233N1 Transfusion of Nonautologous Red Blood Cells into Peripheral Vein, Percutaneous Approach (ICD-10-PCS; 2021-02-22)
PROC: 3E0T3BZ Introduction of Anesthetic Agent into Peripheral Nerves and Plexi, Percutaneous Approach (ICD-10-PCS; 2021-02-22)
PROC: 3E0T33Z Introduction of Anti-inflammatory into Peripheral Nerves and Plexi, Percutaneous Approach (ICD-10-PCS; 2021-02-22)
DX: A41.9 Sepsis, unspecified organism (principal); R65.21 Severe sepsis with septic shock; M72.6 Necrotizing fasciitis; G92 Toxic encephalopathy; E43 Unspecified severe protein-calorie malnutrition; N17.0 Acute kidney failure with tubular necrosis; L03.114 Cellulitis of left upper limb; M86.072 Acute hematogenous osteomyelitis, left ankle and foot; E11.52 Type 2 diabetes mellitus with diabetic peripheral angiopathy with gangrene; L02.414 Cutaneous abscess of left upper limb; L97.429 Non-pressure chronic ulcer of left heel and midfoot with unspecified severity; E87.2 Acidosis; E87.0 Hyperosmolality and hypernatremia; B95.62 Methicillin resistant Staphylococcus aureus infection as the cause of diseases classified elsewhere; D64.9 Anemia, unspecified; E11.40 Type 2 diabetes mellitus with diabetic neuropathy, unspecified; F12.90 Cannabis use, unspecified, uncomplicated; I95.9 Hypotension, unspecified; Z20.822 Contact with and (suspected) exposure to COVID-19; E11.628 Type 2 diabetes mellitus with other skin complications; E87.6 Hypokalemia; M19.90 Unspecified osteoarthritis, unspecified site; F15.10 Other stimulant abuse, uncomplicated; F17.210 Nicotine dependence, cigarettes, uncomplicated; E11.621 Type 2 diabetes mellitus with foot ulcer; W01.0XXA Fall on same level from slipping, tripping and stumbling without subsequent striking against object, initial encounter; Y93.01 Activity, walking, marching and hiking; I10 Essential (primary) hypertension; E11.69 Type 2 diabetes mellitus with other specified complication; L89.159 Pressure ulcer of sacral region, unspecified stage; M65.832 Other synovitis and tenosynovitis, left forearm; Z59.0 Homelessness; Z79.4 Long term (current) use of insulin; Z88.5 Allergy status to narcotic agent; Z79.899 Other long term (current) drug therapy; Z68.27 Body mass index [BMI] 27.0-27.9, adult; Y92.098 Other place in other non-institutional residence as the place of occurrence of the external cause; Y99.8 Other external cause status
CPT/HCPCS: 36415; 36430; 36600; 70450; 71045; 73090; 73200; 73201; 73630; 73700; 76937; 80048; 80053; 80202; 80305; 80320; 81001; 82550; 82570; 82803; 82948; 83036; 83605; 83735; 83880; 84100; 84133; 84145; 84156; 84300; 84484; 84540; 85007; 85008; 85018; 85025; 85379; 85651; 85730; 86140; 86885; 86900; 86901; 86920; 87040; 87070; 87075; 87077; 87081; 87186; 87635; 88300; 88307; 92508; 92616; 93005; 93306; 93926; 96365; 96367; 96372; 96375; 97110; 97112; 97161; 97530; 97535; 99291; A4618; A6222; A6253; A6446; A6449; A6550; A7000; G0378; J0131; J0696; J0735; J1100; J1630; J1644; J1650; J1815; J2001; J2060; J2250; J2270; J2405; J2543; J2704; J2795; J3010; J3370; J3475; J3480; J3486; J3490; J7030; J7050; J7070; J7120; P9016; P9045; Q0163; Q0177; Q9967

== ENCOUNTER 2021-03-18 17:51 | Emergency (ER) | payer BC, MEDICAID ==
[~2021-03-18] VITALS: Ht 157.5 cm; Wt 68.2 kg
[~2021-03-18 17:51] MED LIST changes: +ACET-1008 PO; -ACET-2119 PO; +AMIT10TA6 PO; +AMLO5TAB16 PO; +ATOR10TA70 PO; +CEPH250T PO; -DIPH-915 PO; +GABA300C PO; -GLARGINE INSULIN SQ; +HYDR12.55 PO; -IBUP-1984 PO; +LANTUS SQ; +LISI10TA27 PO; +METF-950 PO; +OMEP40CA21 PO; -vancomycin/NS 1 GM ADD-VANTAGE 250 ML IV PRN
[2021-03-18 18:12] VITALS: BP 112/35
== END 2021-03-18 22:53 | disposition left against medical advice (07) ==
LOC: ER 17:51
DX: Z53.21 Procedure and treatment not carried out due to patient leaving prior to being seen by health care provider (principal)

== ENCOUNTER 2021-03-28 10:51 | Inpatient (IN) | payer BC, MEDICAID ==
[~2021-03-28] VITALS: Ht 157.5 cm; Wt 63.6 kg
[~2021-03-28 10:51] MED LIST changes: -ACET-1008 PO
--- NOTE | 2021-03-28 13:00 | NUR ---
Pt c/o painful draining wound on L BKA. 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
[2021-03-28 13:52] LABS: BASOPHILS # (AUTO) 0.1 X10'3 (0-0.2); BASOPHILS % (AUTO) 0.7 % (0-1); EOSINOPHILS # (AUTO) 0.1 X10'3 (0-0.9); EOSINOPHILS % (AUTO) 0.8 % (0-6); HEMATOCRIT 35.9 % (35.0-45.0); HEMOGLOBIN 11.9 g/dl (12.0-16.0); LYMPHOCYTES # (AUTO) 2.7 X10'3 (1.1-4.8); LYMPHOCYTES % (AUTO) 34.5 % (21-51); MEAN CORPUSCULAR HEMOGLOBIN 27.6 PG (27.0-31.0); MEAN CORPUSCULAR HGB CONC 33.1 g/dL (33.0-36.5); MEAN CORPUSCULAR VOLUME 83.1 FL (78-98); MONOCYTES # (AUTO) 0.4 X10'3 (0-0.9); MONOCYTES % (AUTO) 5.4 % (2-12); NEUTROPHILS # (AUTO) 4.6 X10'3 (1.8-7.7); NEUTROPHILS % (AUTO) 58.6 % (42-75); PLATELET COUNT 360 X10'3 (140-440); RED BLOOD COUNT 4.32 X10'6 (4.20-5.60); WHITE BLOOD COUNT 7.9 X10'3 (4.5-11.0)
[2021-03-28 14:02] LABS: ALANINE AMINOTRANSFERASE 14 U/L (12-78); ALBUMIN/GLOBULIN RATIO 0.6 (1.1-1.5); ALKALINE PHOSPHATASE 161 IU/L (46-116); ANION GAP 12 (8-16); ASPARTATE AMINO TRANSFERASE 15 U/L (10-37); BILIRUBIN,TOTAL 0.3 MG/DL (0.1-1.0); BLOOD UREA NITROGEN 18 MG/DL (7-18); BUN/CREATININE RATIO 17.5 (6.6-38.0); CALCIUM 8.9 MG/DL (8.5-10.1); CHLORIDE 106 MMOL/L (99-107); CREATININE 1.03 MG/DL (0.40-0.90); GLUCOSE 83 MG/DL (70-104); POTASSIUM 4.4 MMOL/L (3.5-5.1); SODIUM 140 MMOL/L (135-145); TOTAL CARBON DIOXIDE 21.9 MMOL/L (24-32); TOTAL PROTEIN 8.3 G/DL (6.4-8.2); eGFR 53 ML/MIN
[2021-03-28] MEDS ORDERED: piperacillin/tazo 3.375gm/50ml 50 ML IV ONE (14:20)
[2021-03-28] MEDS ORDERED: vancomycin/NS 1 GM ADD-VANTAGE 250 ML IV ONE (14:20)
[2021-03-28] MEDS ORDERED: normal saline 1000ML IV soln IV ONE (14:20)
[2021-03-28] MEDS ORDERED: GABA300C PO (14:49)
[2021-03-28] MEDS ORDERED: acetaminophen 325mg tablet PO PRN (14:55)
[2021-03-28] MEDS: normal saline 1000ml 1,000 ML IV SCH (14:55)
[2021-03-28] MEDS ORDERED: magnesium hydroxide 30ml (MOM) UD suspension PO PRN (14:55)
[2021-03-28] MEDS ORDERED: mag hydrox/Alum hydrox/simeth 30ml oral suspension PO PRN (14:55)
[2021-03-28 15:23] LABS: ANISOCYTOSIS 2+; PLATELET ESTIMATE NORMAL
[2021-03-28 17:31] LABS: COLOR,URINE YELLOW (Yellow); UA COLLECTION TYPE NON-SPECIFIED
[2021-03-28 17:32] LABS: CLARITY,URINE CLOUDY (Clear); GLUCOSE, URINE NEGATIVE (Neg); KETONES,URINE NEGATIVE (Neg); LEUKOCYTE ESTERASE ,URINE MODERATE (Neg); NITRITES, URINE POSITIVE (Neg); OCCULT BLOOD,URINE LARGE (Neg); PROTEIN,URINE 30 mg/dl (Neg); UROBILINOGEN,URINE 0.2 E.U/dL (0.2-1.0)
[2021-03-28 17:39] LABS: WBC,URINE 30-50 /HPF (0-4)
[2021-03-28 17:40] LABS: BACTERIA,URINE 4+ /HPF (Neg); MUCUS STRANDS MODERATE /LPF (Neg); RBC,URINE 20-50 /HPF (0-2); SQUAMOUS EPITHELIAL CELL,UR MANY /LPF (FEW)
[2021-03-28 17:41] LABS: TRANSITIONAL EPI CELLS,URINE FEW /HPF
[2021-03-28 17:42] LABS: URINE AMPHETAMINE SCREEN POSITIVE (Neg); URINE BARBITUATE SCREEN NEGATIVE (Neg); URINE BENZODIAZEPINES SCREEN NEGATIVE (Neg); URINE CANNABINOID SCREEN NEGATIVE (Neg); URINE COCAINE SCREEN NEGATIVE (Neg); URINE METHADONE SCREEN NEGATIVE (Neg); URINE OPIATE SCREEN NEGATIVE (Neg); URINE PHENCYCLIDINE SCREEN NEGATIVE (Neg)
--- NOTE | 2021-03-28 17:46 | NUR ---
Received report from MORIS Jensen. Awaiting patient arrival to room 349B.
[2021-03-28 18:00] VITALS: BP 113/51
[2021-03-28 18:07] VITALS: BP 97/76
--- NOTE | 2021-03-28 18:08 | NUR ---
Received patient to room 349B via [facility] with x1 staff and x2 nursing students. Patient able to turn and reposition easily and appears to be anxious she cannot stay still. She states "I'm anxious. I don't want to have this done again. I'm scared." Patient oriented to room and call light. Call light placed within patient's reach. Bed is low and locked. BG 73. Apple juice given to patient to drink. Will continue to monitor.
--- NOTE | 2021-03-28 18:30 | NUR ---
Patient in room [facility]ENC[facility] 349B. I have received report from MORIS Velázquez and had the opportunity to ask questions and assume patient care.
--- NOTE | 2021-03-28 18:56 | NUR ---
Problems reprioritized. Patient report given, questions answered & plan of care reviewed with MORIS Miranda. Patient had her home meds out on table. apple packing header, December picked up to place in pharmacy patient aware and gave permission.
[2021-03-28] MEDS: docusate sod 100mg capsule PO SCH (20:00)
[2021-03-28] MEDS: vancomycin/NS 1 GM ADD-VANTAGE 250 ML IV SCH (20:13)
[2021-03-28] MEDS: HYDROcodone/acetaminophen 5mg/325mg tablet PO PRN (20:20)
[2021-03-28] MEDS: amitriptyline 10mg tablet PO SCH (20:21)
[2021-03-28] MEDS: gabapentin 300mg capsule PO SCH (20:21)
[2021-03-28] MEDS: enoxaparin 30mg/0.3ml syringe SQ SCH (20:22)
[2021-03-29] VITALS: BP 139/70
[2021-03-29] MEDS: piperacillin/tazo 3.375gm/50ml 50 ML IV SCH ×3 (00:44→18:42)
[2021-03-29] MEDS: normal saline 1000ml 1,000 ML IV SCH ×2 (01:38→10:59)
--- NOTE | 2021-03-29 06:21 | NUR ---
Problems reprioritized. Patient report given, questions answered & plan of care reviewed with MORIS Velázquez.
--- NOTE | 2021-03-29 06:22 | NUR ---
Patient in room SPENCER 349. I have received report from MORIS Miranda and had the opportunity to ask questions and assume patient care.
[2021-03-29 06:29] LABS: BASOPHILS % (AUTO) 0.6 % (0-1); EOSINOPHILS # (AUTO) 0.1 X10'3 (0-0.9); EOSINOPHILS % (AUTO) 1.6 % (0-6); HEMATOCRIT 30.9 % (35.0-45.0); HEMOGLOBIN 10.4 g/dl (12.0-16.0); LYMPHOCYTES # (AUTO) 2.1 X10'3 (1.1-4.8); MEAN CORPUSCULAR HEMOGLOBIN 27.9 PG (27.0-31.0); MEAN CORPUSCULAR HGB CONC 33.6 g/dL (33.0-36.5); MEAN CORPUSCULAR VOLUME 83.1 FL (78-98); MEAN PLATELET VOLUME 6.8 FL (7.4-10.4); MONOCYTES # (AUTO) 0.6 X10'3 (0-0.9); MONOCYTES % (AUTO) 8.2 % (2-12); NEUTROPHILS % (AUTO) 58.6 % (42-75); PLATELET COUNT 276 X10'3 (140-440); RED BLOOD COUNT 3.71 X10'6 (4.20-5.60); WHITE BLOOD COUNT 6.9 X10'3 (4.5-11.0)
[2021-03-29 06:35] LABS: ALBUMIN 2.3 G/DL (3.4-5.0); ANION GAP 10 (8-16); BLOOD UREA NITROGEN 13 MG/DL (7-18); BUN/CREATININE RATIO 14.8 (6.6-38.0); CALCIUM 8.3 MG/DL (8.5-10.1); CHLORIDE 106 MMOL/L (99-107); CREATININE 0.88 MG/DL (0.40-0.90); GLUCOSE 89 MG/DL (70-104); POTASSIUM 3.6 MMOL/L (3.5-5.1); SODIUM 136 MMOL/L (135-145); TOTAL CARBON DIOXIDE 19.7 MMOL/L (24-32); eGFR 64 ML/MIN
[2021-03-29 07:00] VITALS: BP 136/67
[2021-03-29] MEDS: docusate sod 100mg capsule PO SCH ×2 (08:00→20:00)
[2021-03-29] MEDS: insulin glargine (Lantus) pen - multi-dose SQ SCH ×2 (08:00→21:00)
[2021-03-29] MEDS: atorvastatin 10mg tablet PO SCH (08:53)
[2021-03-29] MEDS: HYDROcodone/acetaminophen 5mg/325mg tablet PO PRN ×3 (08:55→22:00)
[2021-03-29] MEDS: HYDROchlorothiazide 12.5mg capsule PO SCH (08:57)
[2021-03-29] MEDS: gabapentin 300mg capsule PO SCH ×2 (08:59→14:04)
[2021-03-29] MEDS: pantoprazole 40mg Tablet.DR PO SCH (09:01)
[2021-03-29] MEDS: amLODIPine 5mg tablet PO SCH (09:01)
[2021-03-29] MEDS: lisinopril 10 MG tablet PO SCH (09:03)
[2021-03-29] MEDS: enoxaparin 30mg/0.3ml syringe SQ SCH ×2 (09:06→22:02)
[2021-03-29] MEDS: HYDROmorphone inj. 0.5 MG/0.5 ML DISP.SYRIN IV PRN (10:20)
[2021-03-29 11:00] VITALS: BP 117/60
--- NOTE | 2021-03-29 12:26 | NUR ---
kenzie wayne and dr young in to see patient.
[2021-03-29] MEDS ORDERED: iohexol 300mg/ml 100ml inj. ONE (12:49)
--- NOTE | 2021-03-29 13:16 | NUR ---
Patient down to Ct.
[2021-03-29 15:00] VITALS: BP 113/59
[2021-03-29] MEDS ORDERED: glucagon, human recombinant 1mg kit SUBCUT PRN (15:25)
[2021-03-29] MEDS ORDERED: dextrose 50%-water 50ml dispensing syringe IV PRN ×2 (15:25)
[2021-03-29] MEDS ORDERED: MESSAGE TO PHARMACY PO ONE (15:25)
[2021-03-29] MEDS ORDERED: dextrose ORAL solution 15 GM/59 ML bottle PO PRN ×2 (15:25)
[2021-03-29] MEDS: vancomycin/NS 1 GM ADD-VANTAGE 250 ML IV SCH (16:39)
[2021-03-29] MEDS: sodium bicarbonate (8.4%) inj. 100 MEQ in dextrose 5%-water 1,000 ML IV SCH (18:03)
[2021-03-29 18:14] LABS: CLARITY,URINE CLOUDY (Clear); COLOR,URINE YELLOW (Yellow); GLUCOSE, URINE NEGATIVE (Neg); KETONES,URINE NEGATIVE (Neg); PROTEIN,URINE TRACE mg/dl (Neg); UA COLLECTION TYPE STRAIGHT CATH
[2021-03-29 18:15] LABS: LEUKOCYTE ESTERASE ,URINE SMALL (Neg); NITRITES, URINE NEGATIVE (Neg); OCCULT BLOOD,URINE LARGE (Neg); UROBILINOGEN,URINE 0.2 E.U/dL (0.2-1.0)
[2021-03-29 18:24] LABS: BACTERIA,URINE FEW /HPF (Neg); RBC,URINE 20-50 /HPF (0-2); SQUAMOUS EPITHELIAL CELL,UR NONE SEEN /LPF (FEW)
--- NOTE | 2021-03-29 19:08 | NUR ---
Problems reprioritized. Patient report given, questions answered & plan of care reviewed with MORIS Richardson.
--- NOTE | 2021-03-29 19:26 | NUR ---
Patient in room SPENCER 349. I have received report from Melania SUBRAMANIAN and had the opportunity to ask questions and assume patient care.
--- NOTE | 2021-03-29 19:34 | NUR ---
Patient in room SPENCER 349. I have received report from Melania and had the opportunity to ask questions and assume patient care.
[2021-03-29 20:00] VITALS: BP 100/52
[2021-03-29] MEDS: lactobacillus rhamnosus 10,000 MMU CELLS/CAPSULE PO SCH (21:58)
[2021-03-29] MEDS: amitriptyline 10mg tablet PO SCH (21:58)
[2021-03-30] VITALS: BP 109/55
[2021-03-30] MEDS: piperacillin/tazo 3.375gm/50ml 50 ML IV SCH ×4 (00:41→23:29)
[2021-03-30] MEDS: sodium bicarbonate (8.4%) inj. 100 MEQ in dextrose 5%-water 1,000 ML IV SCH ×2 (02:25→03:46)
--- NOTE | 2021-03-30 06:05 | NUR ---
Problems reprioritized. Patient report given, questions answered & plan of care reviewed with Ev SUBRAMANIAN.
--- NOTE | 2021-03-30 06:43 | NUR ---
Patient in room SPENCER 349. I have received report from Debra SUBRAMANIAN and had the opportunity to ask questions and assume patient care.
[2021-03-30 07:00] VITALS: BP 129/63
[2021-03-30] MEDS: HYDROchlorothiazide 12.5mg capsule PO SCH (07:15)
[2021-03-30] MEDS: atorvastatin 10mg tablet PO SCH (07:16)
[2021-03-30] MEDS: lactobacillus rhamnosus 10,000 MMU CELLS/CAPSULE PO SCH ×2 (07:16→21:03)
[2021-03-30] MEDS: pantoprazole 40mg Tablet.DR PO SCH (07:16)
[2021-03-30] MEDS: lisinopril 10 MG tablet PO SCH (07:17)
[2021-03-30] MEDS: gabapentin 300mg capsule PO SCH ×2 (07:17→21:04)
[2021-03-30] MEDS: amLODIPine 5mg tablet PO SCH (07:18)
[2021-03-30] MEDS: HYDROcodone/acetaminophen 5mg/325mg tablet PO PRN (07:18)
[2021-03-30 07:22] LABS: ALBUMIN 2.1 G/DL (3.4-5.0); ANION GAP 6 (8-16); BLOOD UREA NITROGEN 11 MG/DL (7-18); BUN/CREATININE RATIO 11.6 (6.6-38.0); CHLORIDE 104 MMOL/L (99-107); CREATININE 0.95 MG/DL (0.40-0.90); GLUCOSE 115 MG/DL (70-104); POTASSIUM 3.2 MMOL/L (3.5-5.1); SODIUM 135 MMOL/L (135-145); TOTAL CARBON DIOXIDE 25.4 MMOL/L (24-32); eGFR 58 ML/MIN
[2021-03-30 07:27] LABS: BASOPHILS % (AUTO) 0.4 % (0-1); EOSINOPHILS # (AUTO) 0.1 X10'3 (0-0.9); EOSINOPHILS % (AUTO) 1.9 % (0-6); HEMATOCRIT 30.2 % (35.0-45.0); LYMPHOCYTES # (AUTO) 2.3 X10'3 (1.1-4.8); LYMPHOCYTES % (AUTO) 33.8 % (21-51); MEAN CORPUSCULAR HEMOGLOBIN 27.6 PG (27.0-31.0); MEAN CORPUSCULAR HGB CONC 33.2 g/dL (33.0-36.5); MEAN CORPUSCULAR VOLUME 83.1 FL (78-98); MEAN PLATELET VOLUME 6.8 FL (7.4-10.4); MONOCYTES # (AUTO) 0.5 X10'3 (0-0.9); MONOCYTES % (AUTO) 7.5 % (2-12); NEUTROPHILS # (AUTO) 3.8 X10'3 (1.8-7.7); NEUTROPHILS % (AUTO) 56.4 % (42-75); PLATELET COUNT 268 X10'3 (140-440); RED BLOOD COUNT 3.64 X10'6 (4.20-5.60); RED CELL DISTRIBUTION WIDTH 19.4 % (11.5-14.5); WHITE BLOOD COUNT 6.8 X10'3 (4.5-11.0)
[2021-03-30] MEDS: docusate sod 100mg capsule PO SCH ×2 (07:29→21:02)
[2021-03-30] MEDS: enoxaparin 30mg/0.3ml syringe SQ SCH ×2 (07:30→21:04)
--- NOTE | 2021-03-30 08:22 | NUR ---
PAGER ID: [phone] MESSAGE: DANIELLE SUBRAMANIAN [phone] RE: ABDIRIZAK BATEMANB. PTS K -3.2. REQUESTING K/MAG REPLACEMENT. THANK YOU
[2021-03-30] MEDS ORDERED: potassium Cl 40MEQ/1/2NS 520ml 520 ML IV PRN (08:25)
[2021-03-30] MEDS ORDERED: magnesium 4gm in 100ml NS 100 ML IV PRN (08:25)
[2021-03-30] MEDS ORDERED: potassium Cl 20 mEq SR tablet PO PRN (08:25)
[2021-03-30] MEDS: potassium Cl 20 mEq SR tablet PO PRN ×3 (08:46→21:05)
[2021-03-30] MEDS: insulin glargine (Lantus) pen - multi-dose SQ SCH ×2 (08:46→21:00)
[2021-03-30 08:55] LABS: PLATELET ESTIMATE NORMAL
[2021-03-30 08:56] LABS: ANISOCYTOSIS 2+
[2021-03-30] MEDS: normal saline 1000ml 1,000 ML IV SCH ×2 (09:07→19:00)
--- NOTE | 2021-03-30 10:00 | NUR ---
Assumed care of this patient, I agree with this physical assessment. Addendum: 03/30/21 at 1044 by Sindhu De Los Santos RN Amended: Links added.
--- NOTE | 2021-03-30 10:02 | NUR ---
RECEIVED REPORT FROM MORIS SANTOS.
[2021-03-30 10:08] LABS: MAGNESIUM 1.1 MG/DL (1.5-2.4)
--- NOTE | 2021-03-30 11:02 | NUR ---
Patient has discharge orders. Received phone call from Hospitalist saying not to DC patient until she rounds. Will wait.
[2021-03-30 11:31] VITALS: BP 108/55
[2021-03-30] MEDS: magnesium Cl slow-release 64mg tablet PO PRN ×2 (15:11→21:05)
[2021-03-30] MEDS: vancomycin/NS 1 GM ADD-VANTAGE 250 ML IV SCH (15:11)
--- NOTE | 2021-03-30 18:29 | NUR ---
Problems reprioritized. Patient report given, questions answered & plan of care reviewed with MORIS Moore.
--- NOTE | 2021-03-30 19:13 | NUR ---
Patient in room SPENCER 349. I have received report from Sindhu SUBRAMANIAN and had the opportunity to ask questions and assume patient care.
[2021-03-30 19:20] VITALS: BP 162/73
[2021-03-30] MEDS: K and/or MAG REPLACEMENT MC SCH (20:00)
[2021-03-30] MEDS: amitriptyline 10mg tablet PO SCH (21:05)
[2021-03-30] MEDS: HYDROmorphone inj. 0.5 MG/0.5 ML DISP.SYRIN IV PRN (21:37)
[2021-03-31] VITALS: BP 111/54
[2021-03-31] MEDS: normal saline 1000ml 1,000 ML IV SCH ×3 (05:26→18:00)
--- NOTE | 2021-03-31 06:10 | NUR ---
Patient in room SPENCER 349. I have received report from wilfrido SUBRAMANIAN with indra SUBRAMANIAN and had the opportunity to ask questions and assume patient care.
--- NOTE | 2021-03-31 06:15 | NUR ---
Patient in room [facility]ENCER 349. I have received report from Idania SUBRAMANIAN and had the opportunity to ask questions and assume patient care.
[2021-03-31 06:56] LABS: BASOPHILS % (AUTO) 0.4 % (0-1); EOSINOPHILS # (AUTO) 0.1 X10'3 (0-0.9); EOSINOPHILS % (AUTO) 1.9 % (0-6); HEMATOCRIT 27.4 % (35.0-45.0); HEMOGLOBIN 9.3 g/dl (12.0-16.0); LYMPHOCYTES # (AUTO) 2.2 X10'3 (1.1-4.8); LYMPHOCYTES % (AUTO) 39.8 % (21-51); MEAN CORPUSCULAR HEMOGLOBIN 28.1 PG (27.0-31.0); MEAN CORPUSCULAR HGB CONC 34.1 g/dL (33.0-36.5); MEAN CORPUSCULAR VOLUME 82.5 FL (78-98); MEAN PLATELET VOLUME 6.4 FL (7.4-10.4); MONOCYTES # (AUTO) 0.4 X10'3 (0-0.9); MONOCYTES % (AUTO) 7.5 % (2-12); NEUTROPHILS # (AUTO) 2.8 X10'3 (1.8-7.7); NEUTROPHILS % (AUTO) 50.4 % (42-75); PLATELET COUNT 246 X10'3 (140-440); RED BLOOD COUNT 3.32 X10'6 (4.20-5.60); RED CELL DISTRIBUTION WIDTH 19.1 % (11.5-14.5); WHITE BLOOD COUNT 5.6 X10'3 (4.5-11.0)
[2021-03-31 07:00] VITALS: BP 125/55
[2021-03-31 07:11] LABS: ANION GAP 5 (8-16); BLOOD UREA NITROGEN 8 MG/DL (7-18); BUN/CREATININE RATIO 9.3 (6.6-38.0); CHLORIDE 109 MMOL/L (99-107); CREATININE 0.86 MG/DL (0.40-0.90); GLUCOSE 92 MG/DL (70-104); MAGNESIUM 1.1 MG/DL (1.5-2.4); POTASSIUM 3.7 MMOL/L (3.5-5.1); SODIUM 138 MMOL/L (135-145); TOTAL CARBON DIOXIDE 24.5 MMOL/L (24-32); eGFR 65 ML/MIN
[2021-03-31 07:18] LABS: ANISOCYTOSIS 2+; HYPOCHROMASIA 1+; PLATELET ESTIMATE NORMAL
--- NOTE | 2021-03-31 07:22 | NUR ---
Problems reprioritized. Patient report given, questions answered & plan of care reviewed with Shana SUBRAMANIAN.
[2021-03-31] MEDS: K and/or MAG REPLACEMENT MC SCH ×2 (08:00→20:00)
[2021-03-31] MEDS: docusate sod 100mg capsule PO SCH ×2 (08:00→20:00)
[2021-03-31] MEDS: insulin glargine (Lantus) pen - multi-dose SQ SCH ×2 (08:00→21:00)
[2021-03-31] MEDS: enoxaparin 30mg/0.3ml syringe SQ SCH ×2 (08:36→21:14)
[2021-03-31] MEDS: atorvastatin 10mg tablet PO SCH (08:37)
[2021-03-31] MEDS: pantoprazole 40mg Tablet.DR PO SCH (08:37)
[2021-03-31] MEDS: lisinopril 10 MG tablet PO SCH (08:37)
[2021-03-31] MEDS: gabapentin 300mg capsule PO SCH ×2 (08:37→21:15)
[2021-03-31] MEDS: lactobacillus rhamnosus 10,000 MMU CELLS/CAPSULE PO SCH ×2 (08:37→21:19)
[2021-03-31] MEDS: amLODIPine 5mg tablet PO SCH (08:37)
[2021-03-31] MEDS: piperacillin/tazo 3.375gm/50ml 50 ML IV SCH ×2 (08:37→17:58)
[2021-03-31] MEDS: HYDROchlorothiazide 12.5mg capsule PO SCH (08:38)
[2021-03-31] MEDS: HYDROcodone/acetaminophen 5mg/325mg tablet PO PRN ×2 (08:50→21:18)
[2021-03-31 11:00] VITALS: BP 137/58
[2021-03-31] MEDS ORDERED: VANCOMYCIN LEVEL IV ONE (15:30)
[2021-03-31] MEDS: vancomycin/NS 1 GM ADD-VANTAGE 250 ML IV SCH (15:40)
[2021-03-31 18:00] VITALS: BP 129/57
--- NOTE | 2021-03-31 18:07 | NUR ---
vanco through 35.7 ----blood test drawn while vanco IV was running - pharmacy Rafael aware. new test will be reschedule tomorrow. Do not account this high test per Rafael in pharmacy.
--- NOTE | 2021-03-31 18:12 | NUR ---
PAGER ID: [phone] MESSAGE: Karen Monet #[phone]: FYI-vanco through 35.7 ----blood test drawn while vanco IV was running - pharmacy Rafael aware. new test will be reschedule tomorrow. thank you Shana Carranza
--- NOTE | 2021-03-31 18:35 | NUR ---
Problems reprioritized. Patient report given to Mary RN with Shana RN, questions answered & plan of care reviewed with .
--- NOTE | 2021-03-31 18:45 | NUR ---
Patient in room [facility]. I have received report from MORIS Saldana and had the opportunity to ask questions and assume patient care.
--- NOTE | 2021-03-31 18:56 | NUR ---
Problems reprioritized. Patient report given, questions answered & plan of care reviewed with Susie SUBRAMANIAN.
--- NOTE | 2021-03-31 19:01 | NUR ---
Student documentation: I have reviewed and agree with all interventions, assessments performed and documented by [facility] [employer] [facility].
[2021-03-31] MEDS: amitriptyline 10mg tablet PO SCH (21:16)
[2021-04-01] VITALS: BP 136/55
[2021-04-01] MEDS: piperacillin/tazo 3.375gm/50ml 50 ML IV SCH ×3 (00:45→16:05)
[2021-04-01] MEDS: HYDROmorphone inj. 0.5 MG/0.5 ML DISP.SYRIN IV PRN ×3 (05:04→20:32)
[2021-04-01] MEDS: normal saline 1000ml 1,000 ML IV SCH ×3 (05:07→14:27)
--- NOTE | 2021-04-01 06:20 | NUR ---
Patient in room [facility]. I have received report from MORIS Hernandez and had the opportunity to ask questions and assume patient care.
[2021-04-01 06:30] VITALS: BP 115/52
[2021-04-01 06:45] LABS: BASOPHILS % (AUTO) 0.5 % (0-1); EOSINOPHILS # (AUTO) 0.1 X10'3 (0-0.9); EOSINOPHILS % (AUTO) 2.4 % (0-6); HEMATOCRIT 27.8 % (35.0-45.0); HEMOGLOBIN 9.6 g/dl (12.0-16.0); LYMPHOCYTES % (AUTO) 34.8 % (21-51); MEAN CORPUSCULAR HEMOGLOBIN 27.9 PG (27.0-31.0); MEAN CORPUSCULAR HGB CONC 34.4 g/dL (33.0-36.5); MEAN CORPUSCULAR VOLUME 81.2 FL (78-98); MEAN PLATELET VOLUME 6.4 FL (7.4-10.4); MONOCYTES # (AUTO) 0.4 X10'3 (0-0.9); MONOCYTES % (AUTO) 6.4 % (2-12); NEUTROPHILS # (AUTO) 3.2 X10'3 (1.8-7.7); NEUTROPHILS % (AUTO) 55.9 % (42-75); PLATELET COUNT 263 X10'3 (140-440); RED BLOOD COUNT 3.43 X10'6 (4.20-5.60); RED CELL DISTRIBUTION WIDTH 19.2 % (11.5-14.5); WHITE BLOOD COUNT 5.7 X10'3 (4.5-11.0)
--- NOTE | 2021-04-01 07:02 | NUR ---
Problems reprioritized. Patient report given, questions answered & plan of care reviewed with MORIS Obrien.
[2021-04-01 07:07] LABS: ANION GAP 8 (8-16); BLOOD UREA NITROGEN 8 MG/DL (7-18); CALCIUM 8.1 MG/DL (8.5-10.1); CHLORIDE 108 MMOL/L (99-107); CREATININE 0.89 MG/DL (0.40-0.90); GLUCOSE 109 MG/DL (70-104); MAGNESIUM 1.2 MG/DL (1.5-2.4); POTASSIUM 3.7 MMOL/L (3.5-5.1); SODIUM 142 MMOL/L (135-145); TOTAL CARBON DIOXIDE 25.7 MMOL/L (24-32); eGFR 63 ML/MIN
[2021-04-01] MEDS: K and/or MAG REPLACEMENT MC SCH ×2 (08:50→20:32)
[2021-04-01] MEDS: enoxaparin 30mg/0.3ml syringe SQ SCH ×2 (10:07→20:31)
[2021-04-01] MEDS: HYDROchlorothiazide 12.5mg capsule PO SCH (10:07)
[2021-04-01] MEDS: magnesium Cl slow-release 64mg tablet PO PRN ×2 (10:07→17:31)
[2021-04-01] MEDS: atorvastatin 10mg tablet PO SCH (10:07)
[2021-04-01] MEDS: lactobacillus rhamnosus 10,000 MMU CELLS/CAPSULE PO SCH ×2 (10:07→20:31)
[2021-04-01] MEDS: gabapentin 300mg capsule PO SCH ×2 (10:08→20:31)
[2021-04-01] MEDS: pantoprazole 40mg Tablet.DR PO SCH (10:08)
[2021-04-01] MEDS: amLODIPine 5mg tablet PO SCH (10:08)
[2021-04-01] MEDS: lisinopril 10 MG tablet PO SCH (10:09)
[2021-04-01] MEDS: HYDROcodone/acetaminophen 5mg/325mg tablet PO PRN ×4 (10:10→21:42)
[2021-04-01] MEDS: insulin glargine (Lantus) pen - multi-dose SQ SCH ×2 (10:13→19:06)
[2021-04-01] MEDS: docusate sod 100mg capsule PO SCH ×2 (10:14→20:00)
[2021-04-01 11:00] VITALS: BP 126/65
[2021-04-01] MEDS ORDERED: VANCOMYCIN LEVEL IV ONE (15:30)
[2021-04-01 19:00] VITALS: BP 101/41
[2021-04-01] MEDS ORDERED: vancomycin/NS 1 GM ADD-VANTAGE 250 ML IV ONE (20:00)
[2021-04-01] MEDS: amitriptyline 10mg tablet PO SCH (20:31)
[2021-04-01 23:00] VITALS: BP 122/59
[2021-04-02] MEDS: HYDROmorphone inj. 0.5 MG/0.5 ML DISP.SYRIN IV PRN ×4 (00:15→21:29)
[2021-04-02] MEDS: piperacillin/tazo 3.375gm/50ml 50 ML IV SCH ×4 (00:15→23:28)
[2021-04-02] MEDS: normal saline 1000ml 1,000 ML IV SCH ×2 (01:40→14:57)
[2021-04-02] MEDS: vancomycin/NS 1 GM ADD-VANTAGE 250 ML IV SCH ×2 (03:02→14:57)
[2021-04-02] MEDS ORDERED: vancomycin/NS 1 GM ADD-VANTAGE 250 ML IV SCH (05:00)
[2021-04-02] MEDS: HYDROcodone/acetaminophen 5mg/325mg tablet PO PRN (05:37)
--- NOTE | 2021-04-02 06:20 | NUR ---
Problems reprioritized. Patient report given, questions answered & plan of care reviewed with MORIS Velázquez.
--- NOTE | 2021-04-02 06:39 | NUR ---
Patient in room [facility]. I have received report from MORIS Obrien and had the opportunity to ask questions and assume patient care.
[2021-04-02 06:50] VITALS: BP 114/57
[2021-04-02 07:06] LABS: ANION GAP 5 (8-16); BLOOD UREA NITROGEN 9 MG/DL (7-18); CHLORIDE 105 MMOL/L (99-107); GLUCOSE 101 MG/DL (70-104); POTASSIUM 3.5 MMOL/L (3.5-5.1); SODIUM 134 MMOL/L (135-145); TOTAL CARBON DIOXIDE 24.2 MMOL/L (24-32); eGFR 62 ML/MIN
[2021-04-02 07:17] LABS: BASOPHILS % (AUTO) 0.5 % (0-1); EOSINOPHILS # (AUTO) 0.2 X10'3 (0-0.9); EOSINOPHILS % (AUTO) 3.8 % (0-6); HEMATOCRIT 28.1 % (35.0-45.0); HEMOGLOBIN 9.3 g/dl (12.0-16.0); LYMPHOCYTES # (AUTO) 2.3 X10'3 (1.1-4.8); LYMPHOCYTES % (AUTO) 38.8 % (21-51); MEAN CORPUSCULAR HEMOGLOBIN 27.8 PG (27.0-31.0); MEAN CORPUSCULAR HGB CONC 33.3 g/dL (33.0-36.5); MEAN CORPUSCULAR VOLUME 83.5 FL (78-98); MEAN PLATELET VOLUME 6.4 FL (7.4-10.4); MONOCYTES # (AUTO) 0.4 X10'3 (0-0.9); MONOCYTES % (AUTO) 6.8 % (2-12); NEUTROPHILS % (AUTO) 50.1 % (42-75); PLATELET COUNT 280 X10'3 (140-440); RED BLOOD COUNT 3.36 X10'6 (4.20-5.60); RED CELL DISTRIBUTION WIDTH 19.4 % (11.5-14.5)
[2021-04-02] MEDS: atorvastatin 10mg tablet PO SCH (07:46)
[2021-04-02] MEDS: lactobacillus rhamnosus 10,000 MMU CELLS/CAPSULE PO SCH ×2 (07:46→20:19)
[2021-04-02] MEDS: amLODIPine 5mg tablet PO SCH (07:46)
[2021-04-02] MEDS: HYDROchlorothiazide 12.5mg capsule PO SCH (07:46)
[2021-04-02] MEDS: pantoprazole 40mg Tablet.DR PO SCH (07:46)
[2021-04-02] MEDS: lisinopril 10 MG tablet PO SCH (07:46)
[2021-04-02] MEDS: gabapentin 300mg capsule PO SCH ×2 (07:47→20:18)
[2021-04-02] MEDS: enoxaparin 30mg/0.3ml syringe SQ SCH ×2 (07:53→20:19)
[2021-04-02] MEDS: K and/or MAG REPLACEMENT MC SCH ×2 (08:00→20:00)
[2021-04-02] MEDS: docusate sod 100mg capsule PO SCH ×2 (08:00→20:18)
[2021-04-02] MEDS: insulin glargine (Lantus) pen - multi-dose SQ SCH ×2 (10:37→20:47)
[2021-04-02 11:00] VITALS: BP 129/67
[2021-04-02] MEDS: ondansetron/PF 4mg/2ml inj IV PRN (12:00)
[2021-04-02 12:14] VITALS: BP 141/70
--- NOTE | 2021-04-02 12:33 | NUR ---
PAGER ID: [phone] MESSAGE: [id number]- Karen Healy- pt c/o dizziness and n/v. did have approx. 100ml of emesis. VSS 139/64, 78, 99RA, BG 110. Zofran given and sleeping now. Thank you- Melania [phone]
--- NOTE | 2021-04-02 13:43 | NUR ---
Initial: Pt admitted w/ pain and draining from L leg stump. Per physical assessment Pt A&O x 1 today, DM education not appropriate at this time. Noted that pt was provided w/ written DM education last admit one month ago, pt may benefit from verbal ed when more appropriate; A1C 9.2 02/25. Pt able to eat well, mostly 100% of meals on CCHO diet throughout [facility]. Pt may go for I&D of L leg stump per MD note. [facility] 04/01, no nutrition intervention implemented at this time, will continue to monitor. Recs: 1. Continue CCHO diet as tolerated, monitor for increased needs s/p I&D 2. Bowel care per rx 3. Weekly wts Addendum: 04/02/21 at [address] Amended: Links added.
--- NOTE | 2021-04-02 16:55 | NUR ---
PAGER ID: [phone] MESSAGE: [id number]- pt c/o feeling dizziness even when lying flat and c/o "sinus issues" as well as c/o itching. vss 97.6, 77, 20, 130/60, BG 97. Thank you- Melania [phone]
[2021-04-02] MEDS: amitriptyline 10mg tablet PO SCH (20:18)
--- NOTE | 2021-04-02 20:22 | NUR ---
Patient appears to be resting comfortably sleeping with eyes closed, respirations even and unlabored. When awaken for meds patient had no complaints other than wanting a jello..
[2021-04-02 20:31] VITALS: BP 128/67
[2021-04-03] VITALS (20 sets, daily range): BP systolic 102–145; BP diastolic 47–80
[2021-04-03] MEDS ORDERED: VANCOMYCIN LEVEL IV ONE (02:30)
[2021-04-03] MEDS: vancomycin/NS 1 GM ADD-VANTAGE 250 ML IV SCH (03:15)
[2021-04-03] MEDS: normal saline 1000ml 1,000 ML IV SCH ×3 (03:16→23:00)
[2021-04-03 03:44] LABS: MAGNESIUM 1.2 MG/DL (1.5-2.4)
[2021-04-03 03:49] LABS: VANCOMYCIN,TROUGH 23.3 UG/ML (6.0-14.0)
--- NOTE | 2021-04-03 04:03 | NUR ---
PAGER ID: [phone] MESSAGE: [id number]- Danielito Healy MG 1.2 ok to order K and MG replacement protocol? Thank you - Melania [phone]
[2021-04-03] MEDS ORDERED: potassium Cl 40MEQ/1/2NS 520ml 520 ML IV PRN (04:40)
[2021-04-03] MEDS ORDERED: potassium Cl 20 mEq SR tablet PO PRN (04:40)
[2021-04-03] MEDS ORDERED: magnesium 4gm in 100ml NS 100 ML IV PRN (04:40)
[2021-04-03] MEDS: magnesium Cl slow-release 64mg tablet PO PRN ×2 (04:59→21:14)
--- NOTE | 2021-04-03 06:32 | NUR ---
Problems reprioritized. Patient report given, questions answered & plan of care reviewed with MORIS Madden.
[2021-04-03] MEDS ORDERED: potassium CL 20mEq in D5-1/2NS 1,000 ML IV SCH (07:20)
[2021-04-03] MEDS: piperacillin/tazo 3.375gm/50ml 50 ML IV SCH ×3 (07:31→23:42)
[2021-04-03] MEDS: docusate sod 100mg capsule PO SCH ×2 (08:00→20:00)
[2021-04-03] MEDS: gabapentin 300mg capsule PO SCH ×2 (08:00→21:16)
[2021-04-03] MEDS: insulin glargine (Lantus) pen - multi-dose SQ SCH ×2 (08:00→21:34)
[2021-04-03] MEDS: enoxaparin 30mg/0.3ml syringe SQ SCH ×2 (08:00→21:17)
[2021-04-03] MEDS: atorvastatin 10mg tablet PO SCH (08:00)
[2021-04-03] MEDS: lisinopril 10 MG tablet PO SCH (08:00)
[2021-04-03] MEDS: HYDROchlorothiazide 12.5mg capsule PO SCH (08:00)
[2021-04-03] MEDS: lactobacillus rhamnosus 10,000 MMU CELLS/CAPSULE PO SCH ×2 (08:00→21:16)
[2021-04-03] MEDS: amLODIPine 5mg tablet PO SCH (08:00)
[2021-04-03] MEDS: K and/or MAG REPLACEMENT MC SCH ×2 (08:00→20:00)
[2021-04-03] MEDS: pantoprazole 40mg Tablet.DR PO SCH (08:00)
[2021-04-03] MEDS ORDERED: cloNIDine hcl/PF 100mcg/ml inj ONE (10:11)
--- NOTE | 2021-04-03 11:49 | NUR ---
patient seen by Dr Bashir is for surgery. Preop check list completed. 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 much time spent with patient . report called to Yary SUBRAMANIAN in recovery.
[2021-04-03] MEDS ORDERED: sevoflurane 250ml liquid IH ONE (12:45)
[2021-04-03] MEDS ORDERED: hydrALAZINE 20mg/ml inj. IV PRN (12:50)
[2021-04-03] MEDS ORDERED: labetalol 20mg/4ml (5mg/ml) syringe IV PRN (12:50)
[2021-04-03] MEDS ORDERED: proCHLORperazine 10 MG/2 ml inj IV PRN (12:50)
[2021-04-03] MEDS ORDERED: ondansetron/PF 4mg/2ml inj IV PRN (12:50)
[2021-04-03] MEDS ORDERED: morphine 2 MG/ML inj. syringe IV PRN (12:50)
[2021-04-03] MEDS ORDERED: meperidine/PF 25mg/ml syringe IV PRN ×2 (12:50)
[2021-04-03] MEDS ORDERED: morphine 4 MG/ML inj SYRINge IV PRN (12:50)
[2021-04-03] MEDS ORDERED: acetaminophen 1,000mg/100ml IV 100 ML IV PRN (12:50)
[2021-04-03] MEDS ORDERED: ringers solution, lacted 1,000 ML IV SCH (12:50)
[2021-04-03] MEDS ORDERED: dexamethasone sod phosphate 4mg/ml inj. ONE ×3 (13:29→13:37)
[2021-04-03] MEDS ORDERED: midazolam 1 mg/ML 2ml injection ONE (13:29)
[2021-04-03] MEDS ORDERED: ondansetron/PF 4mg/2ml inj ONE ×2 (13:29→13:30)
[2021-04-03] MEDS ORDERED: ROPIVAcaine 0.5% (5mg/ml) 30ml vial ONE (13:37)
[2021-04-03] MEDS ORDERED: fentaNYL/PF 50MCG/1 ML 2ML syringe ONE (13:37)
[2021-04-03] MEDS ORDERED: propofol inj 20 ML IV ONE (13:37)
[2021-04-03] MEDS ORDERED: LIDOcaine 2% (20mg/ml) 5ml vial ONE (13:38)
--- NOTE | 2021-04-03 14:06 | NUR ---
ASSUME CARE PT AWAKE CRYING STATING LEFT LEG HURTS. VSS NO DISTRESS. IV TO LEFT ARM CDI, DRESSING TO LEFT LEG WRAP WITH RENETTA WRAP CDI, ICE PK APPLIED TO SITE. CONT TO MONITOR Addendum: 04/03/21 at 1507 by Danette Pedersen RN Amended: Links added.
--- NOTE | 2021-04-03 14:10 | NUR ---
HEMOVAC DRAIN TO SUCTION SCANT AMT DRAINAGE NOTED DRESSING TO STUMP CDI. Addendum: 04/03/21 at 1514 by Danette Pedersen RN Amended: Links added.
[2021-04-03] MEDS: meperidine/PF 25mg/ml syringe IV PRN ×2 (14:13→14:49)
[2021-04-03] MEDS ORDERED: midazolam 1 mg/ML 2ml injection IV ONE (14:15)
--- NOTE | 2021-04-03 15:06 | NUR ---
PT MORE ALERT STATES FEELS BETTER VSS NO DISTRESS TAVO POS MEETS CRITERIA TO DC TO ROOM RN WILL CALL BACK FOR REPORT. Addendum: 04/03/21 at 1507 by Danette Pedersen RN Amended: Links added.
--- NOTE | 2021-04-03 15:40 | NUR ---
As resource RN, I received report from roofing superintendent. Patient arrived, VSS. Report given to MORIS Madden.
[2021-04-03] MEDS: vancomycin inj. 750 MG in normal saline 250ml IV soln 250 ML IV SCH (15:51)
--- NOTE | 2021-04-03 18:12 | NUR ---
patient went to surgery and had revision of left BKA with DR toledo. patient returned 1600hrs Post op vitals stable. hemovac drain in place minimal drainage . patient appears stable at this time. Report given to Delmy SUBRAMANIAN
--- NOTE | 2021-04-03 18:36 | NUR ---
Patient in room [facility]. I have received report from Maryanne SUBRAMANIAN and nursing center tutor Ovi and had the opportunity to ask questions and assume patient care.
[2021-04-03] MEDS: HYDROcodone/acetaminophen 5mg/325mg tablet PO PRN (19:03)
[2021-04-03] MEDS: HYDROmorphone inj. 0.5 MG/0.5 ML DISP.SYRIN IV PRN (21:12)
[2021-04-03] MEDS: amitriptyline 10mg tablet PO SCH (21:15)
[2021-04-03] MEDS: insulin Lispro (HumaLOG) vial - multi-dose SQ SCH (21:33)
[2021-04-04] VITALS: BP 116/56
[2021-04-04] MEDS: HYDROcodone/acetaminophen 5mg/325mg tablet PO PRN ×2 (00:57→09:47)
[2021-04-04] MEDS: vancomycin inj. 750 MG in normal saline 250ml IV soln 250 ML IV SCH ×2 (02:52→14:51)
[2021-04-04] MEDS: normal saline 1000ml 1,000 ML IV SCH ×2 (02:56→23:21)
--- NOTE | 2021-04-04 06:14 | NUR ---
Patient in room [facility]. I have received report from Delmy RN with Ne SUBRAMANIAN and had the opportunity to ask questions and assume patient care.
--- NOTE | 2021-04-04 06:20 | NUR ---
Problems reprioritized. Patient report given, questions answered & plan of care reviewed with Ne SUBRAMANIAN.
[2021-04-04 06:22] LABS: BASOPHILS % (AUTO) 0.1 % (0-1); EOSINOPHILS % (AUTO) 0 % (0-6); HEMATOCRIT 27.2 % (35.0-45.0); HEMOGLOBIN 9.2 g/dl (12.0-16.0); LYMPHOCYTES # (AUTO) 1.6 X10'3 (1.1-4.8); MEAN CORPUSCULAR VOLUME 82.3 FL (78-98); MEAN PLATELET VOLUME 6.6 FL (7.4-10.4); MONOCYTES # (AUTO) 0.4 X10'3 (0-0.9); NEUTROPHILS # (AUTO) 7.1 X10'3 (1.8-7.7); NEUTROPHILS % (AUTO) 77.9 % (42-75); PLATELET COUNT 287 X10'3 (140-440); RED CELL DISTRIBUTION WIDTH 18.7 % (11.5-14.5); WHITE BLOOD COUNT 9.1 X10'3 (4.5-11.0)
[2021-04-04 06:34] LABS: ALANINE AMINOTRANSFERASE 10 U/L (12-78); ALBUMIN/GLOBULIN RATIO 0.5 (1.1-1.5); ALKALINE PHOSPHATASE 106 IU/L (46-116); ANION GAP 9 (8-16); ASPARTATE AMINO TRANSFERASE 10 U/L (10-37); BILIRUBIN,TOTAL 0.2 MG/DL (0.1-1.0); BLOOD UREA NITROGEN 14 MG/DL (7-18); BUN/CREATININE RATIO 12.6 (6.6-38.0); CALCIUM 8.1 MG/DL (8.5-10.1); CHLORIDE 106 MMOL/L (99-107); CREATININE 1.11 MG/DL (0.40-0.90); GLUCOSE 198 MG/DL (70-104); POTASSIUM 3.6 MMOL/L (3.5-5.1); SODIUM 137 MMOL/L (135-145); TOTAL CARBON DIOXIDE 22.2 MMOL/L (24-32); TOTAL PROTEIN 6.3 G/DL (6.4-8.2); eGFR 49 ML/MIN
[2021-04-04] MEDS: piperacillin/tazo 3.375gm/50ml 50 ML IV SCH ×3 (07:32→23:21)
[2021-04-04] MEDS: pantoprazole 40mg Tablet.DR PO SCH (07:32)
[2021-04-04] MEDS: lisinopril 10 MG tablet PO SCH (07:33)
[2021-04-04] MEDS: atorvastatin 10mg tablet PO SCH (07:33)
[2021-04-04] MEDS: HYDROchlorothiazide 12.5mg capsule PO SCH (07:33)
[2021-04-04] MEDS: lactobacillus rhamnosus 10,000 MMU CELLS/CAPSULE PO SCH ×2 (07:33→21:35)
[2021-04-04] MEDS: gabapentin 300mg capsule PO SCH ×2 (07:34→21:35)
[2021-04-04] MEDS: amLODIPine 5mg tablet PO SCH (07:34)
[2021-04-04] MEDS: enoxaparin 30mg/0.3ml syringe SQ SCH ×2 (07:35→21:35)
[2021-04-04] MEDS: docusate sod 100mg capsule PO SCH (07:36)
[2021-04-04 08:00] VITALS: BP 147/79
[2021-04-04] MEDS: K and/or MAG REPLACEMENT MC SCH ×2 (08:00→20:00)
[2021-04-04] MEDS: insulin glargine (Lantus) pen - multi-dose SQ SCH ×2 (08:11→21:00)
[2021-04-04] MEDS: insulin Lispro (HumaLOG) vial - multi-dose SQ SCH ×2 (09:46→14:50)
[2021-04-04 11:00] VITALS: BP 147/79
[2021-04-04 11:07] LABS: BASOPHILS % (AUTO) 0.1 % (0-1); EOSINOPHILS % (AUTO) 0 % (0-6); HEMATOCRIT 26.2 % (35.0-45.0); HEMOGLOBIN 8.9 g/dl (12.0-16.0); LYMPHOCYTES # (AUTO) 2.1 X10'3 (1.1-4.8); LYMPHOCYTES % (AUTO) 19.9 % (21-51); MEAN CORPUSCULAR HEMOGLOBIN 27.7 PG (27.0-31.0); MEAN CORPUSCULAR HGB CONC 33.8 g/dL (33.0-36.5); MEAN CORPUSCULAR VOLUME 81.8 FL (78-98); MEAN PLATELET VOLUME 6.5 FL (7.4-10.4); MONOCYTES # (AUTO) 0.5 X10'3 (0-0.9); MONOCYTES % (AUTO) 4.4 % (2-12); NEUTROPHILS # (AUTO) 8.1 X10'3 (1.8-7.7); NEUTROPHILS % (AUTO) 75.6 % (42-75); PLATELET COUNT 292 X10'3 (140-440); RED CELL DISTRIBUTION WIDTH 18.6 % (11.5-14.5); WHITE BLOOD COUNT 10.8 X10'3 (4.5-11.0)
[2021-04-04] MEDS: HYDROmorphone inj. 0.5 MG/0.5 ML DISP.SYRIN IV PRN ×3 (11:13→22:30)
[2021-04-04 11:17] LABS: ALANINE AMINOTRANSFERASE 10 U/L (12-78); ALBUMIN/GLOBULIN RATIO 0.5 (1.1-1.5); ALKALINE PHOSPHATASE 94 IU/L (46-116); ANION GAP 12 (8-16); ASPARTATE AMINO TRANSFERASE 11 U/L (10-37); BILIRUBIN,TOTAL 0.2 MG/DL (0.1-1.0); BLOOD UREA NITROGEN 16 MG/DL (7-18); BUN/CREATININE RATIO 15.7 (6.6-38.0); CHLORIDE 104 MMOL/L (99-107); CREATININE 1.02 MG/DL (0.40-0.90); GLUCOSE 188 MG/DL (70-104); MAGNESIUM 1.2 MG/DL (1.5-2.4); POTASSIUM 3.6 MMOL/L (3.5-5.1); SODIUM 138 MMOL/L (135-145); TOTAL CARBON DIOXIDE 21.7 MMOL/L (24-32); TOTAL PROTEIN 6.2 G/DL (6.4-8.2); eGFR 54 ML/MIN
[2021-04-04 12:18] LABS: ANISOCYTOSIS 2+; PLATELET ESTIMATE NORMAL
[2021-04-04] MEDS: magnesium Cl slow-release 64mg tablet PO PRN (14:50)
--- NOTE | 2021-04-04 16:00 | NUR ---
[place] removed per order, counted 11 of them. sutures can come out next, patient tolerated well
--- NOTE | 2021-04-04 16:06 | NUR ---
Spoke with Sherin regarding DC surgical drain orders along with do not remove dressing orders. She said to cancel the order and she will pull the drain tomorrow.
--- NOTE | 2021-04-04 18:02 | NUR ---
Student documentation: I have reviewed and agree with all interventions, assessments performed and documented by SN Padmini. Student Medication Administration: For this medication-pass time frame, all medication were reviewed, dispensed, administered and documented per hospital policy by SN Padmini.
--- NOTE | 2021-04-04 18:05 | NUR ---
Problems reprioritized. Patient report given TO Eunice RN with Sindhu RN, questions answered & plan of care reviewed with .
[2021-04-04 19:00] VITALS: BP 146/61
[2021-04-04] MEDS: HYDROcodone/acetaminophen 10/325mg tab PO PRN (20:01)
[2021-04-04] MEDS: amitriptyline 10mg tablet PO SCH (21:35)
[2021-04-05] VITALS: BP 133/52
[2021-04-05] MEDS ORDERED: VANCOMYCIN LEVEL IV ONE (02:30)
[2021-04-05 03:03] LABS: BASOPHILS % (AUTO) 0.4 % (0-1); EOSINOPHILS # (AUTO) 0.1 X10'3 (0-0.9); EOSINOPHILS % (AUTO) 0.9 % (0-6); HEMATOCRIT 24.9 % (35.0-45.0); HEMOGLOBIN 8.5 g/dl (12.0-16.0); LYMPHOCYTES # (AUTO) 2.6 X10'3 (1.1-4.8); LYMPHOCYTES % (AUTO) 32.6 % (21-51); MEAN CORPUSCULAR HGB CONC 34.3 g/dL (33.0-36.5); MEAN CORPUSCULAR VOLUME 81.5 FL (78-98); MEAN PLATELET VOLUME 6.7 FL (7.4-10.4); MONOCYTES # (AUTO) 0.5 X10'3 (0-0.9); MONOCYTES % (AUTO) 5.8 % (2-12); NEUTROPHILS # (AUTO) 4.9 X10'3 (1.8-7.7); NEUTROPHILS % (AUTO) 60.3 % (42-75); PLATELET COUNT 300 X10'3 (140-440); RED BLOOD COUNT 3.05 X10'6 (4.20-5.60); RED CELL DISTRIBUTION WIDTH 18.7 % (11.5-14.5); WHITE BLOOD COUNT 8.1 X10'3 (4.5-11.0)
[2021-04-05 03:22] LABS: ALANINE AMINOTRANSFERASE 9 U/L (12-78); ALBUMIN/GLOBULIN RATIO 0.5 (1.1-1.5); ALKALINE PHOSPHATASE 89 IU/L (46-116); ANION GAP 11 (8-16); ASPARTATE AMINO TRANSFERASE 10 U/L (10-37); BILIRUBIN,TOTAL 0.1 MG/DL (0.1-1.0); BLOOD UREA NITROGEN 15 MG/DL (7-18); BUN/CREATININE RATIO 16.1 (6.6-38.0); CALCIUM 8.3 MG/DL (8.5-10.1); CHLORIDE 107 MMOL/L (99-107); CREATININE 0.93 MG/DL (0.40-0.90); GLUCOSE 111 MG/DL (70-104); POTASSIUM 3.2 MMOL/L (3.5-5.1); SODIUM 141 MMOL/L (135-145); TOTAL CARBON DIOXIDE 22.7 MMOL/L (24-32); TOTAL PROTEIN 6.2 G/DL (6.4-8.2); eGFR 60 ML/MIN
[2021-04-05 03:24] LABS: VANCOMYCIN,TROUGH 22.5 UG/ML (6.0-14.0)
[2021-04-05] MEDS: vancomycin inj. 750 MG in normal saline 250ml IV soln 250 ML IV SCH (03:35)
[2021-04-05] MEDS: HYDROmorphone inj. 0.5 MG/0.5 ML DISP.SYRIN IV PRN ×2 (03:36→10:55)
[2021-04-05] MEDS: normal saline 1000ml 1,000 ML IV SCH ×2 (05:03→10:42)
[2021-04-05 05:23] VITALS: BP 116/55
--- NOTE | 2021-04-05 06:15 | NUR ---
Patient in room [facility]. I have received report from Eunice SUBRAMANIAN and had the opportunity to ask questions and assume patient care.
--- NOTE | 2021-04-05 06:47 | NUR ---
Patient alert and oriented times three. Pain medication given for leg pain and was effective. Informed [facility] critical lab result, stated staff will Follow up in the morning. ABT given, no adverse recation noted. Report given to AM nurse. Continue to monitor.
[2021-04-05 08:00] VITALS: BP 140/63
[2021-04-05] MEDS: K and/or MAG REPLACEMENT MC SCH ×2 (08:00→20:00)
[2021-04-05] MEDS: insulin glargine (Lantus) pen - multi-dose SQ SCH ×2 (08:00→21:00)
[2021-04-05] MEDS: enoxaparin 30mg/0.3ml syringe SQ SCH ×2 (08:18→20:04)
[2021-04-05] MEDS: lactobacillus rhamnosus 10,000 MMU CELLS/CAPSULE PO SCH ×2 (08:18→20:00)
[2021-04-05] MEDS: lisinopril 10 MG tablet PO SCH (08:19)
[2021-04-05] MEDS: pantoprazole 40mg Tablet.DR PO SCH (08:19)
[2021-04-05] MEDS: atorvastatin 10mg tablet PO SCH (08:19)
[2021-04-05] MEDS: gabapentin 300mg capsule PO SCH ×2 (08:20→20:00)
[2021-04-05] MEDS: amLODIPine 5mg tablet PO SCH (08:21)
[2021-04-05] MEDS: HYDROcodone/acetaminophen 10/325mg tab PO PRN (08:22)
[2021-04-05] MEDS: potassium Cl 20 mEq SR tablet PO PRN ×3 (08:23→21:48)
[2021-04-05] MEDS: piperacillin/tazo 3.375gm/50ml 50 ML IV SCH (08:28)
[2021-04-05] MEDS: HYDROchlorothiazide 12.5mg capsule PO SCH (08:28)
[2021-04-05 11:00] VITALS: BP 125/55
[2021-04-05] MEDS: CefTRIAXone 2gm/D5W 50ml BAG 50 ML IV SCH (12:49)
[2021-04-05] MEDS: oxyCODONE/APAP 10/325mg tablet PO PRN ×2 (14:37→21:51)
--- NOTE | 2021-04-05 18:38 | NUR ---
Problems reprioritized. Patient report given, questions answered & plan of care reviewed with Prudence RN.
[2021-04-05] MEDS: amitriptyline 10mg tablet PO SCH (20:01)
[2021-04-05] MEDS ORDERED: magnesium 2GM in 50ml NS 50 ML IV ONE (21:40)
[2021-04-05 23:40] VITALS: BP 148/64
[2021-04-06] MEDS: potassium Cl 20 mEq SR tablet PO PRN (02:16)
[2021-04-06] MEDS ORDERED: vancomycin inj 500 MG in normal saline 100ml IV soln 100 ML IV SCH (03:00)
--- NOTE | 2021-04-06 04:42 | NUR ---
Student documentation: I have reviewed and agree with all interventions, assessments performed and documented by cuba sánchez.
--- NOTE | 2021-04-06 06:25 | NUR ---
Problems reprioritized. Patient report given, questions answered & plan of care reviewed with TINY SUBRAMANIAN.
--- NOTE | 2021-04-06 06:37 | NUR ---
Patient in room [facility]. I have received report from MORIS Johnson and had the opportunity to ask questions and assume patient care.
[2021-04-06 06:53] LABS: ALANINE AMINOTRANSFERASE 13 U/L (12-78); ALBUMIN 2.3 G/DL (3.4-5.0); ALBUMIN/GLOBULIN RATIO 0.5 (1.1-1.5); ALKALINE PHOSPHATASE 97 IU/L (46-116); ANION GAP 12 (8-16); ASPARTATE AMINO TRANSFERASE 16 U/L (10-37); BILIRUBIN,TOTAL 0.2 MG/DL (0.1-1.0); BLOOD UREA NITROGEN 15 MG/DL (7-18); BUN/CREATININE RATIO 19.5 (6.6-38.0); CALCIUM 8.8 MG/DL (8.5-10.1); CHLORIDE 106 MMOL/L (99-107); CREATININE 0.77 MG/DL (0.40-0.90); GLUCOSE 104 MG/DL (70-104); POTASSIUM 4.8 MMOL/L (3.5-5.1); SODIUM 140 MMOL/L (135-145); TOTAL CARBON DIOXIDE 22.2 MMOL/L (24-32); TOTAL PROTEIN 6.8 G/DL (6.4-8.2); eGFR 74 ML/MIN
[2021-04-06 07:00] VITALS: BP 142/72
[2021-04-06 07:00] LABS: BASOPHILS % (AUTO) 0.4 % (0-1); EOSINOPHILS # (AUTO) 0.1 X10'3 (0-0.9); EOSINOPHILS % (AUTO) 1.7 % (0-6); HEMATOCRIT 28.7 % (35.0-45.0); HEMOGLOBIN 9.6 g/dl (12.0-16.0); LYMPHOCYTES # (AUTO) 2.7 X10'3 (1.1-4.8); LYMPHOCYTES % (AUTO) 31.5 % (21-51); MEAN CORPUSCULAR HEMOGLOBIN 27.7 PG (27.0-31.0); MEAN CORPUSCULAR HGB CONC 33.4 g/dL (33.0-36.5); MEAN PLATELET VOLUME 6.9 FL (7.4-10.4); MONOCYTES # (AUTO) 0.6 X10'3 (0-0.9); MONOCYTES % (AUTO) 7.1 % (2-12); NEUTROPHILS % (AUTO) 59.3 % (42-75); PLATELET COUNT 354 X10'3 (140-440); RED BLOOD COUNT 3.46 X10'6 (4.20-5.60); RED CELL DISTRIBUTION WIDTH 19.4 % (11.5-14.5); WHITE BLOOD COUNT 8.5 X10'3 (4.5-11.0)
[2021-04-06] MEDS: K and/or MAG REPLACEMENT MC SCH ×2 (08:00→19:14)
[2021-04-06] MEDS: CefTRIAXone 2gm/D5W 50ml BAG 50 ML IV SCH (08:48)
[2021-04-06] MEDS: gabapentin 300mg capsule PO SCH ×2 (08:49→19:32)
[2021-04-06] MEDS: enoxaparin 30mg/0.3ml syringe SQ SCH ×2 (08:49→19:33)
[2021-04-06] MEDS: HYDROchlorothiazide 12.5mg capsule PO SCH (08:49)
[2021-04-06] MEDS: amLODIPine 5mg tablet PO SCH (08:49)
[2021-04-06] MEDS: lactobacillus rhamnosus 10,000 MMU CELLS/CAPSULE PO SCH ×2 (08:49→19:32)
[2021-04-06] MEDS: atorvastatin 10mg tablet PO SCH (08:50)
[2021-04-06] MEDS: lisinopril 10 MG tablet PO SCH (08:50)
[2021-04-06] MEDS: HYDROmorphone inj. 0.5 MG/0.5 ML DISP.SYRIN IV PRN ×2 (08:51→16:22)
[2021-04-06] MEDS: pantoprazole 40mg Tablet.DR PO SCH (08:52)
[2021-04-06] MEDS: insulin glargine (Lantus) pen - multi-dose SQ SCH ×2 (09:04→21:00)
[2021-04-06 11:00] VITALS: BP 128/70
--- NOTE | 2021-04-06 11:46 | NUR ---
DM consult: A1C 9.2 in February of this year. At bedside to provide pt w/ written and verbal diet education, pt declined verbal ed at this time. Provided pt w/ written DM ed w/ RD contact info attached. Will continue to monitor. Addendum: 04/06/21 at [address] Amended: Links added.
[2021-04-06] MEDS: ondansetron/PF 4mg/2ml inj IV PRN (16:21)
[2021-04-06 18:00] VITALS: BP 126/59
--- NOTE | 2021-04-06 18:39 | NUR ---
Problems reprioritized. Patient report given, questions answered & plan of care reviewed with Ibeth Cardoso RN.
[2021-04-06] MEDS: amitriptyline 10mg tablet PO SCH (19:32)
[2021-04-06] MEDS: oxyCODONE/APAP 10/325mg tablet PO PRN (19:36)
[2021-04-06 22:00] VITALS: BP 113/56
--- NOTE | 2021-04-07 01:05 | NUR ---
reviewed and edited SRN assessment.
[2021-04-07] MEDS: oxyCODONE/APAP 10/325mg tablet PO PRN ×3 (05:35→22:26)
--- NOTE | 2021-04-07 05:57 | NUR ---
Problems reprioritized. Patient report given, questions answered & plan of care reviewed with MORIS Wetzel. Addendum: 04/07/21 at 0644 by Gertrude Guerrero RN antony not here, ozzie was given report.
[2021-04-07 06:22] LABS: BASOPHILS % (AUTO) 0.3 % (0-1); EOSINOPHILS # (AUTO) 0.2 X10'3 (0-0.9); EOSINOPHILS % (AUTO) 2.2 % (0-6); HEMATOCRIT 31.3 % (35.0-45.0); HEMOGLOBIN 10.7 g/dl (12.0-16.0); LYMPHOCYTES # (AUTO) 3.5 X10'3 (1.1-4.8); LYMPHOCYTES % (AUTO) 39.5 % (21-51); MEAN CORPUSCULAR HEMOGLOBIN 28.1 PG (27.0-31.0); MEAN CORPUSCULAR HGB CONC 34.2 g/dL (33.0-36.5); MEAN CORPUSCULAR VOLUME 82.1 FL (78-98); MEAN PLATELET VOLUME 6.7 FL (7.4-10.4); MONOCYTES # (AUTO) 0.6 X10'3 (0-0.9); MONOCYTES % (AUTO) 6.3 % (2-12); NEUTROPHILS # (AUTO) 4.6 X10'3 (1.8-7.7); NEUTROPHILS % (AUTO) 51.7 % (42-75); PLATELET COUNT 391 X10'3 (140-440); RED BLOOD COUNT 3.81 X10'6 (4.20-5.60); RED CELL DISTRIBUTION WIDTH 19.9 % (11.5-14.5); WHITE BLOOD COUNT 8.9 X10'3 (4.5-11.0)
[2021-04-07 06:58] LABS: ALANINE AMINOTRANSFERASE 13 U/L (12-78); ALBUMIN 2.4 G/DL (3.4-5.0); ALBUMIN/GLOBULIN RATIO 0.5 (1.1-1.5); ALKALINE PHOSPHATASE 107 IU/L (46-116); ANION GAP 11 (8-16); ASPARTATE AMINO TRANSFERASE 12 U/L (10-37); BILIRUBIN,TOTAL 0.3 MG/DL (0.1-1.0); BLOOD UREA NITROGEN 18 MG/DL (7-18); BUN/CREATININE RATIO 16.8 (6.6-38.0); CHLORIDE 102 MMOL/L (99-107); CREATININE 1.07 MG/DL (0.40-0.90); GLUCOSE 116 MG/DL (70-104); POTASSIUM 4.6 MMOL/L (3.5-5.1); SODIUM 138 MMOL/L (135-145); TOTAL CARBON DIOXIDE 25.5 MMOL/L (24-32); TOTAL PROTEIN 7.1 G/DL (6.4-8.2); eGFR 51 ML/MIN
[2021-04-07 07:00] VITALS: BP 125/63
[2021-04-07] MEDS: K and/or MAG REPLACEMENT MC SCH ×2 (08:00→20:00)
[2021-04-07] MEDS: pantoprazole 40mg Tablet.DR PO SCH (08:38)
[2021-04-07] MEDS: enoxaparin 30mg/0.3ml syringe SQ SCH ×2 (08:38→20:39)
[2021-04-07] MEDS: atorvastatin 10mg tablet PO SCH (08:38)
[2021-04-07] MEDS: lisinopril 10 MG tablet PO SCH (08:39)
[2021-04-07] MEDS: gabapentin 300mg capsule PO SCH ×2 (08:39→20:38)
[2021-04-07] MEDS: lactobacillus rhamnosus 10,000 MMU CELLS/CAPSULE PO SCH ×2 (08:39→20:38)
[2021-04-07] MEDS: amLODIPine 5mg tablet PO SCH (08:39)
[2021-04-07] MEDS: CefTRIAXone 2gm/D5W 50ml BAG 50 ML IV SCH (09:20)
[2021-04-07] MEDS: HYDROchlorothiazide 12.5mg capsule PO SCH (09:20)
[2021-04-07] MEDS: insulin glargine (Lantus) pen - multi-dose SQ SCH ×2 (09:35→21:00)
[2021-04-07 11:00] VITALS: BP 129/65
[2021-04-07] MEDS: sertraline 50mg tablet PO SCH (13:43)
[2021-04-07] MEDS: insulin Lispro (HumaLOG) vial - multi-dose SQ SCH (14:19)
[2021-04-07] MEDS ORDERED: VANCOMYCIN LEVEL IV ONE (14:30)
[2021-04-07 16:50] VITALS: BP 125/63
[2021-04-07 20:00] VITALS: BP 129/81
[2021-04-07] MEDS: amitriptyline 10mg tablet PO SCH (20:38)
[2021-04-08] VITALS: BP 123/50
--- NOTE | 2021-04-08 01:21 | NUR ---
reviewed and edited SRN assessment.
[2021-04-08] MEDS: oxyCODONE/APAP 10/325mg tablet PO PRN ×3 (05:26→19:49)
[2021-04-08 06:09] LABS: BASOPHILS % (AUTO) 0.6 % (0-1); EOSINOPHILS # (AUTO) 0.2 X10'3 (0-0.9); EOSINOPHILS % (AUTO) 2.5 % (0-6); HEMATOCRIT 31.9 % (35.0-45.0); HEMOGLOBIN 10.7 g/dl (12.0-16.0); LYMPHOCYTES % (AUTO) 36.7 % (21-51); MEAN CORPUSCULAR HEMOGLOBIN 27.8 PG (27.0-31.0); MEAN CORPUSCULAR HGB CONC 33.6 g/dL (33.0-36.5); MEAN CORPUSCULAR VOLUME 82.9 FL (78-98); MEAN PLATELET VOLUME 6.8 FL (7.4-10.4); MONOCYTES # (AUTO) 0.5 X10'3 (0-0.9); MONOCYTES % (AUTO) 6.4 % (2-12); NEUTROPHILS # (AUTO) 4.4 X10'3 (1.8-7.7); NEUTROPHILS % (AUTO) 53.8 % (42-75); PLATELET COUNT 432 X10'3 (140-440); RED BLOOD COUNT 3.85 X10'6 (4.20-5.60); RED CELL DISTRIBUTION WIDTH 20.3 % (11.5-14.5); WHITE BLOOD COUNT 8.2 X10'3 (4.5-11.0)
--- NOTE | 2021-04-08 06:20 | NUR ---
Problems reprioritized. Patient report given, questions answered & plan of care reviewed with MORIS Carreno.
[2021-04-08 06:31] LABS: ALANINE AMINOTRANSFERASE 12 U/L (12-78); ALBUMIN 2.6 G/DL (3.4-5.0); ALBUMIN/GLOBULIN RATIO 0.5 (1.1-1.5); ALKALINE PHOSPHATASE 107 IU/L (46-116); ANION GAP 11 (8-16); ASPARTATE AMINO TRANSFERASE 15 U/L (10-37); BILIRUBIN,TOTAL 0.3 MG/DL (0.1-1.0); BLOOD UREA NITROGEN 24 MG/DL (7-18); BUN/CREATININE RATIO 22.2 (6.6-38.0); CALCIUM 9.1 MG/DL (8.5-10.1); CHLORIDE 99 MMOL/L (99-107); CREATININE 1.08 MG/DL (0.40-0.90); GLUCOSE 100 MG/DL (70-104); POTASSIUM 3.8 MMOL/L (3.5-5.1); SODIUM 135 MMOL/L (135-145); TOTAL CARBON DIOXIDE 25.3 MMOL/L (24-32); TOTAL PROTEIN 7.6 G/DL (6.4-8.2); eGFR 50 ML/MIN
--- NOTE | 2021-04-08 06:39 | NUR ---
Patient in room [facility]. I have received report from alejandro petersen and had the opportunity to ask questions and assume patient care.
[2021-04-08] MEDS: HYDROchlorothiazide 12.5mg capsule PO SCH (07:35)
[2021-04-08] MEDS: pantoprazole 40mg Tablet.DR PO SCH (07:35)
[2021-04-08] MEDS: CefTRIAXone 2gm/D5W 50ml BAG 50 ML IV SCH (07:35)
[2021-04-08] MEDS: sertraline 50mg tablet PO SCH (07:35)
[2021-04-08] MEDS: lactobacillus rhamnosus 10,000 MMU CELLS/CAPSULE PO SCH ×2 (07:36→19:49)
[2021-04-08] MEDS: atorvastatin 10mg tablet PO SCH (07:36)
[2021-04-08] MEDS: gabapentin 300mg capsule PO SCH ×2 (07:36→19:49)
[2021-04-08] MEDS: enoxaparin 30mg/0.3ml syringe SQ SCH ×2 (07:37→19:49)
[2021-04-08] MEDS: lisinopril 10 MG tablet PO SCH (07:40)
[2021-04-08] MEDS: amLODIPine 5mg tablet PO SCH (07:40)
[2021-04-08 08:00] VITALS: BP 94/52
[2021-04-08] MEDS: K and/or MAG REPLACEMENT MC SCH ×2 (08:00→20:00)
[2021-04-08] MEDS: insulin glargine (Lantus) pen - multi-dose SQ SCH ×2 (08:39→21:00)
--- NOTE | 2021-04-08 10:46 | NUR ---
Reassessment: Pt s/p revision and I&D of left BKA 04/03. Incision on stump is healing well per PA notes. Pt continues on CHO controlled diet with slight fluctuations though overall eating well with average 75% PO intake. LBM 04/06. No nutrition intervention implemented at this time. Will continue to follow. Recommendations: 1. Continue CHO controlled diet; consider liberalizing to regular diet IF BG levels continue to be well controlled 2. Monitor need for additional protein 3. Routine bowel care 4. Scaled weight this admit; weekly scaled weights thereafter Addendum: 04/08/21 at [address] Amended: Links added.
[2021-04-08 11:00] VITALS: BP 96/41
[2021-04-08] MEDS: HYDROmorphone inj. 0.5 MG/0.5 ML DISP.SYRIN IV PRN (15:29)
--- NOTE | 2021-04-08 18:29 | NUR ---
Patient in room [facility]. I have received report from MORIS Carreno and had the opportunity to ask questions and assume patient care.
--- NOTE | 2021-04-08 18:37 | NUR ---
Problems reprioritized. Patient report given, questions answered & plan of care reviewed with beau petersen. Addendum: 04/08/21 at 1839 by Ev Lombardo RN Problems reprioritized. Patient report given, questions answered & plan of care reviewed with Susie petersen.
--- NOTE | 2021-04-08 18:39 | NUR ---
Problems reprioritized. Patient report given, questions answered & plan of care reviewed with beau rn.
[2021-04-08 19:00] VITALS: BP 136/57
[2021-04-08] MEDS: amitriptyline 10mg tablet PO SCH (21:10)
[2021-04-08 23:59] VITALS: BP 107/54
[2021-04-09] MEDS: oxyCODONE/APAP 10/325mg tablet PO PRN ×3 (04:03→15:23)
[2021-04-09 06:30] VITALS: BP 108/47
--- NOTE | 2021-04-09 06:30 | NUR ---
Patient in room [facility]. I have received report from MORIS Richards and had the opportunity to ask questions and assume patient care.
--- NOTE | 2021-04-09 06:35 | NUR ---
Problems reprioritized. Patient report given, questions answered & plan of care reviewed with MORIS Obrien.
[2021-04-09] MEDS: HYDROmorphone inj. 0.5 MG/0.5 ML DISP.SYRIN IV PRN (06:36)
[2021-04-09] MEDS: K and/or MAG REPLACEMENT MC SCH (07:27)
[2021-04-09] MEDS: pantoprazole 40mg Tablet.DR PO SCH (08:43)
[2021-04-09] MEDS: CefTRIAXone 2gm/D5W 50ml BAG 50 ML IV SCH (08:43)
[2021-04-09] MEDS: enoxaparin 30mg/0.3ml syringe SQ SCH (08:43)
[2021-04-09] MEDS: HYDROchlorothiazide 12.5mg capsule PO SCH (08:43)
[2021-04-09] MEDS: lisinopril 10 MG tablet PO SCH (08:43)
[2021-04-09] MEDS: gabapentin 300mg capsule PO SCH (08:43)
[2021-04-09] MEDS: atorvastatin 10mg tablet PO SCH (08:45)
[2021-04-09] MEDS: lactobacillus rhamnosus 10,000 MMU CELLS/CAPSULE PO SCH (08:45)
[2021-04-09] MEDS: amLODIPine 5mg tablet PO SCH (08:45)
[2021-04-09] MEDS: sertraline 50mg tablet PO SCH (08:45)
[2021-04-09] MEDS: insulin glargine (Lantus) pen - multi-dose SQ SCH (08:47)
[2021-04-09] MEDS ORDERED: OXYC1TAB17 PO (10:11)
[2021-04-09] MEDS ORDERED: SERT-433 PO (10:11)
[2021-04-09] MEDS ORDERED: LEVO750T46 PO (10:11)
[2021-04-09 11:00] VITALS: BP 106/62
--- NOTE | 2021-04-09 17:05 | NUR ---
DC inst provided to pt. IV DC'd, tip intact. All belongings sent w/pt. WC to vehicle.
== END 2021-04-09 17:10 | disposition home health service (06) | DRG 908 ==
LOC: ER 10:51 → UNDOADMIN 14:54 → ED HOLD 14:54 → SUR 3N 17:50
PROVIDERS: ADMIT Family Medicine; ATTEND Family Medicine
PROC: BQ2S1ZZ Computerized Tomography (CT Scan) of Left Lower Extremity using Low Osmolar Contrast (ICD-10-PCS; 2021-03-29)
PROC: 0KBT0ZZ Excision of Left Lower Leg Muscle, Open Approach (ICD-10-PCS; 2021-04-03)
PROC: 3E0T33Z Introduction of Anti-inflammatory into Peripheral Nerves and Plexi, Percutaneous Approach (ICD-10-PCS; 2021-04-03)
PROC: 3E0T3BZ Introduction of Anesthetic Agent into Peripheral Nerves and Plexi, Percutaneous Approach (ICD-10-PCS; principal; 2021-04-03 12:45)
DX: T81.31XA Disruption of external operation (surgical) wound, not elsewhere classified, initial encounter (principal); T87.44 Infection of amputation stump, left lower extremity; E44.0 Moderate protein-calorie malnutrition; E11.51 Type 2 diabetes mellitus with diabetic peripheral angiopathy without gangrene; F17.210 Nicotine dependence, cigarettes, uncomplicated; F19.90 Other psychoactive substance use, unspecified, uncomplicated; F12.90 Cannabis use, unspecified, uncomplicated; I10 Essential (primary) hypertension; M19.90 Unspecified osteoarthritis, unspecified site; B96.4 Proteus (mirabilis) (morganii) as the cause of diseases classified elsewhere; F32.A Depression, unspecified; Y83.5 Amputation of limb(s) as the cause of abnormal reaction of the patient, or of later complication, without mention of misadventure at the time of the procedure; Z20.822 Contact with and (suspected) exposure to COVID-19; Z68.25 Body mass index [BMI] 25.0-25.9, adult; Y92.89 Other specified places as the place of occurrence of the external cause; Z59.00 Homelessness unspecified; Z88.5 Allergy status to narcotic agent; Z89.212 Acquired absence of left upper limb below elbow; Z79.899 Other long term (current) drug therapy; Z79.4 Long term (current) use of insulin; E87.6 Hypokalemia
CPT/HCPCS: 36415; 71045; 73701; 80048; 80053; 80202; 80305; 81001; 82948; 83605; 83735; 84145; 85008; 85025; 87040; 87070; 87075; 87077; 87088; 87102; 87186; 87635; 93005; 96365; 97110; 97161; 97530; 99285; A4618; A6446; A6449; A7000; G0378; J0696; J0735; J1100; J1170; J1650; J1815; J2001; J2175; J2250; J2405; J2543; J2704; J2795; J3010; J3370; J3475; J3480; J7030; J7050; Q9967